=== PATIENT | female | born 1950 | race Caucasian/White ===

== ENCOUNTER 2022-08-04 08:00 | Outpatient (CLI) | payer MEDICARE, BC, SELFPAY ==
--- OUTSIDE RECORDS SUMMARY | 2022-08-04 08:05 | XMS_ITS | Encounter Summary ---
:1950 Author Organization [facility] Address [address] [place] [id number] Care Team Providers Name Role Phone Unavailable Primary Care Provider Unavailable Reason for Visit Auth/Cert (Routine) - Closed Specialty Diagnoses / Procedures Referred By Contact Refer red To Contact Gastroenterology Diagnoses Polyp History Rh Endoscopy Procedures COLONOSCOPY [address] [place] [address] Phone: Fax: Referral ID Status Reason Start Date Expiration Date Visits Requ ested Visits Authorized [id number] Closed 1 1 Encounter Details Date Type Department Care Team Description 06/05/2012 Hospital Encounter [facility] Wilfredo Kay MD Endoscopy [facility] [address] [place] [address] [place], [place] [phone] (Wo rk) [id number] [phone] Social History Tobacco Use Types Packs/Day Years Used Date Former Smoker Quit: 06/05/19 88 Smokeless Tobacco: Former User Alcohol Use Standard Drinks/Week Comments Yes 0 (1 standard drink = 0.6 oz pure alcoho l) daily Alcohol Habits Answer Date Recorded How often do you have a drink containing alcohol? Not asked How many drinks containing alcohol do you have on a typical Not asked day when you are drinking? How often do you have six or more drinks on one occasion? No t asked Comment: daily 06/05/2012 Sex Assigned at Date Recorded Not on file documented as of this encounter Last Filed Vital Signs Vital Sign Reading Time Taken Comments Blood Pressure 103/64 06/05/2012 9:54 AM CDT Pulse - - Temperature - - Respiratory Rate 12 06/05/2012 9:54 AM CDT Oxygen Saturation 95% 06/05/2012 9:54 AM CDT Inhaled Oxygen Concentration - - Weight 61.2 kg (135 lb) 06/05/2012 8:33 AM CDT Height 162.6 cm (5' 4) 06/05/2012 8:33 AM CDT Body Mass Index 23.17 06/05/2012 8:33 AM CDT documented in this encounter Medications at Time of Discharge Medication Sig Dispensed Refills Start Date End Date Multiple Vitamin Take 1 tablet by 0 (MULTI-VITAMIN) per tablet mouth daily. psyllium 0.52 GM capsule Take 1 capsule by 0 mouth daily. SIMVASTATIN PO Take by mouth. 0 documented as of this encounter H&P Notes Trae Kay MD - 06/05/2012 8:59 AM CDT Pre-Endoscopy History and Physical Jeanine Pettit Date of : 1950 Age: [age] year old Date of Procedure: 06/05/2012 Primary care provider: No primary provider on file. Type of Endoscopy: colonoscopy Reason for Procedure: Hx of polyps - sessile serrated adenoma of right colon Type of Anesthesia Anticipated: Moderate (conscious) sedation } HPI: Jeanine is a 61 year old female who will be undergoing the above procedure. A history and physical has been performed. The patient's medications and allergies have been reviewed. The risks and benefits of the procedure and the sedation options and risks were discussed with thepatient. All questions were answered and informed consent was obtained. She reports a personal or family history of anesthesia complications or bleeding disorders. Allergies Allergen Reactions ??? Demerol Nausea and Vomiting Current Facility-Administered Medications Medication ??? Lidocaine 1% injection 1 mL ??? lidocaine 4 % (LMX4) cream ??? sodium chloride (PF) 0.9% flush 3 mL ??? sodium chloride (PF) 0.9% flush 3 mL ??? Lidocaine 1% injection 1 mL ??? lidocaine 4 % (LMX4) cream ??? sodium chloride (PF) 0.9% flush 3 mL ??? sodium chloride (PF) 0.9% flush 3 mL There is no problem list on file for this patient. Past Medical History Diagnosis Date ??? Hyperlipidaemia per pt reprt Past Surgical History Procedure Date ??? Gi surgery right hemicoloecotmy History Substance Use Topics ??? Smoking status: Former Smoker Quit date: 06/05/1988 ??? Smokeless tobacco: Former User ??? Alcohol Use: Yes daily Family History Problem Relation Age of Onset ??? Colon CA Father REVIEW OF SYSTEMS: 5 point ROS negative except as noted above in HPI, including Gen., Resp., CV, GI & system review. PHYSICAL EXAM: Ht 1.626 m (5' 4) Wt 61.236 kg (135 lb) BMI 23.17 kg/m2 Estimated Body mass index is 23.17 kg/(m^2) as calculated from the following: Height as of this encounter: 5' 4(1.626 m). Weight as of this encounter: 135 lb(61.236 kg). GENERAL APPEARANCE: healthy MENTAL STATUS: alert AIRWAY EXAM: Mallampatti Class I (visualization of the soft palate, fauces, uvula, anterior and posterior pillars) RESP: lungs clear to auscultation - no rales, rhonchi or wheezes CV: normal S1 S2, no S3 or S4 DIAGNOSTICS: Not indicated IMPRESSION ASA Class 1 - Healthy patient, no medical problems PLAN: colonoscopy The above has been forwarded to the consulting provider. Signed Electronically by: Trae Kay June 05, 2012 . documented in this encounter Plan of Treatment Not on filedocumented as of this encounter Procedures Procedure Name Priority Date/Time Associated Diagnosis Comme nts COLONOSCOPY 06/05/2012 8:37 AM CDT hx of polyps Special Needs Ref: Dr Oreilly COLONOSCOPY Routine 06/05/2012 8:32 AM CDT Resul ts for this procedure are in the results section . documented in this encounter Results COLONOSCOPY (06/05/2012 8:32 AM CDT) [facility] Method Time Signature COLONOSCOPY [facility] RAD IOLOGY RESULTS Patient Name: Jeanine Pettit ? Procedure Date: 06/05/2012 8:32:35 AM ? Date of : 1950 ? Admit Type: Outpatient ? Age: 61 ? Gender: Female ? Attending MD: Trae Rodriguez MD ? Procedure: ?Colonoscopy Indications: ?Personal histor y of colonic polyps - sessile ?serrated adenoma of [facility] colon Providers: ?Trae Kay MD Referring : ? Janice Oreilly MD, Jaylen Brooks MD Medicines: ?Fentanyl 100 micrograms IV, Midazolam 2 mg IV, ?Atropine 0.6 mg IV Complications: ?No immediate complications Procedure: ?Pre-Anesthesia Assessment: ?- Prior to the procedure, a History and Physical ?was performed, and patient medications and ?allergies were reviewed. The patient is competent. ?The risks and benefits of the procedure and the ?sedation options and risks were discussed with the ?patient. All questions were answered and informed ?consent was obtained. Patient identification and ?proposed procedure were verified by the physician ?in the procedure room. Mental Status Examination: ?alert and oriented. Airway Examination: normal ?oropharyngeal airway and neck mobility. Respiratory ?Examination: clear to auscultation. CV Examination: ?normal. ASA Grade Assessment: I - A normal, healthy ?patient. After reviewing the risks and benefits, ?the patient was deemed in satisfactory condition to ?undergo the procedure. The anesthesia plan was to ?use moderate sedation / analgesia (conscious ?sedation). Immediately prior to administration of ?medications, the patient was re-assessed for ?adequacy to receive sedatives. The heart rate, ?respiratory rate, oxygen saturations, blood ?pressure, adequacy of pulmonary ventilation, and ?response to care were monitored throughout the ?procedure. The physical status of the patient was ?re-assessed after the procedure. ?After obtaining informed consent, the colonoscope ?was passed under direct vision. Throughout the ?procedure, the patient's blood pressure, pulse, and ?oxygen saturations were monitored continuously. The ?Colonoscope was introduced through the anus and ?advanced to the terminal ileum. The colonoscopy was ?performed without difficulty. The patient tolerated ?the procedure well. The quality of the bowel ?preparation was excel lent. ? Findings: ? The digital rectal exam was normal. The rectum, sigmo id colon, ? descending colon, splenic flexure, transverse c olon, hepatic flexure, ? ileum and anastomosis appeared no rmal. The retroflexed view of the anal ? verge was normal and showed no anal or rectal abnorma lities. The ? terminal ileum appeared normal. ? Impression: ? - The rectum, sigmoid colon, descending colon, ?splenic flexure, transverse colon, hepatic flexure, ?terminal ileum and colonic anastomosis are normal. ?- The examined portion of the ileum was normal. Recommendation: ? - Discharge patient to home ( ambulatory). ?- Repeat colonoscopy in 2 years for surveillance. ?- Return to primary care physician PRN. ? Krunal Kay M.D Trae Kay MD Signed Date: 06/05/2012 9:22:07 AM Number of Addenda: 0 I was physically present for the entire viewing portion of t he exam. Note Initiated On: 06/05/2012 8:32:35 AM Scope Withdrawal Time: 0 hours 6 minutes 39 seconds Total Procedure Duration: 0 hours 12 minutes 42 seconds Specimen (Source) Anatomical Collection Method Collection Time Re ceived Time Location / / Volume Laterality 06/05/2012 8:32 AM CDT Janice Oreilly MD PROCEDURES Performing Organization Address City/State/ZIP Code Phon e Number RADIOLOGY RESULTS documented in this encounter Visit Diagnoses Not on filedocumented in this encounter Active and Recently Administered Medications Times are shown in CDT. PRN Medication Order 06/03/2012 06/04/2012 06/05/2012 atropine injection (CANCELED) 07 22 (Given - Provider: Trae Kay MD) PRN, Starting 06/05/12 at 0902, Intra-procedure fentaNYL (SUBLIMAZE) injection (CANCELED) 901 (Given - Provider: Trae Kay MD) PRN, moderate to severe pain, Starting 06/05/12 at 0902, Intr a-procedure midazolam (VERSED) injection (CANCELED) 901 (Given - Provider: Trae Kay MD) PRN, anxiety, Starting 06/05/12 at 0902, Intra-procedure documented in this encounter
--- OUTSIDE RECORDS SUMMARY | 2022-08-04 08:05 | XMS_ITS | Encounter Summary ---
:1950 Author Organization [facility] Address [address] [place] [address] Care Team Providers Name Role Phone [facility] Unavailable Tena Romero PA-C Primary Care Provider Encounter Details Date Type Department Care Team Description 07/13/2021 Travel Social History Tobacco Use Types Packs/Day Years Used Date Former Smoker Quit: 06/05/19 88 Smokeless Tobacco: Former User Alcohol Use Standard Drinks/Week Comments Yes 0 (1 standard drink = 0.6 oz pure alcoho l) 1-2 glasses daily Alcohol Habits Answer Date Recorded How often do you have a drink containing alcohol? Not asked How many drinks containing alcohol do you have on a Not aske d typical day when you are drinking? How often do you have six or more drinks on one Not asked occasion? Comment: 1-2 glasses daily 07/13/2021 Sex Assigned at Date Recorded Not on file COVID-19 Exposure Response Date Recorded In the last month, have you been in contact with No / Unsure 07/13/2021 8:00 AM CDT someone who was confirmed or suspected to have Coronavirus / COVID-19? documented as of this encounter Plan of Treatment Not on filedocumented as of this encounter Visit Diagnoses Not on filedocumented in this encounter Care Teams Commission Auditor Relationship Specialty Start Date End Date Tena Romero PA-C PCP - General 06/16/21 [facility] [address] [place], [place] [phone] [facility] 06/01/17 [address] [place] [address] documented as of this encounter
--- OUTSIDE RECORDS SUMMARY | 2022-08-04 08:05 | XMS_ITS | Encounter Summary ---
:1950 Author Organization [facility] Address [address] [place], [place] [address]. [place] [address] Care Team Providers Name Role Phone Janice Oreilly MD Primary Care Provider Clinic, [facility] Encounter Details Date Type Department Care Team Description 05/13/2021 Orders Only [facility] Taras Redman for screening Clinic Amber Baird MD for other viral [id number] [place] [address] [facility] [place], [place] GASTROINTESTINAL [id number] [phone] [place], [place] [phone] Social History Tobacco Use Types Packs/Day Years [...] on file documented as of this encounter Plan of Treatment Not on filedocumented as of this encounter Results Asymptomatic COVID-19 Virus (Coronavirus) by PCR Nasopharyngeal (07/09/2021 9:58 AM CDT) Analysis Performed At [facility] Time Signature SARS CoV2 PCR Negative Negative 07/10/2021 [facility] 1:09 PM CDT LABORATORY Comment: NEGATIVE: SARS-CoV-2 (COVID-19) RNA not detected, presumed negative. Specimen Anatomical Location / Collection Method Collection Seth e Received Time (Source) Laterality / Volume Swab NASOPHARYNGEAL Non-blood 07/09/2021 9:58 07/09/2021 STRUCTURE / Unknown Collection / AM CDT 10:00 AM CDT Unknown Narrative [facility] - 07/10/2021 1:09 PM C DT Testing was performed using the kristine SARS-CoV-2 assay on the kristine Retrace0 System. This test should be ordered for the detection of SARS-CoV-2 in individuals who meet SARS- CoV-2 clinical and/or epidemiological criteria. Test performan ce is unknown in asymptomatic patients. This test is for in vitro diag nostic use under the FDA EUA for laboratories certified under CLIA to perform high and/or moderate complexity testing. This test has not be en FDA cleared or approved. A negative result does not rule out the pr esence of PCR inhibitors in the specimen or target RNA in concentrat ion below the limit of detection for the assay. The possibility of a false negative should be considered if the patient's recent ex posure or clinical presentation suggests COVID-19. This waldemar t was validated by the [facility] Infectious Diseases Diag nostic Laboratory. This laboratory is certified under the [facility] Laboratory Improvement Amendments of 1988 (CLIA-88) as qualifie d to perform high and/or moderate complexity laboratory testing. Taras Redman MD LAB - MICRO GENERAL ORDERABL ES Performing Organization Address City/State/ZIP Code Phon e Number [facility] [place] [phone] Diag. Lab [address] [facility], [address] [facility] Infectious [place], [place] [phone] Diseases Diagnostic [phone], [facility] Lab (IDDL) [address] [facility], Room [address]297 documented in this encounter Visit Diagnoses Diagnosis Encounter for screening for other viral diseases documented in this encounter Care Teams Account Strategist Relationship Specialty Start Date End Date Janice Oreilly MD PCP - General Family Practice 05/14/14 06/15/21 [facility] [address] [place] [address] Clinic, [facility] 06/01/17 [facility] [address] [place], [place] [phone] documented as of this encounter
--- OUTSIDE RECORDS SUMMARY | 2022-08-04 08:05 | XMS_ITS | Encounter Summary ---
:1950 Author Organization [facility] Address [address] [place] [address]. [place] [address] Care Team Providers Name Role Phone Janice Oreilly MD Primary Care Provider Clinic, [facility] Reason for Visit Auth/Cert Specialty Diagnoses / Procedures Referred By Contact Refer red To Contact Gastroenterology Diagnoses Screening Rh Endoscopy Procedures COLONOSCOPY [address] [place] [address] Phone: Fax: Referral ID Status Reason Start Date Expiration Date Visits Requ ested Visits Authorized [id number] 1 1 Encounter Details Date Type Department Care Team Description 06/21/2017 Hospital Encounter [facility] Taras Redman , Endoscopy Dayanna MILLER [address] [place], [place] GASTROINTESTINAL [id number] [facility] [phone] [place], [place] [id number] (Wo rk) Social History Tobacco Use Types Packs/Day Years [...] Sign Reading Time Taken Comments Blood Pressure 124/75 06/21/2017 8:23 AM CDT Pulse - - Temperature - - Respiratory Rate 12 06/21/2017 8:23 AM CDT Oxygen Saturation 97% 06/21/2017 8:23 AM CDT Inhaled Oxygen Concentration - - Weight 63.5 kg (140 lb) 06/21/2017 7:22 AM CDT Height 163.8 cm (5' 4.5) 06/21/2017 7:22 AM CDT Body Mass Index 23.66 06/21/2017 7:22 AM CDT documented in this encounter Discharge Instructions Discharge InstructionsJeromy Morrissey RN - 06/21/2017 8:14 AM CDT The patient has received a copy of the Provation report the doctor has written and discharge instructions have been discussed with the patient and responsible adult. All questions were addressed and answered prior to patient discharge. documented in this encounter Medications at Time of Discharge Medication Sig Dispensed Refills Start Date End Date ASPIRIN PO Take 81 mg by mouth 0 daily calcium carbonate (OS-GRABIEL Take 2 tablets by 0 500 MG GALENA. CA) 1250 MG mouth daily tablet Multiple Vitamin Take 1 tablet by 0 (MULTI-VITAMIN) per tablet mouth daily. psyllium 0.52 GM capsule Take 1 capsule by 0 mouth daily. SIMVASTATIN PO Take by mouth. 0 documented as of this encounter H&P Notes Taras Redman MD - 06/21/2017 7:23 AM CDT Pre-Endoscopy History and Physical Jeanine Pettit Date of : 1950 Age: [age] year old Date of Procedure: 06/21/2017 Primary care provider: Janice Oreilly Type of Endoscopy: Colonoscopy with possible biopsy, possible polypectomy Reason for Procedure: screen Type of Anesthesia Anticipated: Conscious Sedation HPI: Jeanine is a 66 year old female who will be undergoing the above procedure. A history and physical has been performed. The patient's medications and allergies have been reviewed. The risks and benefits of the procedure and the sedation options and risks were discussed with thepatient. All questions were answered and informed consent was obtained. She denies a personal or family history of anesthesia complications or bleeding disorders. There is no problem list on file for this patient. Past Medical History: Diagnosis Date ??? Hyperlipidaemia per pt reprt Past Surgical History: Procedure Laterality Date ??? COLONOSCOPY 06/05/2012 Procedure: COLONOSCOPY; COLONOSCOPY; Surgeon: Trae Kay MD; Location: [facility] ??? COLONOSCOPY 06/04/2014 Procedure: COLONOSCOPY; Surgeon: Taras Redman MD; Location: [facility] ??? GI SURGERY 05/29/2010 right hemicholecotmy Social History Substance Use Topics ??? Smoking status: Former Smoker Quit date: 06/05/1988 ??? Smokeless tobacco: Former User ??? Alcohol use Yes Comment: daily Family History Problem Relation Age of Onset ??? Other Cancer Father 85 stomach/small bowel, not sure. ??? Colon Cancer No family hx of Prior to Admission medications Medication Sig Start Date End Date Taking? Authorizing Provider ASPIRIN PO Take 81 mg by mouth daily Yes Reported, Patient calcium carbonate (OS-GRABIEL 500 MG GALENA. CA) 1250 MG tablet Take 2 tablets by mouth daily Yes Reported, Patient SIMVASTATIN PO Take by mouth. Yes Reported, Patient Multiple Vitamin (MULTI-VITAMIN) per tablet Take 1 tablet by mouth daily. Yes Reported, Patient psyllium 0.52 GM capsule Take 1 capsule by mouth daily. Yes Reported, Patient Allergies Allergen Reactions ??? Demerol Nausea and Vomiting REVIEW OF SYSTEMS: 5 point ROS negative except as noted above in HPI, including Gen., Resp., CV, GI & system review. PHYSICAL EXAM: There were no vitals taken for this visit. Estimated body mass index is 24.03 kg/(m^2) as calculatedfrom the following: Height as of 06/04/14: 1.626 m (5' 4). Weight as of 06/04/14: 63.5 kg (140 lb). GENERAL APPEARANCE: alert, and oriented MENTAL STATUS: alert AIRWAY EXAM: Mallampatti Class I (visualization of the soft palate, fauces, uvula, anterior and posterior pillars) RESP: lungs clear to auscultation - no rales, rhonchi or wheezes CV: regular rates and rhythm DIAGNOSTICS: Not indicated IMPRESSION ASA Class 2 - Mild systemic disease PLAN: Plan for Colonoscopy with possible biopsy, possible polypectomy. We discussed the risks, benefits and alternatives and the patient wished to proceed. The above has been forwarded to the consulting provider. Signed Electronically by: Taras Redman June 21, 2017 documented in this encounter Plan of Treatment Not on filedocumented as of this encounter Procedures Procedure Name Priority Date/Time Associated Diagnosis Comme nts COLONOSCOPY 06/21/2017 7:23 AM CDT screen Special Needs Suchmel COLONOSCOPY Routine 06/21/2017 7:18 AM CDT Resul ts for this procedure are in the results section . documented in this encounter Results COLONOSCOPY (06/21/2017 7:18 AM CDT) [facility] Method Time Signature COLONOSCOPY [facility] RAD IOLOGY RESULTS Patient Name: Jeanine Pettit ?Procedure Date: 06/21/2017 7:18 AM ? Accou nt Number: [id number] Date of : 1950 ? Admit Type: Out patient Age: 66 ? Gender: Female Attending MD: Taras Redman MD ?? Total Sedation Time: 17 min. Instrument Name: 135 ? Procedure: ?Colonoscopy Indications: ?High ri sk colon cancer surveillance: Personal ?history of colonic po lyps Providers: ?Taras Redman MD (Doc tor) Referring MD: ? Janice Oreilly Md, MD (Referring MD), February ?MD Arden (Referri marcell MILLER) Medicines: ?Midazolam 2 mg IV, Fentanyl 100 micrograms IV Complications: ?No immediate complications. Procedure: ?Pre-Anesthesia Assessment: ?- Prior to the procedure, a History and Physical ?was performed, and patient medications and ?allergies were reviewed. The patient is competent. ?The risks and benefits of the procedure and the ?sedation options and risks were discussed with the ?patient. All questions were answered and informed ?consent was obtained. Patient identification and ?proposed procedure were verified in the procedure ?room. Mental Status Examination: alert and ?oriented. Airway Examination: normal oropharyngeal ?airway and neck mobility. Respiratory Examination: ?clear to auscultation. CV Examination: normal. ?Prophylactic Antibiotics: The patient does not ?r equire prophylactic antibiotics. Prior ?Anticoagulants: The patient has taken no previous ?anticoagulant or antiplatelet agents. ASA Grade ?Assessment: I - A normal, healthy patient. After ?reviewing the risks and benefits, the patient was ?deemed in satisfactory condition to undergo the ?procedure. The anesthesia plan was to use moderate ?sedation / analgesia (conscious sedation). ?Immediately prior to administration of medications, ?the patient was re-assessed for adequacy to receive ?sedatives. The heart rate, respiratory rate, oxygen ?saturations, blood pressure, adequacy of pulmonary ?ventilation, and response to care were monitored ?throughout the procedure. The physical status of ?the patient was re-assessed after the procedure. ?After obtaining informed consent, the colonoscope ?was passed under direct vision. Throughout the ?procedure, the patient's blood pressure, pulse, and ?oxygen saturations were monitored continuously. The ?[employer] Peds Colonoscope Model #[id number]-H190L, ?Endora#135, SN#[id number] was introduced through the ?anus and advanced to the ileocolonic anastomosis. ?The colonoscopy was performed without difficulty. ?The patient tolerated the procedure well. The ?quality of the bowel preparation was good. ? Findings: ? The perianal and digital rectal examinations were nor mal. ? The entire examined colon appeared normal on direct and retroflexion ? views. ? Impression: ? - The entire examined colon is normal on direct and ?retroflexion views. ?- No specimens collec leandro. Recommendation: ? - Repeat colonoscopy in 3 years for surveillance. ? Procedure Code(s): ? --- Professional --- ? G0105, Colorectal cancer screening; colonoscopy on individual at high ? risk Diagnosis Code(s): ? --- Professional --- ? Z86.010, Personal history of colonic polyps CPT copyright 2016 [employer]. All rights reserved. The codes documented in this report are prelimin hallie and upon braille coder review may be revised to meet current compliance requirements. Electronically signed by Taras Redman MD Taras Redman MD 06/21/2017 7:53:09 AM I was physically present for the entire viewing portion of t he exam. Taras Redman MD Number of Addenda: 0 Note Initiated On: 06/21/2017 7:18 AM MRN: ?[id number] Procedure Date: ? 06/21/2017 7:18:53 AM Scope Withdrawal Time: 0 hours 6 minutes 40 seconds Total Procedure Duration: 0 hours 14 minutes 22 seconds Estimated Blood Loss: ? Scope In: 7:33:53 AM Scope Out: 7:48:15 AM Specimen (Source) Anatomical Collection Method Collection Time Re ceived Time Location / / Volume Laterality 06/21/2017 7:18 AM CDT February Ar[place] PROCEDURES Performing Organization Address City/State/ZIP Code Phon e Number RADIOLOGY RESULTS documented in this encounter Visit Diagnoses Not on filedocumented in this encounter Administered Medications Inactive Administered Medications - up to 3 most recent administrations Medication Order MAR Action Action Date Dose Rate Site 0.9% sodium chloride BOLUS New Bag 06/21/2017 7:54 AM CDT 500 mLs 500 mL/hr CONTINUOUS PRN, Starting on Mon06/21/17 at 0754, Intra-procedure fentaNYL (PF) (SUBLIMAZE) injection Given 06/21/2017 7:32 AM CDT 100 mcg PRN, Starting on Mon06/21/17 at 0732, Intra-procedure lidocaine (LMX4) kit Topical, EVERY 1 HOUR PRN, mild pain, with VAD inserti on or accessing implanted port,, Starting on Mon06/21/17 at 0719, For 1 dose, Do NOT give if patient has a history of allergy to any local anesthetic or any manas ne product. Apply 30 min prior to VAD insertion or port access. MAX Dose: 2.5 g m (?? of 5 gm tube), Pre-procedure lidocaine 1 % 1 mL 1 mL, Other, EVERY 1 HOUR PRN, mild pain with VAD insertion or accessing implanted port., Starting on Mon06/21/17 at 0719, Do NOT give if patient has a history of allergy to any local anesthetic or any taco product. MAX dose 1 mL subcutaneous OR intradermal in divided doses., Pre-procedure midazolam (VERSED) injection Given 06/21/2017 7:32 AM CDT 2 mg PRN, Starting on Mon06/21/17 at 0732, Intra-procedure ondansetron (ZOFRAN) injection 4 mg 4 mg, Intravenous, EVERY 6 HOURS PRN, nausea, vomiting , Administer over 2-5 Minutes, Starting on Mon06/21/17 at 0755, This is Step 1 of nausea and vomiting management. If nausea not resolved in 15 minutes, go t o Step 2 prochlorperazine (COMPAZINE). Irritant., Post-procedure ondansetron (ZOFRAN-ODT) ODT tab 4 mg 4 mg, Oral, EVERY 6 HOURS PRN, nausea, v omiting, Starting on Mon06/21/17 at 0755, This is Step 1 of nausea and vomiting management. If n ausea not resolved in 15 minutes, go to Step 2 prochlorperazine (COMPAZINE). Do not push through foil backing. Peel back foil and gently remove. Place on to ngue immediately. Administration with liquid unnecessary, Post-procedure sodium chloride (PF) 0.9% PF flush 3 mL 3 mL, Intravenous, EVERY 1 HOUR PRN, kathy e flush, post meds or blood draw, Starting on Mon06/21/17 at 0719, for peripheral IV flush post IV meds, Pre-procedure sodium chloride (PF) 0.9% PF flush 3 mL 3 mL, Intravenous, EVERY 8 HOURS, First dose on Mon06/21/17 at 0730, And Q1H PRN, to lock peripheral IV dormant line. , Pre-procedure sodium chloride (PF) 0.9% PF flush 3 mL 3 mL, Intravenous, EVERY 1 MIN PRN, line flush, after medication administration, Starting on Mon06/21/17 at 0719, For theresa pheral IV flush post IV meds, Pre-procedure sodium chloride (PF) 0.9% PF flush Given 06/21/2017 7:32 AM CDT 3 mLs PRN, Starting on Mon06/21/17 at 0732, Intra-procedure documented in this encounter Active and Recently Administered Medications Times are shown in CDT. Scheduled Medication Order 06/19/2017 06/20/2017 06/21/2017 0.9% sodium chloride BOLUS 0730 (Canceled Entry - Provider: Orders Generic Provider - Comment: Automatically canceled at discontinue of medication order) Intravenous, 500 mL, ONCE, at 500 mL/hr, Administer over 1 Hours, Mon06/21/17 at 0730, For 1 dose, ~ For hypotension hypotensive (Systolic Blood Pressure less than 100 mmHg) prior to the procedure. Immed iately recheck Blood Pressure and if Sys tolic Blood Pressure still below 100 mmHg, give IV bolus. ~ For nausea/vomiting, give IV bolus. Notify Provider if IV bolus given., Pre-procedure sodium chloride (PF) 0.9% PF flush 3 mL 0730 (Canceled Entry - Provider: Orders Generic Provider - Comment: Automatically canceled at discontinue of medication order) 3 mL, Intravenous, EVERY 8 HOURS, First dose on Mon06/21/17 at 0730, And Q1H PRN, to lock peripheral IV dormant line. , Pre-procedure PRN Medication Order 06/19/2017 06/20/2017 06/21/2017 0.9% sodium chloride BOLUS 0754 (New Bag - Provider: Anastasia Dyer RN - Comment: vorb given in recovery for nausea) CONTINUOUS PRN, Starting Mon06/21/17 at 0754, Intra-procedure fentaNYL (PF) (SUBLIMAZE) injection 0732 (Given - Provider: Taras Redman MD) PRN, Starting Mon06/21/17 at 0732, Intra-procedure flumazenil (ROMAZICON) injection 0.2 mg 0.2 mg, Intravenous, EVERY 1 MIN PRN, be nzodiazepine reversal, over sedation, Starting Mon06/21/17 at 0755, For 12 hours, Give over 15 seconds. If inadequate response after 45 seconds, may repeat up to a MAX total dose of 1 mg. Continue monito ring until discharge criteria are met for a minimum of 2 hours Irritant., Post-procedure lidocaine (LMX4) kit Topical, EVERY 1 HOUR PRN, mild pain, wi th VAD insertion or accessing implanted port,, Starting Mon06/21/17 at 0719, For 1 dose, Do NOT give if patient has a history of allergy to any local anesthetic or any taco product. Apply 30 min prior to VAD insertion or port access. MAX Dose: 2.5 gm (?? of 5 gm tube), Pre-procedure lidocaine 1 % 1 mL 1 mL, Other, EVERY 1 HOUR PRN, mild pain with VAD insertion or accessing implanted port., Starting Mon06/21/17 at 0719, Do NOT give if patient has a history of allergy to any local anesthetic or any manas ne product. MAX dose 1 mL subcutaneous OR intradermal in divided doses., Pre-procedure May continue current IV fluid if patient has IV fluids infusing until discharge. CONTINUOUS PRN, Starting Mon06/21/17 at 0 755, Until Mon06/21/17 at 1043, Post-procedure midazolam (VERSED) injection 073 2 (Given - Provider: Taras Redman MD) PRN, Starting Mon06/21/17 at 0732, Intra-procedure naloxone (NARCAN) injection 0.1-0.4 mg 0.1-0.4 mg, Intravenous, EVERY 2 MIN PRN , opioid reversal, Starting Mon06/21/17 at 0755, For 24 hours, For apnea or imminent respiratory arrest: give 0.4 mg IV undiluted Q 2 minutes PRN until desired deg ree of reversal is obtained, stop opioid and notify provider. Continue monitoring until discharge criteria are met for a minimum of 2 hours. For severe sedation, decrease in respiratory depth, quality o r Respiratory Rate less than 8: give 0.1 mg IV Q 2 minutes x 3 doses, stop opioid and notify provider. Try to minimize reversal of analgesia especially in end-of-life patients. Continue monitoring until discharge criteria are met for a minimum of 2 hours, Post-proce dure ondansetron (ZOFRAN) injection 4 mg (COMPLETED) 075 (Given - Provider: Anastasia Dyer RN - Comment: vorb given in recovery for nausea) 4 mg, Intravenous, ONCE PRN, nausea, vom iting, Administer over 2-5 Minutes, Starting Mon06/21/17 at 0719, For 1 dose, Give in ENDO pre procedure prep area. Irritant., Pre-procedure ondansetron (ZOFRAN) injection 4 mg(Linked Group 1) 4 mg, Intravenous, EVERY 6 HOURS PRN, na usea, vomiting, Administer over 2-5 Minutes, Starting Mon06/21/17 at 0755, This is Step 1 of nausea and vomiting management. If nausea not resolved in 15 minutes, go to Step 2 prochlorperazine (COMPAZINE). Irritant., Post-proce dure ondansetron (ZOFRAN-ODT) ODT tab 4 mg(Linked Group 1) 4 mg, Oral, EVERY 6 HOURS PRN, nausea, v omiting, Starting Mon06/21/17 at 0755, This is Step 1 of nausea and vomiting management. If nausea not resolved in 15 minutes, go to Step 2 prochlorperazine (BARBARA ZINE). Do not push through foil backing. Peel back foil and gently remove. Place on tongue immediately. Administration with liquid unnecessary, Post-procedure sodium chloride (PF) 0.9% PF flush 3 mL 3 mL, Intravenous, EVERY 1 HOUR PRN, kathy e flush, post meds or blood draw, Starting Mon06/21/17 at 0719, for peripheral IV flush post IV meds, Pre-procedure sodium chloride (PF) 0.9% PF flush 3 mL 3 mL, Intravenous, EVERY 1 MIN PRN, line flush, after medication administration, Starting Mon06/21/17 at 0719, For peripheral IV flush post IV meds, Pre-procedure sodium chloride (PF) 0.9% PF flush 3 mL 3 mL, Intravenous, EVERY 1 MIN PRN, line flush, after medication administration. For peripheral IV flush post IV meds, Starting Mon06/21/17 at 0755, Post-procedure sodium chloride (PF) 0.9% PF flush 0732 (Given - Provider: Taras Redman MD) PRN, Starting Mon06/21/17 at 0732, Intra-procedure Linked Groups Order Group 1: ondansetron (ZOFRAN-ODT) ODT tab 4 mgJump to med 4 mg, Oral, EVERY 6 HOURS PRN, nausea, v omiting, Starting Mon06/21/17 at 0755
This is Step 1 of nausea and vomiting management. If nausea not resolved in 15 minutes, go to José Miguel p 2 prochlorperazine (COMPAZINE). Do not push through foil backing. Peel back foil and gently remove. Place on tongue immediately. Administration with liquid unnecessary
Post-procedure Or ondansetron (ZOFRAN) injection 4 mgJump to med 4 mg, Intravenous, EVERY 6 HOURS PRN, na usea, vomiting, Administer over 2-5 Minutes, Starting Mon06/21/17 at 0755
This is Step 1 of nausea and vomiting management. If nausea n ot resolved in 15 minutes, go to Step 2 prochlorperazine (COMPAZINE). Irritant.
Post-procedure documented in this encounter Care Teams Supervisor Fruit Grading Relationship Specialty Start Date End Date Janice Oreilly MD PCP - General [facility] 05/14/14 06/15/[address] [address] [facility] 06/01/[address] [address] documented as of this encounter
--- OUTSIDE RECORDS SUMMARY | 2022-08-04 08:05 | XMS_ITS | Encounter Summary ---
:1950 Author Organization [facility] Address [address] [place] [address]. [place] [address] Care Team Providers Name Role Phone Clinic, [facility] Tena Romero PA-C Primary Care Provider Reason for Visit Auth/Cert Specialty Diagnoses / Procedures Referred By Contact Refer red To Contact Gastroenterology Diagnoses Screen for colon cancer Screen for colon cancer [Z12.11] Endoscopy Procedures HC COLONOSCOPY W/WO BRUSH/WASH COLONOSCOPY [address] [place] [address] Phone: Fax: Referral ID Status Reason Start Date Expiration Date Visits Requ ested Visits Authorized [id number] 1 1 Encounter Details Date Type Department Care Team Description 07/13/2021 Hospital Encounter [facility] Taras Redman , Endoscopy Dayanna MILLER [address] [place], [place] GASTROINTESTINAL [id number] [phone] [place], [place] [phone] (Wo rk) Social History Tobacco Use Types [...] / COVID-19? documented as of this encounter Last Filed Vital Signs Vital Sign Reading Time Taken Comments Blood Pressure 114/73 07/13/2021 10:00 AM CDT Pulse 65 07/13/2021 10:00 AM CDT Temperature 36.9 ??C (98.4 ??F) 07/13/2021 9:01 AM CDT Respiratory Rate 17 07/13/2021 10:00 AM CDT Oxygen Saturation 94% 07/13/2021 10:00 AM CDT Inhaled Oxygen Concentration - - Weight 63.5 kg (140 lb) 07/13/2021 8:33 AM CDT Height 163.8 cm (5' 4.5) 07/13/2021 8:33 AM CDT Body Mass Index 23.66 07/13/2021 8:33 AM CDT documented in this encounter Discharge Instructions Discharge InstructionsCelina Carroll RN - 07/13/2021 9:32 AM CDT Images from the original note were not included. Eating a High-Fiber Diet Fiber is what gives strength and structure to plants. Most grains, beans, vegetables, and fruits contain fiber. Foods rich in fiber are often low in calories and fat, and they fill you up more. They may also reduce your risks for certain health problems. To find out the amount of fiber in canned, packaged, or frozen foods, read the ???Nutrition Facts?? label. It tells you how much fiber is in a serving. Types of Fiber and Their Benefits There are two types of fiber: insoluble and soluble. They both aid digestion and help you maintain ahealthy weight. Insoluble fiber: This is found in whole grains, cereals, certain fruits and vegetables (such as apple skin, corn, and carrots). Insoluble fiber may prevent constipation and reduce the risk of certain types of cancer. Soluble fiber: This type of fiber is in oats, beans, and certain fruits and vegetables (such as strawberries and peas). Soluble fiber can reduce cholesterol (which may help lower the risk of heart disease), and helps control blood sugar levels. Look for High-Fiber Foods Whole-grain breads and cereals: Try to eat 6-8 ounces a day. Include wheat and oat bran cereals, whole-wheat muffins or toast, and corn tortillas in your meals. Fruits: Try to eat 2 cups a day. Apples, oranges, strawberries, pears, and bananas are good sources.(Note: Fruit juice is low in fiber.) Vegetables: Try to eat 3 cups a day. Add asparagus, carrots, broccoli, peas, and corn to your meals. Legumes (beans): One cup of cooked lentils gives you over 15 grams of fiber. Try navy beans, lentils, and chickpeas. Seeds: A small handful of seeds gives you about 3 grams of fiber. Try sunflower seeds. Keep Track of Your Fiber A healthy diet includes 31 grams of fiber a day if you have a 2,000-calorie diet. Keep track of how much fiber you eat. Start by reading food labels. Then eat a variety of foods high in fiber. Ask yourdoctor about supplemental fiber products. ?? [id number] [place] [address]. All rights reserved. This information is not intended as a substitute for professional medical care. Always follow your healthcare professional's instructions. Understanding Diverticulosis and Diverticulitis Pouches or diverticula usually occur in the lower part of the colon called the sigmoid. Diverticulitis occurs when the pouches become inflamed. The colon (large intestine) is the last part of the digestive tract. It absorbs water from stool andchanges it from a liquid to a solid. In certain cases, small pouches called diverticula can form in the colon wall. This condition is called diverticulosis. The pouches can become infected. If this happens, it becomes a more serious problem called diverticulitis. These problems can be painful. But they can be managed. Managing Your Condition Diet changes or taking medications are often tried first. These may be enough to bring relief. If the case is bad, surgery may be done. You and your doctor can discuss the plan that is best for you. If You Have Diverticulosis Diet changes are often enough to control symptoms. The main changes are adding fiber (roughage) and drinking more water. Fiber absorbs water as it travels through your colon. This helps your stool staysoft and move smoothly. Water helps this process. If needed, you may be told to take azqe-erz-zamicwg stool softeners. To help relieve pain, antispasmodic medications may be prescribed. If You Have Diverticulitis Treatment depends on how bad your symptoms are. For mild symptoms: You may be put on a liquid diet for a short time. You may also be prescribed antibiotics. If these two steps relieve your symptoms, you may then be prescribed a high-fiber diet. If you still have symptoms, your doctor will discuss further treatment options with you. For severe symptoms: You may need to be admitted to the hospital. There, you can be given IV antibiotics and fluids. Once symptoms are under control, the above treatments may be tried. If these don???tcontrol your condition, your doctor may discuss the option of having surgery with you. [place] to Colon Health Help keep your colon healthy with a diet that includes plenty of high-fiber fruits, vegetables, and whole grains. Drink plenty of liquids like water and juice. Your doctor may also recommend avoiding seeds and nuts. ?? [id number] [facility], [address] [place] [address]. All rights reserved. This information is not intended as a substitute for professional medical care. Always follow your healthcare professional's instructions. documented in this encounter Medications at Time of Discharge Medication Sig Dispensed Refills Start Date End Date ASPIRIN PO Take 81 mg by mouth 0 daily calcium carbonate (OS-GRABIEL Take 2 tablets by 0 500 MG CHEESH-NA. CA) 1250 MG mouth daily tablet Multiple Vitamin Take 1 tablet by 0 (MULTI-VITAMIN) per tablet mouth daily. psyllium 0.52 GM capsule Take 1 capsule by 0 mouth daily. SIMVASTATIN PO Take by mouth. 0 documented as of this encounter H&P Notes Taras Redman MD - 07/13/2021 8:11 AM CDT Pre-Endoscopy History and Physical Jeanine Pettit Date of : 1950 Age: [age] year old Date of Procedure: 07/13/2021 Primary care provider: Tena Romero Type of Endoscopy: Colonoscopy with possible biopsy, possible polypectomy Reason for Procedure: polyps Type of Anesthesia Anticipated: Conscious Sedation HPI: Jeanine is a 71 year old female who will be undergoing [...] Taras Redman MD; Location: [facility] ??? COLONOSCOPY N/A 06/21/2017 Procedure: COLONOSCOPY; COLONOSCOPY ; Surgeon: Taras Redman MD; Location: [facility] ??? GI SURGERY 05/29/2010 right hemicholecotmy Social History Tobacco Use ??? Smoking status: Former Smoker Quit date: 06/05/1988 Years since quittin.1 ??? Smokeless tobacco: Former User Substance Use Topics ??? Alcohol use: Yes Comment: daily Family History Problem Relation Age of Onset ??? Other Cancer Father 85 stomach/small bowel, not sure. ??? Colon Cancer No family hx of Prior to Admission medications Medication Sig Start Date End Date Taking? Authorizing Provider ASPIRIN PO Take 81 mg by mouth daily Reported, Patient calcium carbonate (OS-GRABIEL 500 MG CHEESH-NA. CA) 1250 MG tablet Take 2 tablets by mouth daily Reported, Patient Multiple Vitamin (MULTI-VITAMIN) per tablet Take 1 tablet by mouth daily. Reported, Patient psyllium 0.52 GM capsule Take 1 capsule by mouth daily. Reported, Patient SIMVASTATIN PO Take by mouth. Reported, Patient Allergies Allergen Reactions ??? Demerol Nausea and Vomiting REVIEW OF SYSTEMS: 5 point ROS negative except as noted above in HPI, including Gen., Resp., CV, GI & system review. PHYSICAL EXAM: There were no vitals taken for this visit. Estimated body mass index is 23.66 kg/m?? as calculated from the following: Height as of 06/21/17: 1.638 m (5' 4.5). Weight as of 06/21/17: 63.5 kg (140 lb). GENERAL APPEARANCE: alert, [...] consulting provider. Signed Electronically by: Taras Redman MD July 13, 2021 documented in this encounter Miscellaneous Notes Result Encounter Note - Taras Redman MD - 07/13/2021 10:01 AM CDT Pt informed of results. No treatment at this time. Pt told to call if she has new symptoms. documented in this encounter Plan of Treatment Not on filedocumented as of this encounter Procedures Procedure Name Priority Date/Time Associated Comments Diagnosis SURGICAL PATHOLOGY Routine 07/13/2021 9:17 AM Res ults for this EXAM CDT procedure are i n the results section. COLONOSCOPY, WITH 07/13/2021 9:01 AM Screen for colon POLYPECTOMY AND CDT cancer BIOPSY Special Needs miralax ps 8/, BR (fv) COLONOSCOPY Routine 07/13/2021 8:56 AM CDT Resul ts for this procedure are in the results section . documented in this encounter Results Surgical Pathology Exam (07/13/2021 9:17 AM CDT) Component Value Ref Test Analysis Performed At [facility] Method Time Signature Case Report Surgical Pathology Report ? Case: [id number] ? 07/14/2021 Authorizing Provider: ??Taras Aragon MD ?Collected: ? 07/13/2021 09:17 AM ? 9:43 AM CDT LABORATO RY [facility] ?Received: ?07/13/2021 10:17 AM ? [facility] ? Pathologist: ? Melanie Kee, PhD ? Specimen: ?Small Intesti ne, Terminal Ileum, TERMINAL ILEUM BIOPSIES R/O INFLAMMATORY BOWEL ? DISEASE ? Final A(1). Small Intestine, Terminal Ileum, biopsy: 07/14/2021 Electronically Diagnosis -Active ileitis with erosion and focal glandular distortion (see comment). 9:43 AM CDT LABORATORY signed by Vidhya , -No granulomas identified. Melanie Tenorio MD PhD -Negative for dysplasia or malignancy. on 07/14/2021 at 9:43 AM Comment We note the 07/14/2021 clinical 9:43 AM CDT LABORATORY history of a ileocolonic anastomosis and observation of ulceration near anastomotic site. Current findings are consistent with anastomotic site changes. Case Images 07/14/2021 9:43 AM CDT LABORATORY Gross A(1). Small Intestine, Termi nal Ileum, TERMINAL ILEUM BIOPSIES R/O INFLAMMATORY BOWEL DISEASE: 07/14/2021 Description The specimen is received in formalin, labeled with the patient's name, medical record number and other identifying information designated terminal ileum biopsy. It consists of a joy tissue fragment me 9:43 AM CDT LABORATORY asuring up to 0.3 cm. The specimen is entirely submitted in 1 cassette. (BILLIE Phan ASCP) Microscopic Small bowel 07/14/2021 Description mucosa with 9:43 AM CDT LABORATORY focal erosion and acute inflammation and increased chronic inflammation. There is mild glandular distortion villous blunting. No granulomas and no dysplasia identified. Performing The technical 07/14/2021 Labs component of 9:43 AM CDT LABORATORY this testing was completed at [facility] Specimen Anatomical Collection Method Collection Time Receive d Time (Source) Location / / Volume Laterality Biopsy STRUCTURE OF 07/13/2021 9:17 AM 1 DISTAL PORTION OF CDT 10:17 AM C DT ILEUM / Unknown Taras Redman MD LAB - [facility] Performing Organization Address City/State/ZIP Code [place] [id number] Care Lab [address] Lab (1st floor, no room number) COLONOSCOPY (07/13/2021 8:56 AM CDT) [facility] Method Time Signature COLONOSCOPY [facility] RADIOLOGY RESULTS Patient Name: Jeanine Pettit ?Procedure D ate: 07/13/2021 8:56 AM ? Accou nt Number: [id number] Date of : 1950 ? Admit Type: Out patient Age: 71 ? Gender: Female Attending MD: Taras hinds MD ?? Total Sedation Time: 12_minutes continuous bedside 1:1 Instrument Name: 222 - Adult Colonoscope Procedure: ?Colonoscopy Indications: ?High ri sk colon cancer surveillance: Personal ?history of colonic po lyps Providers: ?Taras Redman MD (Doc tor) Referring MD: ? Medicines: ?Midazo lambert 1 mg IV, Fentanyl 50 micrograms IV Complications: ?No immediate complications. Procedure: [...] were verified by the physician ?in the pre-procedure area. Mental Status ?E xamination: alert and oriented. Airway ?Examination: normal oropharyngeal airway and neck ?mobility. Respiratory Examination: clear to ?auscultation. CV Examination: normal. Prophylactic ?Antibiotics: The patient does not require ?prophylactic antibiotics. Prior Anticoagulants: The ?patient has taken no previous anticoagulant or ?antiplatelet agents. ASA Grade Assessment: II - A ?patient with mild systemic disease. After reviewing ?the risks and benefits, the patient was deemed in ?satisfactory condition to undergo the procedure. ?The anesthesia plan was to use moderate sedation / ?analgesia (conscious sedation). Immediately prior ?to administration of medications, the patient was ?re-assessed for adequacy to receive sedatives. The ?heart rate, respiratory rate, oxygen saturations, ?blood pressure, adequacy of pulmonary ventilation, ?and response to care were monitored throughout the ?procedure. The physical status of the patient was ?re-assessed after the procedure. ?After obtaining informed consent, the colonoscope ?was passed under direct vision. Throughout the ?procedure, the patient's blood pressure, pulse, and ?oxygen saturations were monitored continuously. The ?[employer] Adult Colonoscope, Model # [id number], ?[place] # 222, SN # [id number] was introduced through ?the anus and advanced to the ileocolonic ?anastomosis. The colonoscopy was performed without ?difficulty. The patient tolerated the procedure ?well. The quality of the bowel preparation was good. ? Findings: ? The perianal and digital rectal examinations were nor mal. ? There was evidence of a prior end-to-end ileo-colonic anastomosis in the ? proximal transverse colon. This was patent and was ch aracterized by ? inflammation. The anastomosis was traversed. Biopsies were taken with a ? cold forceps for histology. Verification of patient identification for ? the specimen was done. Estimated blood loss was minim al. ? A patchy area of mucosa at the ileal surgical anast omosis was mildly ? ulcerated. Biopsies were taken with a cold forceps fo r histology. ? Verification of patient identification for the specim en was done. ? Estimated blood loss was minimal. ? A few small and large-mouthed diverticula were found in the sigmoid ? colon. ? The exam was otherwise without abnormality on d irect and retroflexion ? views. ? Impression: ? - Paten t end-to-end ileo-colonic anastomosis, ?characterized by inflammation. Biopsied. ?- Ulcerated mucosa at the ileal surgical ?anastomosis. Biopsied . ?- Diverti culosis in the sigmoid colon. ?- The examination was otherwise normal on direct ?and retroflexion view s. Recommendation: ? - Await pathology results. ?- Repeat colonoscopy in 5 years for surveillance. ? Procedure Code(s): ? --- Professional --- ? 36040, Colonoscopy, flexible; with biopsy, single or multiple Diagnosis Code(s): ? --- Professional --- ? Z98.0, Intestinal bypass and anastomosis status ? K63.3, Ulcer of intestine ? Z86.010, Personal history of colonic polyps CPT copyright 2019 [employer]. All rights reserved. The codes documented in this report are prelimin hallie and upon type copy examiner review may be revised to meet current compliance requirements. Electronically signed by Taras Redman MD Taras Redman MD 07/13/2021 9:32:26 AM I was physically present for the entire viewing portion of t he exam. Taras Redman MD Number of Addenda: 0 Note Initiated On: 07/13/2021 8:56 AM MRN: ?[id number] Procedure Date: ? 07/13/2021 8:56:33 AM Scope Withdrawal Time: 0 hours 6 minutes 7 seconds Total Procedure Duration: 0 hours 11 minutes 27 seconds Estimated Blood Loss: ? Scope In: 9:10:31 AM Scope Out: 9:21:58 AM Specimen (Source) Anatomical Collection Method Collection Time Re ceived Time Location / / Volume Laterality 07/13/2021 8:56 AM CDT Taras Redman MD PROCEDURES Performing Organization Address City/State/ZIP Code Phon e Number RADIOLOGY RESULTS documented in this encounter Visit Diagnoses Not on filedocumented in this encounter Administered Medications Inactive Administered Medications - up to 3 most recent administrations Medication Order MAR Action Action Date Dose Rate Site 0.9% sodium chloride BOLUS Intravenous, 500 mL, ONCE PRN, at 500 mL/hr, Administe r over 1 Hours, other, hypotension, Starting on Mon07/13/21 at 0810, For 1 do se, Intra-procedure atropine injection 0.4 mg 0.4 mg, Intravenous, ONCE PRN, Bradycard ia, Starting on Mon07/13/21 at 0810, For 1 dose, Intra-procedure benzocaine 20% (HURRICAINE/TOPEX) 20 % s pray 0.5-2 mL 0.5-2 mL (1-4 spray), Mouth/Throat, ONCE PRN, moderate pain, Starting on Mon07/13/21 at 0810, For 1 dose, [place] throat with 1-4 spr ays 5 minutes prior to procedure., Intra-procedure EPINEPHrine PF (ADRENALIN) injection 0.1 mg 0.1 mg, Submucosal, ONCE PRN, bleeding, Starting on 07/13/21 at 0810, For 1 dose, Via sclerotherapy injection needle. Not for dire ct undiluted intravenous injection. (1 mg/mL = 1:1,000 concentrat ion). Protect from light., Intra-procedure fentaNYL (PF) (SUBLIMAZE) injection 25 m cg 25 mcg, Intravenous, EVERY 2 MIN PRN, moderate to minh re pain, when verbally ordered by the prescriber during the procedure, Admini ster over 1-2 Minutes, Starting on Mon07/13/21 at 0830, For 24 hours, Caution: may have synergistic effect when used with midazolam (VERSED) . If inadequate resp onse, may repeat up to maximum of 150 mcg total dose). Doses can be exceeded under direct oversight of patient by provider. For ordered IV dose s 1-100 mcg give IV Push undiluted over a minimum of 3-5 minutes., Intra-procedure fentaNYL (PF) (SUBLIMAZE) injection 25-5 0 mcg Given 07/13/2021 9:09 AM CDT 50 mcg 25-50 mcg, Intravenous, ONCE WITHIN 24 HRS, Administer over 1-2 Minutes, On Mon07/13/21 at 0830, For 1 dose, Caution: may have synergistic effect when used with midazolam (VERSED). If inadequate response, may repeat 25 mcg IV slowly Q 2 minutes PRN pain (Maximum of 150 mcg total dose). Doses can be exceeded under direct oversight of patient by provider. For ordered IV doses 1-100 mcg give IV Push undiluted over a minimum of 3-5 minutes., Intra-procedure flumazenil (ROMAZICON) injection 0.2 mg 0.2 mg, Intravenous, EVERY 1 MIN PRN, be nzodiazepine reversal, over sedation, when verbally ordered by the prescriber during the procedur e , Administer over 1 Minutes, Starting on Mon07/13/21 at 0810 , For 48 hours, Give over 15 seconds. If inadequate response after 45 seconds, ma y repeat up to a MAX total dose of 1 mg). Continue monitoring until discharge criteria are met f or a minimum of 2 hours. Irritant. For ordered IV doses 0.1-1 mg, give IV Push undiluted. Administer each 0.2mg over 15 seconds. Use with caution in patients on benzodiazepine therapy., Intra-procedure flumazenil (ROMAZICON) injection 0.2 mg 0.2 mg, Intravenous, EVERY 1 MIN PRN, benzodiazepine r eversal, over sedation, Administer over 1 Minutes, Starting on T 07/13/21 at 0931, For 12 hours, Give over 15 seconds. If inadequate response after 45 seconds, may repeat up to a MAX total dose of 1 mg. Continue monitoring until discharge criteria are met for a minimum of 2 hours Irritant. For ordered IV doses 0 .1-1 mg, give IV Push undiluted. Administer each 0.2mg over 15 seconds. Use with cau tion in patients on benzodiazepine therapy. glucagon injection 0.5 mg 0.5 mg, Intravenous, ONCE PRN, other, gi motility, Starting on Mon07/13/21 at 0810, For 1 dose, If ordered IV, give IV Push over 1 minute. Reconstitute with 1mL sterile water., Intra-procedure lidocaine (LMX4) kit Topical, EVERY 1 HOUR PRN, pain, with VAD insertion, S tarting on Mon07/13/21 at 0824, Apply at least 30 minutes prior to VAD insertion in divided doses as needed for size of site for insertion. MAX Dose: 2.5 g (?? of 5 g tube) Do NOT give if patient has a history of allergy to any local anesthetic or any taco product. Do NOT use both lidocaine intradermal/subcu taneous injection and the lidocaine cream on the same site., Pre-procedure lidocaine 1 % 0.1-1 mL 0.1-1 mL, Other, EVERY 1 HOUR PRN, mild pain with VAD insertion, Starting on Mon07/13/21 at 0824, MAX dose 1 mL subcutane ous OR intradermal along the side of the vein in divided doses as needed for VAD insertion. Do NOT give if patient has a history of allergy to any local anesthet ic or any taco product. Do NOT use both lidocaine intradermal/subcutaneous injec tion and the lidocaine cream on the same site., Pre-procedure midazolam (VERSED) injection 0.5 mg 0.5 mg, Intravenous, Administer over 1-2 Minutes, EVERY 2 MIN PRN, sedation, when verbally ordered by the prescriber elyssa abad the procedure, Starting on Mon07/13/21 at 0830, For 24 hours, Caution: when used with opioids, m ay need lower doses. If inadequate response, may repeat until de sired sedative response (Maximum of 5 mg total dose). Doses can be exceeded under direct oversight of patient by provider. This drug may cause significant respirat ory depression. Monitor respiratory status and vital signs carefully for 1 hour after each dose., Intra-procedure midazolam (VERSED) injection 0.5-1 mg Given 07/13/2021 9:09 AM CDT 1 mg 0.5-1 mg, Intravenous, Administer over 1-2 Minutes, ONCE WITHIN 24 HRS, On Mon07/13/21 at 0830, For 1 dose, Caution: when used with opioids, may need lower doses. If inadequate response may repeat 0.5 mg IV slowly Q 2 minutes PRN sedation until desired response (Maximum of 5 mg total dose). Doses can be exceeded under direct oversight of patient by provider. This drug may cause significant respiratory depression. Monitor respiratory status and vital signs carefully for 1 hour after each dose., Intra-procedure naloxone (NARCAN) injection 0.2 mg 0.2 mg, Intravenous, EVERY 2 MIN PRN, op ioid reversal, Starting on Mon07/13/21 at 0931, Administer intravenous route when available and notify provider when administered. For unintended sedation or respiratory depression if all of the below criteria are met: ~ respiratory rate LES S than or EQUAL to 8. ~SaO2 less than 92% and or/end-tidal CO2 is greater than 50. ~ the patient is receiving an opioid, has unintended sedations assessed as RASS (-3), and is cur rently not on mechanical ventilation. RASS scale moderate (-3) is movement or eye opening to voice but no eye contact. Patient Monitoring Once the patient has demonstrated a response to the naloxone, continue to monitor respiratory rate, depth, oxygen saturation and end-tidal CO2 (if available) every 15 mi nutes x 2, then every 30 minutes x 2, then every 1 hour x 1 after each naloxone dose. Consider tr ansfer to ICU if patient respiratory parameters have not improved after 4 nalox one doses. For ordered IV doses 0.1-2mg give IVP. Give each 0.4mg over 15 seconds in emergency situations. For non-emergent situations further dilu te in 9mL of NS to facilitate titration of response. naloxone (NARCAN) injection 0.2 mg 0.2 mg, Intramuscular, EVERY 2 MIN PRN, opioid reversal, Starting on Mon07/13/21 at 0931, Administer intramuscular if an int ravenous route is not available and notify provider when administered. For unintend ed sedation or respiratory depression if all of the below criteria are met: ~ respiratory rate LESS than or EQUAL to 8. ~SaO2 less than 92% and or/end-tidal CO2 is greater th an 50. ~ the patient is receiving an opioid, has unintended sedations assessed as RASS (-3), and is currently not on mechanical ventilation. RASS scale moderate (-3) is movement or eye opening to voice but no eye contact. Patient Monitoring Once the patient has demonstrated a response to the naloxone, continue to m onitor respiratory rate, depth, oxygen saturation and end-tidal CO2 (if availab le) every 15 minutes x 2, then every 30 minutes x 2, then every 1 hour x 1 after each naloxone dose. Consider transfer to ICU if patient respiratory parameters have not improved after 4 naloxone doses. For ordered IV doses 0.1-2mg give IVP. Give each 0.4mg over 15 seconds in emergency situations. For non -emergent situations further dilute in 9mL of NS to facilitate titration of response. naloxone (NARCAN) injection 0.4 mg 0.4 mg, Intravenous, EVERY 2 MIN PRN, op ioid reversal, Starting on Mon07/13/21 at 0931, Administer intravenous route when available and notify provider when administered. For unintended sedation or respiratory depression if all of the below criteria are met: ~ respiratory rate LES S than or EQUAL to 8. ~ SaO2 less than 92% and or/end-tidal CO2 is greater than 50. ~ the patient is receiving an opioid, has unintended sedation assessed as RASS (-4 ) or (-5) and patient is currently not on mechanical ventilation. RASS scale (-4) is deep sedation with no response to voice but movement or eye opening to physical stimulation. R ASS scale (-5) is unarousable. Patient Monitoring Once the patient has demonstrated a response to the naloxone, continue to monitor respiratory rate, depth, oxygen saturation and end-tidal CO2 (if available) every 15 mi nutes x 2, then every 30 minutes x 2, then every 1 hour x 1 after each naloxone dose. Consider tr ansfer to ICU if patient respiratory parameters have not improved after 4 nalox one doses. For ordered IV doses 0.1-2mg give IVP. Give each 0.4mg over 15 seconds in emergency situations. For non-emergent situations further dilu te in 9mL of NS to facilitate titration of response. naloxone (NARCAN) injection 0.4 mg 0.4 mg, Intramuscular, EVERY 2 MIN PRN, opioid reversal, Starting on Mon07/13/21 at 0931, Administer intramuscular if an int ravenous route is not available and notify provider when administered. For unintend ed sedation or respiratory depression if all of the below criteria are met: ~ res piratory rate LESS than or EQUAL to 8. ~ SaO2 less than 92% and or/end-tidal CO2 is greater billy n 50. ~ the patient is receiving an opioid, has unintended sedation assessed as RASS (-4) or (-5) and patient is currently not on mechanical ventilation. RA SS scale (-4) is deep sedation with no response to voice but movement or eye opening to physical stimulation. RASS scale (-5) is unarousa ble. Patient Monitoring Once the patient has demonstrated a response to the nalox one, continue to monitor respiratory rate, depth, oxygen saturation and end-tidal CO2 (if availab le) every 15 minutes x 2, then every 30 minutes x 2, then every 1 hour x 1 after each naloxone dose. Consider transfer to ICU if patient respiratory parameters have not improved after 4 naloxone doses. For ordered IV doses 0.1-2mg give IVP. Give each 0.4mg over 15 seconds in emergency situations. For non -emergent situations further dilute in 9mL of NS to facilitate titration of response. ondansetron (ZOFRAN) injection 4 mg 4 mg, Intravenous, ONCE PRN, nausea, vomiting, Adminis ter over 2-5 Minutes, Starting on Mon07/13/21 at 0824, For 1 d ose, Give in ENDO pre procedure prep area. Irritant. For ordered IV doses 0.1-4 mg, give IV Push undiluted over 2-5 minutes., Pre-procedure ondansetron (ZOFRAN) injection 4 mg 4 mg, Intravenous, EVERY 6 HOURS PRN, nausea, vomiting , Administer over 2-5 Minutes, Starting on Mon07/13/21 at 0931, This is Step 1 of nausea and vomiting management. If nausea not resolved in 15 minutes, go t o Step 2 prochlorperazine (COMPAZINE). Irritant. For ordered IV do ses 0.1-4 mg, give IV Push undiluted over 2-5 minutes. ondansetron (ZOFRAN-ODT) ODT tab 4 mg 4 mg, Oral, EVERY 6 HOURS PRN, nausea, v omiting, Starting on Mon07/13/21 at 0931, This is Step 1 of nausea and vomiting management. If n ausea not resolved in 15 minutes, go to Step 2 prochlorperazine (COMPAZINE). Do not push through foil backing. Peel back foil and gently remove. Place on to ngue immediately. Administration with liquid unnecessary W ith dry hands, peel back foil backing and gently remove tablet. Do not push oral d isintegrating tablet through foil backing. Administer immediately on tongue and oral disintegrati ng tablet dissolves in seconds, then swallow with saliva. Liquid not required . prochlorperazine (COMPAZINE) injection 5 mg 5 mg, Intravenous, EVERY 6 HOURS PRN, nausea, vomiting , Administer over 1-2 Minutes, Starting on Mon07/13/21 at 0931, This is Step 2 of nausea and vomiting management. If nausea not resolved in 15 -30 minutes, Notify provider. For ordered IV doses 0.1-10 mg, give IV push undiluted, each 5 mg over 1 minute. prochlorperazine (COMPAZINE) tablet 5 mg 5 mg, Oral, EVERY 6 HOURS PRN, nausea, v omiting, Starting on Mon07/13/21 at 0931, This is Step 2 of nausea and vomiting ma nagement. If nausea not resolved in 15-30 minutes, Notify provider. simethicone (MYLICON) suspension 133 mg 133 mg, Oral, ONCE PRN, other, gas bubbl es, Starting on Mon07/13/21 at 0810, For 1 dose, Give via endoscope, Intra-procedure sodium chloride (PF) 0.9% PF flush 3 mL 3 mL, Intracatheter, EVERY 8 HOURS, First dose on Mon07/13/21 at 0830, to lock peripheral IV dormant line, Pre-procedure sodium chloride (PF) 0.9% PF flush 3 mL Given 07/13/2021 9:10 AM CDT 3 mLs 3 mL, Intracatheter, EVERY 1 MIN PRN, line flush, other, to ensure patency or to lock dormant line, Starting on Mon07/13/21 at 0824, Pre-procedure documented in this encounter Active and Recently Administered Medications Times are shown in CDT. Scheduled Medication Order 07/11/2021 07/12/2021 07/13/2021 fentaNYL (PF) (SUBLIMAZE) injection 25-50 mcg (COMPLETED) 908 (Given - Provider: Mercedes Hernandez RN) 25-50 mcg, Intravenous, ONCE WITHIN 24 H RS, Administer over 1-2 Minutes, On Mon07/13/21 at 0830, For 1 dose, Caution: may have synergistic effect when used with midazolam (VERSED). If inadequate respons e, may repeat 25 mcg IV slowly Q 2 minut es PRN pain (Maximum of 150 mcg total dose). Doses can be exceeded under direct oversight of patient by provider. For ordered IV doses 1-100 mcg give IV Push undi luted over a minimum of 3-5 minutes., Intra-procedure midazolam (VERSED) injection 0.5-1 mg (COMPLETED) 908 (Given - Provider: Mercedes Hernandez RN) 0.5-1 mg, Intravenous, Administer over 1 -2 Minutes, ONCE WITHIN 24 HRS, On Mon07/13/21 at 0830, For 1 dose, Caution: when used with opioids, may need lower doses. If inadequate response may repeat 0.5 m g IV slowly Q 2 minutes PRN sedation unt il desired response (Maximum of 5 mg total dose). Doses can be exceeded under direct oversight of patient by provider. This drug may cause significant respiratory depression. Monitor respiratory status and vital signs carefully for 1 hour after each dose., Intra-procedure sodium chloride (PF) 0.9% PF flush 3 mL 0830 (Canceled Entry - Provider: Orders Generic Provider - Comment: Automatically canceled at discontinue of medication order) 3 mL, Intracatheter, EVERY 8 HOURS, Firs t dose on Mon07/13/21 at 0830, to lock peripheral IV dormant line, Pre-procedure PRN Medication Order 07/11/2021 07/12/2021 07/13/2021 0.9% sodium chloride BOLUS Intravenous, 500 mL, ONCE PRN, at 500 mL /hr, Administer over 1 Hours, other, hypotension, Starting on Mon07/13/21 at 0810, For 1 dose, Intra-procedure atropine injection 0.4 mg 0.4 mg, Intravenous, ONCE PRN, Bradycard ia, Starting on Mon07/13/21 at 0810, For 1 dose, Intra-procedure benzocaine 20% (HURRICAINE/TOPEX) 20 % spray 0.5-2 mL 0.5-2 mL (1-4 spray), Mouth/Throat, ONCE PRN, moderate pain, Starting on Mon07/13/21 at 0810, For 1 dose, [place] throat with 1-4 sprays 5 minutes prior to procedure., Intra-procedure EPINEPHrine PF (ADRENALIN) injection 0.1 mg 0.1 mg, Submucosal, ONCE PRN, bleeding, Starting on Mon07/13/21 at 0810, For 1 dose, Via sclerotherapy injection needle. Not for direct undiluted intravenous injection. (1 mg/mL = 1:1,000 concentration). Protect from light., Intra-procedure fentaNYL (PF) (SUBLIMAZE) injection 25 mcg 25 mcg, Intravenous, EVERY 2 MIN PRN, mo derate to severe pain, when verbally ordered by the prescriber during the procedure, Administer over 1-2 Minutes, Starting on Mon07/13/21 at 0830, For 24 hours, C aution: may have synergistic effect when used with midazolam (VERSED) . If inadequate response, may repeat up to maximum of 150 mcg total dose). Doses can be exceeded under direct oversight of patient b y provider. For ordered IV doses 1-100 m cg give IV Push undiluted over a minimum of 3-5 minutes., Intra-procedure flumazenil (ROMAZICON) injection 0.2 mg 0.2 mg, Intravenous, EVERY 1 MIN PRN, be nzodiazepine reversal, over sedation, when verbally ordered by the prescriber during the procedure , Administer over 1 Minutes, Starting on Mon07/13/21 at 0810, F or 48 hours, Give over 15 seconds. If in adequate response after 45 seconds, may repeat up to a MAX total dose of 1 mg). Continue monitoring until discharge criteria are met for a minimum of 2 hours. Irr itant. For ordered IV doses 0.1-1 mg, gi ve IV Push undiluted. Administer each 0.2mg over 15 seconds. Use with caution in patients on benzodiazepine therapy., Intra-procedure flumazenil (ROMAZICON) injection 0.2 mg 0.2 mg, Intravenous, EVERY 1 MIN PRN, be nzodiazepine reversal, over sedation, Administer over 1 Minutes, Starting on Mon07/13/21 at 0931, For 12 hours, Give over 15 seconds. If inadequate response after 45 seconds, may repeat up to a MAX tota l dose of 1 mg. Continue monitoring until discharge criteria are met for a minimum of 2 hours Irritant. For ordered IV doses 0.1-1 mg, give IV Push undiluted. Adm inister each 0.2mg over 15 seconds. Use with caution in patients on benzodiazepine therapy. glucagon injection 0.5 mg 0.5 mg, Intravenous, ONCE PRN, other, gi motility, Starting on Mon07/13/21 at 0810, For 1 dose, If ordered IV, give IV Push over 1 minute. Reconstitute with 1mL sterile water., Intra-procedure lidocaine (LMX4) kit Topical, EVERY 1 HOUR PRN, pain, with VA D insertion, Starting on Mon07/13/21 at 0824, Apply at least 30 minutes prior to VAD insertion in divided doses as needed for size of site for insertion. MAX Dose : 2.5 g (?? of 5 g tube) Do NOT give if patient has a history of allergy to any local anesthetic or any taco product. Do NOT use both lidocaine intradermal/subcutaneous injection and the lidocaine cream on the same site., Pre-procedure lidocaine 1 % 0.1-1 mL 0.1-1 mL, Other, EVERY 1 HOUR PRN, mild pain with VAD insertion, Starting on Mon07/13/21 at 0824, MAX dose 1 mL subcutaneous OR intradermal along the side of the vein in divided doses as needed for VAD insertion. Do NOT give if patient has a history of allergy to any local anesthetic or any taco product. Do NOT use both lidocaine intradermal/subcutaneous injection and the lidocaine cream on the same site., Pre-procedure midazolam (VERSED) injection 0.5 mg 0.5 mg, Intravenous, Administer over 1-2 Minutes, EVERY 2 MIN PRN, sedation, when verbally ordered by the prescriber during the procedure, Starting on Mon07/13/21 at 0830, For 24 hours, Caution: when us ed with opioids, may need lower doses. I f inadequate response, may repeat until desired sedative response (Maximum of 5 mg total dose). Doses can be exceeded under direct oversight of patient by provide r. This drug may cause significant respi ratory depression. Monitor respiratory status and vital signs carefully for 1 hour after each dose., Intra-procedure naloxone (NARCAN) injection 0.2 mg 0.2 mg, Intravenous, EVERY 2 MIN PRN, op ioid reversal, Starting on Mon07/13/21 at 0931, Administer intravenous route when available and notify provider when administered. For unintended sedation or resp iratory depression if all of the below c riteria are met: ~ respiratory rate LESS than or EQUAL to 8. ~SaO2 less than 92% and or/end-tidal CO2 is greater than 50. ~ the patient is receiving an opioid, beltrán s unintended sedations assessed as RASS (-3), and is currently not on mechanical ventilation. RASS scale moderate (-3) is movement or eye opening to voice but no eye contact. Patient Monitoring Once the patient has demonstrated a response to the naloxone, continue to monitor respiratory rate, depth, oxygen saturation and end-tidal CO2 (if available) every 15 minutes x 2, then every 30 minutes x 2, the n every 1 hour x 1 after each naloxone d ose. Consider transfer to ICU if patient respiratory parameters have not improved after 4 naloxone doses. For ordered IV doses 0.1-2mg give IVP. Give each 0.4mg o christy 15 seconds in emergency situations. For non-emergent situations further dilute in 9mL of NS to facilitate titration of response. naloxone (NARCAN) injection 0.2 mg 0.2 mg, Intramuscular, EVERY 2 MIN PRN, opioid reversal, Starting on Mon07/13/21 at 0931, Administer intramuscular if an intravenous route is not available and notify provider when administered. For uni ntended sedation or respiratory depressi on if all of the below criteria are met: ~ respiratory rate LESS than or EQUAL to 8. ~SaO2 less than 92% and or/end- tidal CO2 is greater than 50. ~ the patient is receiving an opioid, has unintended sed ations assessed as RASS (-3), and is currently not on mechanical ventilation. RASS scale moderate (-3) is movement or eye opening to voice but no eye contact. Pat ient Monitoring Once the patient has dem onstrated a response to the naloxone, continue to monitor respiratory rate, depth, oxygen saturation and end-tidal CO2 (if available) every 15 minutes x 2, then e very 30 minutes x 2, then every 1 hour x 1 after each naloxone dose. Consider transfer to ICU if patient respiratory parameters have not improved after 4 naloxone doses. For ordered IV doses 0.1-2mg giv e IVP. Give each 0.4mg over 15 seconds i n emergency situations. For non-emergent situations further dilute in 9mL of NS to facilitate titration of response. naloxone (NARCAN) injection 0.4 mg 0.4 mg, Intravenous, EVERY 2 MIN PRN, op ioid reversal, Starting on Mon07/13/21 at 0931, Administer intravenous route when available and notify provider when administered. For unintended sedation or resp iratory depression if all of the below c riteria are met: ~ respiratory rate LESS than or EQUAL to 8. ~ SaO2 less than 92% and or/end-tidal CO2 is greater than 50. ~ the patient is receiving an opioid, h as unintended sedation assessed as RASS (-4) or (-5) and patient is currently not on mechanical ventilation. RASS scale (-4) is deep sedation with no response to voice but movement or eye opening to phy sical stimulation. RASS scale (-5) is un arousable. Patient Monitoring Once the patient has demonstrated a response to the naloxone, continue to monitor respiratory rate, depth, oxygen saturation and end -tidal CO2 (if available) every 15 minut es x 2, then every 30 minutes x 2, then every 1 hour x 1 after each naloxone dose. Consider transfer to ICU if patient respiratory parameters have not improved af ter 4 naloxone doses. For ordered IV dos es 0.1-2mg give IVP. Give each 0.4mg over 15 seconds in emergency situations. For non-emergent situations further dilute in 9mL of NS to facilitate titration of response. naloxone (NARCAN) injection 0.4 mg 0.4 mg, Intramuscular, EVERY 2 MIN PRN, opioid reversal, Starting on Mon07/13/21 at 0931, Administer intramuscular if an intravenous route is not available and notify provider when administered. For uni ntended sedation or respiratory depressi on if all of the below criteria are met: ~ respiratory rate LESS than or EQUAL to 8. ~ SaO2 less than 92% and or/end- tidal CO2 is greater than 50. ~ the patient i s receiving an opioid, has unintended se dation assessed as RASS (-4) or (-5) and patient is currently not on mechanical ventilation. RASS scale (-4) is deep sedation with no response to voice but moveme nt or eye opening to physical stimulatio n. RASS scale (-5) is unarousable. Patient Monitoring Once the patient has demonstrated a response to the naloxone, continue to monitor respiratory rate, depth, o xygen saturation and end-tidal CO2 (if a vailable) every 15 minutes x 2, then every 30 minutes x 2, then every 1 hour x 1 after each naloxone dose. Consider transfer to ICU if patient respiratory paramet ers have not improved after 4 naloxone d oses. For ordered IV doses 0.1-2mg give IVP. Give each 0.4mg over 15 seconds in emergency situations. For non-emergent situations further dilute in 9mL of NS to facilitate titration of response. ondansetron (ZOFRAN) injection 4 mg 4 mg, Intravenous, ONCE PRN, nausea, vom iting, Administer over 2-5 Minutes, Starting on Mon07/13/21 at 0824, For 1 dose, Give in ENDO pre procedure prep area. Irritant. For ordered IV doses 0.1-4 mg, gi ve IV Push undiluted over 2-5 minutes., Pre-procedure ondansetron (ZOFRAN) injection 4 mg(Linked Group 1) 4 mg, Intravenous, EVERY 6 HOURS PRN, na usea, vomiting, Administer over 2-5 Minutes, Starting on Mon07/13/21 at 0931, This is Step 1 of nausea and vomiting management. If nausea not resolved in 15 minut es, go to Step 2 prochlorperazine (BARBARA ZINE). Irritant. For ordered IV doses 0.1-4 mg, give IV Push undiluted over 2-5 minutes. ondansetron (ZOFRAN-ODT) ODT tab 4 mg(Linked Group 1) 4 mg, Oral, EVERY 6 HOURS PRN, nausea, v omiting, Starting on Mon07/13/21 at 0931, This is Step 1 of nausea and vomiting management. If nausea not resolved in 15 minutes, go to Step 2 prochlorperazine (C OMPAZINE). Do not push through foil back ing. Peel back foil and gently remove. Place on tongue immediately. Administration with liquid unnecessary With dry hands, peel back foil backing and gently remov e tablet. Do not push oral disintegratin g tablet through foil backing. Administer immediately on tongue and oral disintegrating tablet dissolves in seconds, then swallow with saliva. Liquid not required. prochlorperazine (COMPAZINE) injection 5 mg(Linked Group 2) 5 mg, Intravenous, EVERY 6 HOURS PRN, na usea, vomiting, Administer over 1-2 Minutes, Starting on Mon07/13/21 at 0931, This is Step 2 of nausea and vomiting management. If nausea not resolved in 15-30 mi nutes, Notify provider. For ordered IV d oses 0.1-10 mg, give IV push undiluted, each 5 mg over 1 minute. prochlorperazine (COMPAZINE) tablet 5 mg(Linked Group 2) 5 mg, Oral, EVERY 6 HOURS PRN, nausea, v omiting, Starting on Mon07/13/21 at 0931, This is Step 2 of nausea and vomiting management. If nausea not resolved in 15-30 minutes, Notify provider. simethicone (MYLICON) suspension 133 mg 133 mg, Oral, ONCE PRN, other, gas bubbl es, Starting on Mon07/13/21 at 0810, For 1 dose, Give via endoscope, Intra-procedure sodium chloride (PF) 0.9% PF flush 3 mL 0910 (Given - Provider: Mercedes Hernandez, RN) 3 mL, Intracatheter, EVERY 1 MIN PRN, li ne flush, other, to ensure patency or to lock dormant line, Starting on Mon07/13/21 at 0824, Pre-procedure Linked Groups Order Group 1: ondansetron (ZOFRAN-ODT) ODT tab 4 mgJump to med 4 mg, Oral, EVERY 6 HOURS PRN, nausea, v omiting, Starting on Mon07/13/21 at 0931
This is Step 1 of nausea and vomiting management. If nausea not resolved in 15 minutes, go to Step 2 prochlorperazine (COMPAZINE). Do not push through foil backing. Peel back foil and gently remove. Place on tongue immediately. Administration with liquid unnecessary With dry hands, pee l back foil backing and gently remove ta blet. Do not push oral disintegrating tablet through foil backing. Administer immediately on tongue and oral disintegrating tablet dissolves in seconds, then swallow with saliva. Liquid not required.
Or ondansetron (ZOFRAN) injection 4 mgJump to med 4 mg, Intravenous, EVERY 6 HOURS PRN, na usea, vomiting, Administer over 2-5 Minutes, Starting on Mon07/13/21 at 0931
This is Step 1 of nausea and vomiting management. If naus ea not resolved in 15 minutes, go to José Miguel p 2 prochlorperazine (COMPAZINE). Irritant. For ordered IV doses 0.1-4 mg, give IV Push undiluted over 2-5 minutes.
Group 2: prochlorperazine (COMPAZINE) injection 5 mgJump to med 5 mg, Intravenous, EVERY 6 HOURS PRN, na usea, vomiting, Administer over 1-2 Minutes, Starting on Mon07/13/21 at 0931
This is Step 2 of nausea and vomiting management. If nausea not re solved in 15-30 minutes, Notify provider . For ordered IV doses 0.1-10 mg, give IV push undiluted, each 5 mg over 1 minute.
Or prochlorperazine (COMPAZINE) tablet 5 mgJump to med 5 mg, Oral, EVERY 6 HOURS PRN, nausea, v omiting, Starting on Mon07/13/21 at 0931
This is Step 2 of nausea and vomiting management. If nausea not resolved in 15-30 minutes, Notify provider.
documented in this encounter Care Teams Purse Seiner Relationship Specialty Start Date End Date Tena Romero PA-C PCP - General 06/16/21 [facility] [address] [place] [id number] Clinic, [facility] 06/01/[address] [place] [address] [place], [place] [id number] documented as of this encounter
--- OUTSIDE RECORDS SUMMARY | 2022-08-04 08:05 | XMS_ITS | Encounter Summary ---
:1950 Author Organization [facility] Address [address] [place] [address]. [place] [address] Care Team Providers Name Role Phone Clinic, [facility], [facility] Unavailable Tena Romero PA-C Primary Care Provider Encounter Details Date Type Department Care Team Description 07/09/2021 Lab [facility] Taras Redman, Encounter for screening [facility] for other viral diseases [address] [place], [place] [phone] GASTROINTESTINAL [phone] [place] [id number] (Wo rk) Social History Tobacco Use Types [...] been in contact with No / Unsure 07/09/2021 9:49 AM CDT someone who was confirmed or suspected to have Coronavirus / COVID-19? documented as of this encounter Plan of Treatment Not on filedocumented as of this encounter Procedures Procedure Name Priority Date/Time Associated Diagnosis Comme nts COVID-19 VIRUS Routine 07/09/2021 9:58 AM Encounter for Result s for this (CORONAVIRUS) BY CDT screening for other proc edure are in PCR viral diseases the results section. documented in this encounter Results Asymptomatic COVID-19 Virus (Coronavirus) by PCR Nasopharyngeal (07/09/2021 9:58 AM CDT) Analysis Performed At Patho logist Time Signature SARS CoV2 PCR Negative Negative [...] the kristine SARS-CoV-2 assay on the kristine Spectafy0 System. This test should be ordered for [...] This waldemar t was validated by the [facility]ious [facility] Di[facility] nostic Laboratory. This laboratory is certified under the Clinic al Laboratory Improvement Amendments of 1988 (CLIA-88) as qualifie d to perform high and/or moderate complexity laboratory testing. Taras Redman MD LAB - MICRO GENERAL ORDERABL ES Performing Organization Address City/State/ZIP Code Phon e Number [facility] [place] [id number] Diag. Lab [address] [place], [address] [facility] Infectious [place], [place] [phone] Diseases Diagnostic [id number], [place] Lab ([facility]) [address] [facility], [address] documented in this encounter Visit Diagnoses Diagnosis Encounter for screening for other viral diseases documented in this encounter Care Teams Shoe Repairman Relationship Specialty Start Date End Date Tena Romero PA-C PCP - General 06/16/21 [facility] [address] [place] [address] [facility] 06/01/[address] [place] [id number] documented as of this encounter
--- OUTSIDE RECORDS SUMMARY | 2022-08-04 08:05 | XMS_ITS | Clinical Summary ---
:1950 Author Organization [place] Address [address] [place] [address]. [place] [address] Care Team Providers Name Role Phone Clinic, [facility] Unavailable Tena Romero PA-C Primary Care Provider Allergies Active Allergy Reactions Severity Noted Date Comments Demerol Nausea and Vomiting 06/05/2012 Medications Medication Sig Dispensed Refills Start Date End Date Status SIMVASTATIN PO Take by mouth. 0 Active Multiple Vitamin Take 1 tablet by 0 Active (MULTI-VITAMIN) per mouth daily. tablet psyllium 0.52 GM Take 1 capsule by 0 Active capsule mouth daily. ASPIRIN PO Take 81 mg by 0 Activ e mouth daily calcium carbonate Take 2 tablets by 0 Active (OS-GRABIEL 500 MG NIKOLSKI. mouth daily CA) 1250 MG tablet Family History Medical History Relation Comments Other Cancer Father stomach/small bowel, not sure. Colon Cancer Nephew Relation Status Comments Father Nephew Social History Tobacco Use Types Packs/Day Years [...] Assigned at Date Recorded Not on file Last Filed Vital Signs Vital Sign Reading [...] Mass Index 23.66 07/13/2021 8:33 AM CDT Plan of Treatment Health Maintenance Due Date Last Done Comments ADVANCE CARE PLANNING 1950 ANNUAL REVIEW OF HM ORDERS 1950 CT COLONOGRAPHY 1950 DEXA 1950 FIT-DNA (Cologuard) 1950 FIT 1950 FLEX SIG 1950 COVID-19 Vaccine (#1) 1950 HEPATITIS C SCREENING 1969 DTAP/TDAP/TD IMMUNIZATION 1976 (1 - Tdap) LIPID 1996 MAMMO SCREENING 12/15/2011 12/15/2009, 12/12/2008, 11/27/2007, Additional history exists FALL RISK ASSESSMENT 2016 MEDICARE ANNUAL WELLNESS 2016 VISIT PHQ-2 (once per calendar 11/20/2021 year) INFLUENZA VACCINE (#1) 2022 08/31/2020, 08/06/2019, 08/21/2017, Additional history exists COLONOSCOPY 07/13/2031 07/13/2021, 07/13/2021, 06/21/2017, Additional history exists COLORECTAL CANCER SCREENING 07/13/2031 Pneumococcal Vaccine: 65+ Completed 07/26/2017, 08/22/2016 Years ZOSTER IMMUNIZATION Completed 01/07/2020, 08/14/2019 HEPATITIS B IMMUNIZATION Aged Out No long er eligible based on patient 's age to complete this topic IPV IMMUNIZATION Aged Out No longer eligi ble based on patient 's age to complete this topic MENINGITIS IMMUNIZATION Aged Out No longe r eligible based on patient 's age to complete this topic Insurance Payer Benefit Plan / Subscriber ID Effective Phone Address T ype Group Dates MEDICARE MEDICARE [id number] 2018-Prese [phone] ATTN AMBERI [place] Medicare nt 40 [address] [place] [address] BCBS BCBS OF ID [id number] 2020-Prese [phone] [address] [address] Indemnity nt [address] [place] [address] Care Teams Bait Digger Relationship Specialty Start Date End Date Tena Romero PA-C PCP - General 06/16/21 [facility] [address] [place] [address] [place] [address] Clinic, [facility] 06/01/[address] [place] [address]
--- OUTSIDE RECORDS SUMMARY | 2022-08-04 08:05 | XMS_ITS | Encounter Summary ---
:1950 Author Organization [place] Address [address] [place] [address] Care Team Providers Name Role Phone [facility] Unavailable Tena Romero PA-C Primary Care Provider Encounter Details Date Type Department Care Team Description 07/09/2021 Travel Social History Tobacco Use Types Packs/Day [...] on filedocumented in this encounter Care Teams Team Assistant Relationship Specialty Start Date End Date Tena Romero PA-C PCP - General 06/16/21 [place] [address] [place] [id number] [facility] 06/01/[address] [place] [address] documented as of this encounter
--- OUTSIDE RECORDS SUMMARY | 2022-08-04 08:05 | XMS_ITS | Encounter Summary ---
:1950 Author Organization [place] Address [facility] [place] [address] Care Team Providers Name Role Phone Janice Oreilly MD Primary Care Provider Clinic, [facility] Reason for Visit Auth/Cert Specialty Diagnoses / Procedures Referred By Contact Refer red To Contact Gastroenterology Diagnoses Screening Rh Endoscopy Procedures COLONOSCOPY [address] [place] [address] Phone: Fax: Referral ID Status Reason Start Date Expiration Date Visits Requ ested Visits Authorized [id number] 1 1 Encounter Details Date Type Department Care Team Description 06/21/2017 Surgery [facility] Endoscopy Taras Aragon MD COLONOSCOPY [facility] [address] [place] [address] [place] [address] [place] [address] [phone] (Wo rk) Surgery Details Date/Time Status Location OR Service Patient Class Case Case Trauma Class Type Case? 06/21/17 7:30 Posted GI GI A Gastroenterology Outpatient AM Panel 1 Procedure LRB Anes Op Region Wound Class Commen ts COLONOSCOPY N/A Conscious Sedation Rectum II-Clean Contami nated COLONOSCOPY Surgeon Surgeon Role Service Panel Taras Redman MD Primary Gastroenterology 1 Special Needs Suchmel documented in this encounter Social History Tobacco Use Types Packs/Day Years [...] Sign Reading Time Taken Comments Blood Pressure 154/99 06/21/2017 7:53 AM CDT Pulse - - Temperature - - Respiratory Rate 14 06/21/2017 7:53 AM CDT Oxygen Saturation 93% 06/21/2017 7:53 AM CDT Inhaled Oxygen Concentration - - [...] Take 2 tablets by 0 500 MG KAW. CA) 1250 MG mouth daily tablet Multiple [...] Reported, Patient calcium carbonate (OS-GRABIEL 500 MG KAW. CA) 1250 MG tablet Take 2 tablets [...] encounter Results COLONOSCOPY (06/21/2017 7:18 AM CDT) [facility] Method Time Signature COLONOSCOPY [facility] RAD IOLOGY RESULTS Patient Name: Jeanine Pettit ?Procedure Date: 06/21/2017 7:18 AM ? Accou nt Number: [id number] Date of : 1950 ? Admit Type: [...] and ?oxygen saturations were monitored continuously. The ?Olympus Peds Colonoscope Model #[id number]-H190L, ?Endora#135, SN#[id number] was introduced through the ?anus and advanced [...] history of colonic polyps CPT copyright 2016 [employer] [place] [employer]. All rights reserved. The codes documented in this report are prelimin hallie and upon acid treater review may be revised to meet current compliance requirements. Electronically signed by Taras Redman MD Traas Redman MD 06/21/2017 7:53:09 AM I was physically present for the entire viewing portion of t he exam. Taras Redman MD Number of Addenda: 0 Note Initiated On: 06/21/2017 7:18 AM MRN: ?[id number] Procedure Date: ? 06/21/2017 7:18:53 AM Scope Withdrawal Time: 0 hours 6 minutes 40 seconds Total Procedure Duration: 0 hours 14 minutes 22 seconds Estimated Blood Loss: ? Scope In: 7:33:53 AM Scope Out: 7:48:15 AM Specimen (Source) Anatomical Collection Method Collection Time Re ceived Time Location / / Volume Laterality 06/21/2017 7:18 AM CDT February Fitzloff PROCEDURES Performing Organization Address City/State/ZIP Code Phon [...] 0732, Intra-procedure ondansetron (ZOFRAN) injection 4 mg Given 06/21/2017 7:54 AM CDT 4 mg 4 mg, Intravenous, ONCE PRN, nausea, vomiting, Administer over 2-5 Minutes, Starting on Mon06/21/17 at 0719, For 1 dose, Give in ENDO pre procedure prep area. Irritant., Pre-procedure ondansetron (ZOFRAN) injection 4 mg 4 [...] dure ondansetron (ZOFRAN) injection 4 mg (COMPLETED) 0754 (Given - Provider: Anastasia Dyer RN - [...]
Post-procedure documented in this encounter Care Teams Truck Driver Teamster Relationship Specialty Start Date End Date Janice Oreilly MD PCP - General Family Practice 05/14/14 06/15/21 [place] [address] [place] [address] [facility] 06/01/17 [place] [address] [address] [place], [place] [id number] documented as of this encounter
--- OUTSIDE RECORDS SUMMARY | 2022-08-04 08:05 | XMS_ITS | Encounter Summary ---
:1950 Author Organization [place] Address [address] [place] [address]. [place] [address] Care Team Providers Name Role Phone Clinic, [facility] Tena Romero PA-C Primary Care Provider Reason for Visit Auth/Cert Specialty Diagnoses / Procedures Referred By Contact Refer red To Contact Gastroenterology Diagnoses Screen for colon cancer Screen for colon cancer [Z12.11] Endoscopy Procedures HC COLONOSCOPY W/WO BRUSH/WASH COLONOSCOPY [address] [place] [address] Phone: Fax: Referral ID Status Reason Start Date Expiration Date Visits Requ ested Visits Authorized [id number] 1 1 Encounter Details Date Type Department Care Team Description 07/13/2021 Surgery [facility] Taras Redman, COLO NOSCOPY, WITH Endoscopy Dayanna MILLER BIOPSIES USING BIOPSY [address] [facility] [place] GASTROINTESTINAL [address] [place] [address] [place], [place] [id number] Surgery Details Date/Time Status Location OR Service Patient Class Case Case Trauma Class Type Case? 07/13/21 9:00 Posted GI GI A Gastroenterology Outpatient AM Panel 1 Procedure LRB Anes Op Region Wound Class Commen ts COLONOSCOPY, WITH N/A Conscious Sedation Rectum II-Clean C ontaminated BIOPSIES USING BIOPSY FORCEP Surgeon Surgeon Role Service Panel Taras Redman MD Primary Gastroenterology 1 Special Needs miralax ps 06/25, BR (fv) documented in this encounter Social History Tobacco [...] Sign Reading Time Taken Comments Blood Pressure 106/73 07/13/2021 9:30 AM CDT Pulse 79 07/13/2021 9:30 AM CDT Temperature 36.9 ??C (98.4 ??F) 07/13/2021 9:01 AM CDT Respiratory Rate 16 07/13/2021 9:30 AM CDT Oxygen Saturation 96% 07/13/2021 9:30 AM CDT Inhaled Oxygen Concentration - - [...] Ask yourdoctor about supplemental fiber products. ?? 9435-2412 Neisha Pierre, [address] [place] [address], [place] [address]. All rights reserved. This information is not [...] needed, you may be told to take tyfo-mvd-mmotygn stool softeners. To help relieve pain, antispasmodic [...] the option of having surgery with you. [place] to Colon Health Help keep your colon healthy with a diet that includes plenty of high-fiber fruits, vegetables, and whole grains. Drink plenty of liquids like water and juice. Your doctor may also recommend avoiding seeds and nuts. ?? 9566-1741 [facility], [address] [place] [address], [place] [address]. All rights reserved. This information is not intended as a substitute for professional medical care. Always follow your healthcare professional's instructions. documented in this encounter Medications at Time of Discharge Medication Sig Dispensed Refills Start Date End Date ASPIRIN PO Take 81 mg by mouth 0 daily calcium carbonate (OS-GRABIEL Take 2 tablets by 0 500 MG [place]. CA) 1250 MG mouth daily tablet Multiple [...] Reported, Patient calcium carbonate (OS-GRABIEL 500 MG [place]. CA) 1250 MG tablet Take 2 tablets [...] CDT cancer BIOPSY Special Needs miralax ps 8/6, BR (fv) COLONOSCOPY Routine 07/13/2021 8:56 AM CDT Resul ts for this procedure are in the results section . documented in this encounter Results Surgical Pathology Exam (07/13/2021 9:17 AM CDT) Component Value Ref Test Analysis Performed At [facility] gist Range Method Time Signature Case Report Surgical Pathology Report ? Case: [id number] ? 07/14/2021 Authorizing Provider: ??Taras Aragon MD ?Collected: ? 07/13/2021 09:17 AM ? 9:43 AM CDT LABORATO RY Ordering Location: ? [facility] [place] ?Received: ?07/13/2021 10:17 AM ? Endoscopy [facility] ? Pathologist: ? Melanie Kee MD PhD ? Specimen: ?Small Intesti ne, Terminal [...] CDT LABORATORY this testing was completed at [facility] Laboratory Specimen Anatomical Collection Method Collection Time Receive d Time (Source) Location / / Volume Laterality Biopsy STRUCTURE OF 07/13/2021 9:17 AM 1 DISTAL PORTION OF CDT 10:17 AM C DT ILEUM / Unknown Taras LEE - JOHN [place] Performing Organization Address City/State/ZIP Code [place] [address] Care Lab [address] [facility] (1st floor, no room number) COLONOSCOPY (07/13/2021 8:56 AM CDT) [facility] Method Time Signature COLONOSCOPY [facility] RADIOLOGY RESULTS Patient Name: Jeanine Pettit ?Procedure D ate: 07/13/2021 8:56 AM ? Accou nt Number: [id number] Date of : 1950 ? Admit Type: Out patient Age: 71 ? Gender: Female Attending MD: Taras hinds MD ?? Total Sedation Time: 12_minutes continuous bedside 1:1 Instrument Name: 222 - Adult Colonoscope Procedure: ?Colonoscopy Indications: ?High ri sk colon cancer surveillance: Personal ?history of colonic po lyps Providers: ?Taras Redman MD (Doc [facility]) Referring MD: ? Medicines: ?Midazo lambert 1 [...] ?oxygen saturations were monitored continuously. The ?Olympus Adult Colonoscope, Model # CF-GN204J, ?Endora # 222, SN # [id number] was introduced through ?the anus and advanced [...] retroflexion ? views. ? Impression: ? - Alexandrea t end-to-end ileo-colonic anastomosis, ?characterized by inflammation. Biopsied. ?- Ulcerated mucosa at the ileal surgical ?anastomosis. Biopsied . ?- Diverti culosis in the sigmoid colon. ?- The examination was otherwise normal on direct ?and retroflexion view s. Recommendation: ? - Await pathology results. ?- Repeat colonoscopy in 5 years for surveillance. ? Procedure Code(s): ? --- Professional --- ? 99709, Colonoscopy, flexible; with biopsy, single or multiple Diagnosis Code(s): ? --- Professional --- ? Z98.0, Intestinal bypass and anastomosis status ? K63.3, Ulcer of intestine ? Z86.010, Personal history of colonic polyps CPT copyright 2019 [employer] [place] [employer]. All rights reserved. The codes documented in this report are prelimin hallie and upon women's health care nurse practitioner review may be revised to meet current compliance requirements. Electronically signed by Taras Redman MD Taras Redman MD 07/13/2021 9:32:26 AM I was physically present for the entire viewing portion of t he exam. Taras Redman MD Number of Addenda: 0 Note Initiated On: 07/13/2021 8:56 AM MRN: ?[id number] Procedure Date: ? 07/13/2021 8:56:33 AM Scope [...] RESULTS documented in this encounter Visit Diagnoses Diagnosis Screen for colon cancer Special screening for malignant neoplasm s, colon documented in this encounter Administered Medications Inactive Administered [...] on Mon07/13/21 at 0810, For 1 dose, [place] throat with 1-4 spr ays 5 minutes [...] sedation, Administer over 1 Minutes, Starting on 07/13/21 at 0931, For 12 hours, Give [...] mcg (COMPLETED) 908 (Given - Provider: Mercedes Hernandez, RN) 25-50 mcg, Intravenous, ONCE WITHIN 24 [...] on Mon07/13/21 at 0810, For 1 dose, [place] throat with 1-4 sprays 5 minutes prior [...] 3 mL 0910 (Given - Provider: Mercedes Hernandez RN) 3 mL, Intracatheter, EVERY 1 MIN [...] provider.
documented in this encounter Care Teams Bag Adjuster Relationship Specialty Start Date End Date Tena Romero PA-C PCP - General 06/16/21 [facility] [address] [place], [place] [phone] [facility], [facility] 06/01/[address] [place] [address] [place], [place] [phone] documented as of this encounter
--- OUTSIDE RECORDS SUMMARY | 2022-08-04 08:05 | XMS_ITS | Encounter Summary ---
:1950 Author Organization [place] Address [address] [place] [address] Care Team Providers Name Role Phone Unavailable Primary Care Provider Unavailable Reason for Visit Auth/Cert (Routine) - Closed Specialty Diagnoses / Procedures Referred By Contact Refer red To Contact Gastroenterology Diagnoses Polyp History Endoscopy Procedures COLONOSCOPY [address] [place] [address] Phone: Fax: Referral ID Status Reason Start Date Expiration Date Visits Requ ested Visits Authorized [id number] Closed 1 1 Encounter Details Date Type Department Care Team Description 06/05/2012 Surgery [facility] Endoscopy Trae Kay MD COLONOSCOPY [place] XXX RETIRED XXX [address] [place] [facility] [place] [address] [place] [address] [phone] Surgery Details Date/Time Status Location OR Service Patient Class Case Case Trauma Class Type Case? 06/05/12 8:30 Posted GI GI C Gastroenterology Outpatient AM Panel 1 Procedure LRB Anes Op Region Wound Class Commen ts COLONOSCOPY N/A Conscious Sedation Rectum II-Clean Contami nated COLONOSCOPY Surgeon Surgeon Role Service Panel Trae Kay MD Primary Gastroenterology 1 Special Needs Ref: Dr Oreilly documented in this encounter Social History Tobacco [...] encounter Results COLONOSCOPY (06/05/2012 8:32 AM CDT) [facility] Method Time Signature COLONOSCOPY [facility] RAD IOLOGY RESULTS Patient Name: Jeanine Pettit ? Procedure Date: 06/05/2012 8:32:35 AM ? Date of : 1950 ? Admit Type: Outpatient ? Age: 61 ? Gender: Female ? Attending MD: Trae Rodriguez MD ? Procedure: ?Colonoscopy Indications: ?Personal histor y of colonic polyps - sessile ?[facility] Providers: ?Trae Kay MD Referring MD: ? Janice Oreilly MD, Jaylen Brooks MD [...] MAR Action Action Date Dose Rate Site atropine injection Given 06/05/2012 9:02 AM CDT 0.6 mg PRN, Starting on Mon06/05/12 at 0902, Intra-procedure fentaNYL (SUBLIMAZE) injection Given 06/05/2012 9:02 AM CDT 100 mcg PRN, moderate to severe pain, Starting on Mon06/05/12 at 0902, Intra-procedure midazolam (VERSED) injection Given 06/05/2012 9:02 AM CDT 2 mg PRN, anxiety, Starting on Mon06/05/12 at 0902, Intra-procedure documented in this encounter Active and Recently Administered Medications Times are shown in CDT. PRN Medication Order 06/03/2012 06/04/2012 06/05/2012 atropine injection (CANCELED) 07 22 (Given - Provider: Trae Kay MD) PRN, Starting Mon06/05/12 at 0902, Intra-procedure fentaNYL (SUBLIMAZE) injection (CANCELED) 901 (Given - Provider: Trae Kay MD) PRN, moderate to severe pain, Starting Mon06/05/12 at 0902, Intr a-procedure midazolam (VERSED) injection (CANCELED) 901 (Given - Provider: Trae Kay MD) PRN, anxiety, Starting Mon06/05/12 at 0902, Intra-procedure documented in this encounter
--- OUTSIDE RECORDS SUMMARY | 2022-08-04 08:05 | XMS_ITS | Encounter Summary ---
:1950 Author Organization [place] Address [address] [place] [address]. [place] [address] Care Team Providers Name Role Phone Janice Oreilly MD Primary Care Provider Reason for Visit Auth/Cert - Closed Specialty Diagnoses / Procedures Referred By Contact Refer red To Contact Gastroenterology Diagnoses HX OF POLYPS Rh Endoscopy Procedures COLONOSCOPY [address] [place] [address] Phone: Fax: Referral ID Status Reason Start Date Expiration Date Visits Requ ested Visits Authorized [id number] Closed 1 1 Encounter Details Date Type Department Care Team Description 06/04/2014 Hospital Encounter [facility] Taras Redman , Endoscopy Dayanna MILLER [address] [place], [place] GASTROINTESTINAL [address] [address] [facility] [phone] [place], [place] [phone] (Wo rk) Social History Tobacco Use Types [...] Sign Reading Time Taken Comments Blood Pressure 113/77 06/04/2014 9:00 AM CDT Pulse - - Temperature - - Respiratory Rate 12 06/04/2014 9:00 AM CDT Oxygen Saturation 96% 06/04/2014 9:00 AM CDT Inhaled Oxygen Concentration - - Weight 63.5 kg (140 lb) 06/04/2014 7:57 AM CDT Height 162.6 cm (5' 4) 06/04/2014 7:57 AM CDT Body Mass Index 24.03 06/04/2014 7:57 AM CDT documented in this encounter Discharge Instructions Discharge InstructionsJeromy Morrissey RN - 06/04/2014 8:30 AM CDT The patient has received a [...] encounter H&P Notes Taras Redman MD - 06/04/2014 7:59 AM CDT Pre-Endoscopy History and Physical Jeanine Pettit Date of : 1950 Age: [age] year old Date of Procedure: 06/04/2014 Primary care provider: Janice Oreilly Type of Endoscopy: Colonoscopy with possible biopsy, possible polypectomy Reason for Procedure: screen Type of Anesthesia Anticipated: Conscious Sedation HPI: Jeanine is a 63 year old female who will be undergoing [...] per pt reprt Past Surgical History Procedure Laterality Date ??? Gi surgery right hemicoloecotmy ??? Colonoscopy 06/05/2012 Procedure: COLONOSCOPY; COLONOSCOPY; Surgeon: Trae Kay MD; Location: GI History Substance Use Topics ??? Smoking status: Former Smoker Quit date: 06/05/1988 ??? Smokeless tobacco: Former User ??? Alcohol Use: Yes Comment: daily Family History Problem Relation Age of Onset ??? Colon CA Father Prior to Admission medications Medication Sig Start Date End Date Taking? Authorizing Provider SIMVASTATIN PO Take by mouth. Yes Reported, [...] EXAM: Ht 1.626 m (5' 4) Wt 63.504 kg (140 lb) BMI 24.02 kg/m2 Estimated body mass index is 24.02 kg/(m^2) as calculated from the following: Height as of this encounter: 1.626 m (5' 4). Weight as of this encounter: 63.504 kg (140 lb). GENERAL APPEARANCE: alert, and [...] provider. Signed Electronically by: Taras Redman MD June 04, 2014 documented in this encounter Plan of Treatment Not on filedocumented as of this encounter Procedures Procedure Name Priority Date/Time Associated Diagnosis Comme nts COLONOSCOPY Routine 06/04/2014 8:02 AM Results f or this CDT procedure are i n the results section . COLONOSCOPY 06/04/2014 8:00 AM screen CDT Special Needs DR. ROMAN documented in this encounter Results COLONOSCOPY (06/04/2014 8:02 AM CDT) [facility] Method Time Signature COLONOSCOPY [facility] RAD IOLOGY RESULTS Patient Name: Jeanine Pettit ? Procedure Date: 06/04/2014 8:02:52 AM ? Date of : 1950 ? Admit Type: Outpatient ? Age: 63 ? Gender: Female ? Attending MD: Taras Montelongo MD ? Procedure: ?Colonoscopy Indications: ?[place] colon cancer surveillance: Personal ?history of colonic po lyps Providers: ?Taras Redman MD Referring MD: ? Janice Oreilly MD Medicines: ?Midazolam 2 mg IV, Fentanyl 100 micrograms IV Complications: ?No immediate complications Procedure: ?Pre-Anesthesia [...] ?Examination: clear to auscultation. CV Examination: ?normal. Prophylactic Antibiotics: The patient does ?not require prophylactic antibiotics. Prior ?Anticoagulants: The patient has taken no previous ?anticoagulant or antiplatelet agents. ASA Grade ?Assessment: II - A patient with mild systemic ?disease. After reviewing the risks and benefits, ?the [...] and ?oxygen saturations were monitored continuously. The ?PCF-H190L [id number] was introduced through the anus ?and advanced to the anastamosis.. The colonoscopy ?was performed without difficulty. The patient ?tolerated the procedure well. The quality of the ?bowel preparation was good. ? Findings: ? The perianal and digital rectal examinations were n ormal. The entire ? examined colon appeared normal on direct and retroflexion views. There ? were tiny apthous ulcers seen at the [facility] were not ? significant. ? Impression: ? - The entire examined colon is normal on direct and ?retroflexion views. Recommendation: ? - Repeat colonoscopy in 3 years for surveillance. ? Electronically signed by Taras Redman MD Taras Redman MD Signed Date: 06/04/2014 8:42:32 AM Number of Addenda: 0 I was physically present for the entire viewing portion of t he exam. Note Initiated On: 06/04/2014 8:02:52 AM Scope Withdrawal Time: 0 hours 5 minutes 56 seconds Scope Withdrawal Time: 0 hours 5 minutes 56 seconds Total Procedure Duration: 0 hours 13 minutes 25 seconds Total Procedure Duration: 0 hours 13 minutes 25 seconds Specimen (Source) Anatomical Collection Method Collection Time Re ceived Time Location / / Volume Laterality 06/04/2014 8:02 AM CDT Janice Oreilly MD PROCEDURES Performing Organization Address City/State/ZIP Code Phon e Number RADIOLOGY RESULTS documented in this encounter Visit Diagnoses Not on filedocumented in this encounter Active and Recently Administered Medications Times are shown in CDT. PRN Medication Order 06/02/2014 06/03/2014 06/04/2014 fentaNYL (SUBLIMAZE) injection (CANCELED) 08 (Given - Provider: Taras Redman MD) PRN, Starting Mon06/04/14 at 0807, moderate to severe pain, Intr a-procedure midazolam (VERSED) injection (CANCELED) 806 (Given - Provider: Taras Redman MD) PRN, Starting Mon06/04/14 at 0807, anxiety, Intra-procedure documented in this encounter Care Teams Vacuum Spindle Sander Relationship Specialty Start Date End Date Janice Oreilly MD PCP - General Family Practice 05/14/14 06/15/21 [facility] MEDICAL [address] [place] [address] documented as of this encounter
--- OUTSIDE RECORDS SUMMARY | 2022-08-04 08:05 | XMS_ITS | Encounter Summary ---
:1950 Author Organization [place] Address [facility] [place] [address] Care Team Providers Name Role Phone Janice Oreilly MD Primary Care Provider Reason for Visit Auth/Cert - Closed Specialty Diagnoses / Procedures Referred By Contact Refer red To Contact Gastroenterology Diagnoses HX OF POLYPS Rh Endoscopy Procedures COLONOSCOPY [address] [place] [address] Phone: Fax: Referral ID Status Reason Start Date Expiration Date Visits Requ ested Visits Authorized [id number] Closed 1 1 Encounter Details Date Type Department Care Team Description 06/04/2014 Surgery [facility] Endoscopy Taras Aragon MD COLONOSCOPY [facility] [address] [place] [address] [place] [address] [place] [address] [phone] (Wo rk) Surgery Details Date/Time Status Location OR Service Patient Class Case Case Trauma Class Type Case? 06/04/14 8:30 Posted [facility] A Gastroenterology Outpatient AM Panel 1 Procedure LRB Anes Op Region Wound Class Commen ts COLONOSCOPY N/A Conscious Sedation Rectum II-Clean Contami nated COLONOSCOPY Surgeon Surgeon Role Service Panel Taras Redman MD Primary Gastroenterology [address] ROMAN documented in this encounter Social History Tobacco [...] documented in this encounter Discharge Instructions Discharge InstructionsHuJeromy bryant RN - 06/04/2014 8:30 AM CDT The [...] encounter Results COLONOSCOPY (06/04/2014 8:02 AM CDT) [facility] Method Time Signature COLONOSCOPY [facility] RAD IOLOGY RESULTS Patient Name: Jeanine Pettit [...] and ?oxygen saturations were monitored continuously. The ?[facility]-H190L [id number] was introduced through the anus ?and advanced to the [facility].. The colonoscopy ?was performed without difficulty. The patient ?tolerated the procedure well. The quality of the ?bowel preparation was good. ? Findings: ? The perianal and digital rectal examinations were n ormal. The entire ? examined colon appeared normal on direct and retroflexion views. There ? were tiny apthous ulcers seen at the anastamosis whic h were not ? significant. ? Impression: ? [...] MAR Action Action Date Dose Rate Site fentaNYL (SUBLIMAZE) injection Given 06/04/2014 8:07 AM CDT 100 mcg PRN, moderate to severe pain, Starting on Mon06/04/14 at 0807, Intra-procedure midazolam (VERSED) injection Given 06/04/2014 8:07 AM CDT 2 mg PRN, anxiety, Starting on Mon06/04/14 at 0807, Intra-procedure documented in this encounter Active and Recently Administered Medications Times are shown in CDT. PRN Medication Order 06/02/2014 06/03/2014 06/04/2014 fentaNYL (SUBLIMAZE) injection (CANCELED) 806 (Given - Provider: Taras Redman MD) PRN, Starting Mon06/04/14 at 0807, moderate to severe pain, Intr a-procedure midazolam (VERSED) injection (CANCELED) 806 (Given - Provider: Taras Redman MD) PRN, Starting Mon06/04/14 at 0807, anxiety, Intra-procedure documented in this encounter Care Teams Director Mba Relationship Specialty Start Date End Date Janice Oreilly MD PCP - General Family Practice 05/14/14 06/15/21 [facility] [address] [place] [address] documented as of this encounter
--- OUTSIDE RECORDS SUMMARY | 2022-08-04 08:06 | XMS_ITS | Encounter Summary ---
:1950 Author Organization [place] Address [address] [place] [address] Care Team Providers Name Role Phone Unavailable Primary Care Provider Unavailable Encounter Details Date Type Department Care Team Description 02/06/2006 GI Procedure [facility] Trae Kay MD None Endoscopy [facility] RETIRED XXX [address] [place] [address] [place] [address] [phone] Social History Tobacco Use Types Packs/Day Years Used Date Never Assessed Sex Assigned at Date Recorded Not on file documented as of this encounter Plan of Treatment Not on filedocumented as of this encounter Procedures Procedure Name Priority Date/Time Associated Diagnosis Comme nts COLONOSCOPY Routine 02/06/2006 8:40 AM Results f or this MAIL SORTING SUPERVISOR procedure are i n the results section . documented in this encounter Results COLONOSCOPY (02/06/2006 8:40 AM MAIL SORTING SUPERVISOR) [facility] Method Time Signature COLONOSCOPY Endoscopy RADIOLOGY RESULTS Patient Name: Jeanine Pettit ? Gender: F ? Procedure Date: 02/06/2006 8: 40 AM ? Date of : 1950 ? Age: 55 ? Admit Type: Outpatient ? Attending MD: Trae Kay ? Procedure: ?Colonoscopy Indications: ?Avg risk screening for malignant neoplasm in the colon Providers: ?Trae Kay MD Referring MD: ?? Afua West MD Medicines: ?Fentanyl 100 mcg IV, Midazola m 2 mg IV, Atropine 0.6 mg IV Complications: ??No immediate complications Procedure: ?- A History and Physical has been perfo rmed, and patient ?medi cation allergies have been reviewed. The patient The ?risk s and benefits of the procedure and the sedation options ?and risks were discussed with the patient. All questions were ?answered and informed consent was obtained. Patient ?iden tification and proposed procedure were verified prior to ?the procedure by the physician in the procedure room. Mental ?Stat us Examination: normal. Respiratory Examination: clear to ?ausc ultation. CV Examination: normal. ASA Grade Assessment: ?P1 A normal healthy patient. After reviewing the risks and ?bene fits, the patient was deemed in satisfactory condition to ?undergo the procedure. T he anesthesia plan was to use ?moderate sedation / analgesia (con scious sedation). ?Imme diately prior to administration of medications, the ?lakisha ent was re-assessed for adequacy to receive sedatives. ?The heart rate, respiratory rate, oxygen saturations, blood ?pres sure, adequacy of pulmonary ventilation, and response to ?care were monitored throughout the procedure. The physical ?stat us of the patient was re-assessed after the procedure. ?Afte r obtaining informed consent, the colonoscope was passed ?unde r direct vision. Throughout the procedure, the patient's ?bloo d pressure, pulse, and oxygen saturations were monitored ?cont inuously. The [address] #[id number] was introduced through ?the anus and advanced to the ileum. The colonoscopy was ?acco mplished without difficulty. The patient tolerated the ?procedure well. The quality of the prep was excellent. ? Findings: ? The digital rectal exam was normal. A sessile polyp was found in the ? transverse colon. The polyp was 3 mm in size. Polypectomy was performed ? with a hot snare. Resection and retrieval were comple te.A benign ? appearing sessile polyp was found in the rectum. The polyp was 2 mm in ? size. This was biopsied with a hot forceps for histology. The sigmoid ? colon, descending colon, splenic flexure, hepatic f lexure, ascending ? colon, cecum, ileocecal valve and ileum were normal . The retroflexed ? view of the anal verge was normal and showed no anal or rectal ? abnormalities. The terminal ileum was normal. ? Impression: ? - One 3 mm polyp in the transverse colon. Resected and ?retrieved. ?- On e benign appearing 2 mm polyp in the rectum. Tissue was ?removed. ?- Th e sigmoid colon, descending colon, splenic flexure, ?hepa tic flexure, ascending colon, cecum, ileocecal valve and ?terminal ileum are normal. ?- The terminal ileum is normal. Recommendation: - Discharge patient to home (ambulatory). ?- Patient should telephone endoscopi st in 1 week. ?- If polyp is adenomatous repeat colonoscopy in 3 years. If ?polyp is hyperplastic then hemoccu lts q yr and flex ?sigmoidoscopy in 3 yrs. ?- Return to primary care provider ID N. ? CPT Code(s): ?24238, Colonoscopy, flexible, proxim al to splenic flexure; ?with removal of tumor(s), polyp(s), or other lesion(s) by ?snare technique ICD Code(s): ?211.3, Benign Neoplasm of Colon The codes documented in this report are prelimin hallie and upon digital marketing apprentice review may be revised to meet current compliance requirements. Krunal Kay M.D Trae Kay MD Signed Date: 02/06/2006 9:21 AM Number of Addenda: 0 I was physically present for the entire viewing portion of t he exam. Note generated on 02/06/2006 8:41 AM COLONOSCOPY RADIOLOGY RESULTS Specimen (Source) Anatomical Collection Method Collection Time Re ceived Time Location / / Volume Laterality 02/06/2006 8:40 AM MAIL SORTING SUPERVISOR Trae Kay MD PROCEDURES Performing Organization Address City/State/ZIP Code Phon e Number RADIOLOGY RESULTS documented in this encounter Visit Diagnoses Not on filedocumented in this encounter
--- OUTSIDE RECORDS SUMMARY | 2022-08-04 08:06 | XMS_ITS | Encounter Summary ---
:1950 Author Organization [place] Address [address] [place] [address] Care Team Providers Name Role Phone Unavailable Primary Care Provider Unavailable Encounter Details Date Type Department Care Team Description 04/16/2009 Historic Results INTERFACED REPORT [place]elo [place] [address] (Wo rk) Social History Tobacco Use Types Packs/Day Years Used Date Never Assessed Sex Assigned at Date Recorded Not on file documented as of this encounter Plan of Treatment Not on filedocumented as of this encounter Procedures Procedure Name Priority Date/Time Associated Diagnosis Comme nts HISTOPATHOLOGY Routine 04/16/2009 12:00 AM Result s for this CDT procedure are i n the results section . documented in this encounter Results Histopathology (04/16/2009 12:00 AM CDT) Component Value Ref Test Analysis Performed At [facility] Range Method Time Signature Copath Report CASE: [id number] ^ COPATH Patient Name: DESHAUN PETTIT MR#: [id number] Specimen #: [id number] Collected: 04/16/2009 Received: 04/16/2009 Reported: 04/17/2009 13:58 Ordering Phy(s): CARMELO VALIENTE Additional Phy(s): MARINA MENSAH SPECIMEN(S): Colon biopsy, ascending FINAL DIAGNOSIS: Ascending colon polyps, biopsy/polypectomy - Multiple fragme nts of sessile serrated adenoma(s). ??No evidence of high grade dys plasia or malignancy. Electronically signed out by: Chan Call M.D. CLINICAL HISTORY: Polyp. GROSS: The specimen, labeled ascending polyp and it consists of a pproximately eight friable pink-joy fragments aggregating to 0.5 x 0.5 x 0.1 cm. Entirely submitted. ??ED/tory MICROSCOPIC: All of the polyp fragments are portions of serrated polyps w ith mild architectural distortion consistent with sessile serrated ad enoma(s). ED/tory 04-17-09 TESTING LAB LOCATION: [address] ??[address] COLLECTION SITE: Client: [facility] Location: ENDO (R) Specimen (Source) Anatomical Collection Method Collection Time Re ceived Time Location / / Volume Laterality 04/16/2009 04/17/2009 1:59 PM CDT Carmelo Valiente MD LAB - COPATH SPECIAL DIAG OR DERABLES Performing Organization Address City/State/ZIP Code Phon e Number COPATH documented in this encounter Visit Diagnoses Not on filedocumented in this encounter
--- OUTSIDE RECORDS SUMMARY | 2022-08-04 08:06 | XMS_ITS | Encounter Summary ---
:1950 Author Organization [place] Address [address] [place] [address] Care Team Providers Name Role Phone Unavailable Primary Care Provider Unavailable Encounter Details Date Type Department Care Team Description 12/01/2004 Results Only [facility] Results Maci Peterson MD [address] [place], [place] [address] (Wo rk) Social History Tobacco Use Types Packs/Day Years Used Date Never Assessed Sex Assigned at Date Recorded Not on file documented as of this encounter Plan of Treatment Not on filedocumented as of this encounter Procedures Procedure Name Priority Date/Time Associated Diagnosis Comme nts C MAMMOGRAM, Routine 12/01/2004 1:43 PM Results f or this SCREENING INSTALLATION SERVICE REPRESENTATIVE procedure are i n the results section. documented in this encounter Results MAMMOGRAM, SCREENING (12/01/2004 1:43 PM INSTALLATION SERVICE REPRESENTATIVE) Specimen (Source) Anatomical Collection Method Collection Time Re ceived Time Location / / Volume Laterality 12/01/2004 1:43 PM INSTALLATION SERVICE REPRESENTATIVE Impressions Pacs, Data Conversion - 12/02/2004 5:18 PM INSTALLATION SERVICE REPRESENTATIVE EXAM: Bilateral analog screening Mammogr aphy with Computer Aided Detection (CAD) 11/30/04. COMPARISON: 05/17/04 and 04/30/03. HISTORY: Routine screening mammogram. FINDINGS: Tissue density is heterogeneou s. There is no architectural distortion, mass, or suspicious calcific ation identified. IMPRESSION: BI-RADS 2. ??Benign findings . RECOMMENDATION: Routine yearly mammogram . I have personally reviewed the image and initial interpretation and agree with the findings. Maci Peterson MD SPECIAL IMAGING STUDIES documented in this encounter Visit Diagnoses Not on filedocumented in this encounter
--- OUTSIDE RECORDS SUMMARY | 2022-08-04 08:06 | XMS_ITS | Encounter Summary ---
:1950 Author Organization [place] Address [address] [place] [address] Care Team Providers Name Role Phone Unavailable Primary Care Provider Unavailable Encounter Details Date Type Department Care Team Description 03/05/2007 GI Procedure [facility] Endoscopy Afua West None [place] [address] [place] [address] Social History Tobacco Use Types Packs/Day Years Used Date Never Assessed Sex Assigned at Date Recorded Not on file documented as of this encounter Plan of Treatment Not on filedocumented as of this encounter Procedures Procedure Name Priority Date/Time Associated Diagnosis Comme nts COLONOSCOPY Routine 03/05/2007 7:20 AM Results f or this CDT procedure are i n the results section . documented in this encounter Results COLONOSCOPY (03/05/2007 7:20 AM CDT) [facility] Method Time Signature COLONOSCOPY Endoscopy RADIOLOGY RESULTS Patient Name: Jeanine Pettit ? Gender: F ? Procedure Date: 03/05/2007 7: 20 AM ? Date of : 1950 ? Age: 56 ? Admit Type: Outpatient ? Attending MD: Trae Kay ? Procedure: ?Colonoscopy Indications: ?Personal h istory of colonic polyps - sessile serrated adenoma ?right colon. Providers: ?Trae Kay MD Referring MD: ?? [...] oxygen saturations were monitored ?cont inuously. The [address] #[id number] was introduced through ?the anus and advanced to the ileum. The colonoscopy was ?acco mplished without difficulty. The patient tolerated the ?procedure well. The quality of the prep was excellent. ? Findings: ? The digital rectal exam was normal. The rectum, sigmo id colon, ? descending colon, splenic flexure, transverse c olon, hepatic flexure, ? ascending colon, cecum, ileocecal valve and ileum wer e normal. The ? retroflexed view of the anal verge was normal and ryanne wed no anal or ? rectal abnormalities. The terminal ileum was normal. ? Impression: ? - The rectum, sigmoid colon, descending co shira, splenic ?flex ure, transverse colon, hepatic flexure, ascending colon, ?cecum, ileocecal valve a nd terminal ileum are normal. ?- The terminal ileum is normal. Recommendation: - Discharge patient to home (ambulatory). ?- Repeat colonoscopy in 2 years for surveillance. ?- Return to primary care provider [place]. ? R Eliza Allred Trae Kay MD Signed Date: 03/05/2007 8:38 AM Number of Addenda: 0 I was physically present for the entire viewing portion of t he exam. Note generated on 03/05/2007 7:21 AM COLONOSCOPY RADIOLOGY RESULTS Specimen (Source) Anatomical Collection Method Collection Time Re ceived Time Location / / Volume Laterality 03/05/2007 7:20 AM CDT Afua West PROCEDURES Performing Organization Address City/State/ZIP Code Phon e Number RADIOLOGY RESULTS documented in this encounter Visit Diagnoses Not on filedocumented in this encounter
--- OUTSIDE RECORDS SUMMARY | 2022-08-04 08:06 | XMS_ITS | Encounter Summary ---
:1950 Author Organization [place] Address [address] [place] [address] Care Team Providers Name Role Phone Unavailable Primary Care Provider Unavailable Encounter Details Date Type Department Care Team Description 12/15/2009 Results [facility] Anastasia Salas MD Hospital Results [address] [place], [place] [address] (Wo rk) Social History Tobacco Use Types Packs/Day Years Used Date Never Assessed Sex Assigned at Date Recorded Not on file documented as of this encounter Plan of Treatment Not on filedocumented as of this encounter Procedures Procedure Name Priority Date/Time Associated Diagnosis Comme [facility] MAMMO SCREEN Routine 12/15/2009 8:22 AM Result s for this BILATATERAL, INCL BANKING PARALEGAL procedure are in CAD WHEN PERF the results section. documented in this encounter Results SCREENING MAMMOGRAPHY DIGITAL (BILAT) (12/15/2009 8:22 AM BANKING PARALEGAL) Specimen (Source) Anatomical Collection Method Collection Time Re ceived Time Location / / Volume Laterality 12/15/2009 8:22 AM BANKING PARALEGAL Impressions RADIOLOGY RESULTS - 12/15/2009 11:11 AM BANKING PARALEGAL SCREENING MAMMOGRAPHY, BILATERAL, DIGITA L, w/CAD ??December 15, 2009. HISTORY/COMPARISON: Routine. 12/12/2008, 12/07/2005 BREAST PARENCHYMAL PATTERN: ??Heterogene ously dense. FINDINGS: ??Negative. ?? IMPRESSION: ??BI-RADS 1, NEGATIVE. Anastasia Salas MD SPECIAL IMAGING STUDIES Performing Organization Address City/State/ZIP Code Phon e Number RADIOLOGY RESULTS documented in this encounter Visit Diagnoses Not on filedocumented in this encounter
--- OUTSIDE RECORDS SUMMARY | 2022-08-04 08:06 | XMS_ITS | Encounter Summary ---
:1950 Author Organization [place] Address [address] [place] [address] Care Team Providers Name Role Phone Unavailable Primary Care Provider Unavailable Encounter Details Date Type Department Care Team Description 06/11/2010 Discharge Summary [facility] Brandi Madrid, (Prosthodontist) [facility] Results [address] [place] [address] (Wo rk) Social History Tobacco Use Types Packs/Day Years Used Date Never Assessed Sex Assigned at Date Recorded Not on file documented as of this encounter Progress Notes Brandi Madrid - 06/27/2010 1:45 PM CDT FINAL PREOPERATIVE DIAGNOSIS: Serrated adenoma of the right colon. POSTOPERATIVE DIAGNOSIS: Serrated adenoma of the right colon. SURGICAL INDICATIONS: Ms. Deshaun Barnes is a 59-year-old woman who had a routine screening colonoscopy which showed 3 serrated adenomas in the right colon and transverse colon. Two of these were removedcompletely. The other was broad-based and unable to be removed. Although there was no atypia or cancer or biopsy of it, operation was advised. The patient understood the indications for operation, the risks and potential complications and she consented. Therefore, on 06/07/2010, the patient underwent the procedure of laparoscopic right hemicolectomy. This was done under general anesthesia with an estimated blood loss of 50 cc. The patient tolerated the procedure well and was transferred to recovery in good condition. POSTOPERATIVE COURSE: The patient was given appropriate perioperative antibiotic therapy (Invanz). She was on IV pain medication initially after surgery until she was able to tolerate p.o. intake. On postoperative day #1, the patient was afebrile and vital signs were stable and remained that way throu ghout her course. She complained of some abdominal incisional pain but had been up walking several times. On exam, her abdomen was soft and tender near the incision and had positive bowel sounds. At this time, her [place] was discontinued and she was started on a clear liquid diet. On her second postoperative day, the patient was voiding on her own and had flatus. Her diet was advanced to a full liquiddiet at this time. On postoperative day #3, the patient was having multiple loose bowel movements and her diet was advanced to a regular diet. By postoperative day #4, the patient was doing quite well,tolerating a regular diet, voiding independently, having bowel activity, and tolerating the use of No rco as needed for pain management. Therefore, on 06/11/2010, the patient was cleared for discharge to home. Discharge instructions were given to the patient regarding activity and weight restriction, care ofher incisions and the use of [place] as needed for pain management at home. She was recommended to follow up with Dr. Madrid in the office for regular postoperative check. She was also instructed to callprior to her appointment if she had any other questions or concerns. Final pathology report on the surgical specimen (ascending colon and distal ileum resection) revealed a large sessile serrated adenoma approximately 2 cm in the mid colon segment. There is no evidenceof malignant change seen. The appendix was also in the specimen and showed partial fibrofatty obliteration of the lumen. There were 23 benign lymph nodes. Electronically signed on 06/27/2010 13:45 by BRANDI MADRID MD As dictated by DASHAWN HOBSON PA-C MT: [id number] Name: DESHAUN BARNES Account: [id number] : 1950 Admit Date: Discharge Date: 06/11/2010 Document: [id number] cc: Anastasia Whitaker NP documented in this encounter Plan of Treatment Not on filedocumented as of this encounter Visit Diagnoses Not on filedocumented in this encounter
--- OUTSIDE RECORDS SUMMARY | 2022-08-04 08:06 | XMS_ITS | Encounter Summary ---
:1950 Author Organization [place] Address [address] [place] [address] Care Team Providers Name Role Phone Unavailable Primary Care Provider Unavailable Encounter Details Date Type Department Care Team Description 04/16/2009 GI Procedure Anastasia Salas MD None [address] [place], [place] [address] (Wo rk) Social History Tobacco Use Types Packs/Day Years Used Date Never Assessed Sex Assigned at Date Recorded Not on file documented as of this encounter Plan of Treatment Not on filedocumented as of this encounter Procedures Procedure Name Priority Date/Time Associated Diagnosis Comme nts COLONOSCOPY Routine 04/16/2009 10:45 AM Results for this CDT procedure are i n the results section . documented in this encounter Results COLONOSCOPY (04/16/2009 10:45 AM CDT) [facility] Method Time Signature COLONOSCOPY Endoscopy RADIOLOGY RESULTS Patient Name: Jeanine Pettit ? Gender: F ? Procedure Date: 04/16/2009 10 :45 AM ? Date of : 1950 ? Age: 58 ? Admit Type: Outpatient ? Attending MD: Trae Kay MD ? Procedure: ? Colonoscopy Indications: ? Personal histor y of colonic polyps - sessile serrated ? adenoma of right colon. Providers: ? Trae Kay MD Referring MD: ?Adriane Whitaker MD Complications: ? No immediate complications Procedure: ? - Prior to the procedure, a History and Physical was ? performed, and patient medication allergies were ? reviewed. The patient is competent. The risks and ? benefits of the procedure and the sedation options and ? risks were discussed with the patient. All questions ? were answered and informed consent was obtained. Patient ? identification and proposed procedure were verified by ? the physician in the procedure room. Mental Status ? Examination: alert and oriented. Airway Examination: ? normal oropharyng eal airway and neck mobility. ? Respiratory Examination: clear to auscultation. CV ? Examination: normal. ASA Grade Assessment: I - A normal, ? healthy patient. After reviewing the risks and benefits, ? the patient was deemed in satisfactory condition to ? undergo the procedure. The anesthesia plan was to use ? moderate sedation / analgesia (conscious sedation). ? Immediately prior to administration of medications, the ? patient w as re-assessed for adequacy to receive ? sedatives. The heart rate, respiratory rate, oxygen ? saturations, blood pressure, adequacy of pulmonary ? ventilation, and response to care were monitored ? throughout the procedure. The physical status of the ? patient was re-assessed aft er the procedure. ? After obtaining informed consent, the colonoscope was ? passed under direct vision. Throughout the procedure, ? the patie nt's blood pressure, pulse, and oxygen ? saturations were monitored continuously. The Colonoscope ? P-51 #[id number] was introduced through the anus and ? advanced to the ileum. The colonoscopy was performed ? without difficulty. The patient tolerated the procedure ? well. The quality of the prep was good. ? Findings: ? The digital rectal ex am was normal. Two sessile polyps were found in the ? ascending colon. The polyps were 5 to 10 mm in size. These were biopsied ? with a hot forceps for histology. The rectum, sigmoid colon, descending ? colon, splenic flexure, transverse colon, hepatic fle xure, cecum, ? ileocecal valve and ileum appeared normal . The retroflexed view of the ? anal verge was normal and showed no anal or rec shabnam abnormalities. The ? terminal ileum appeared normal. ? Impression: ?- Two 5 to 10 mm polyps in the ascending colon. Tissue ? was removed. ? - The rectum, sigmoid colon, descending colon, splenic ? flexure, transverse colon, hepatic flexure, cecum, ? ileocecal valve a nd terminal ileum are normal. ? - The terminal ileum is aditi l. Recommendation: ?- Discharge patient to home (ambulat ory). ? - Patient should telephone endoscopist in 1 week. ? Assuming no malignancy then recolonoscopy in 1 yr. ? - Return to primary care phys ician PRN. ? Krunal Kay M.D Trae Kay MD Signed Date: 04/16/2009 11:37 AM Number of Addenda: 0 I was physically present for the entire viewing portion of t he exam. Note initiated on 04/16/2009 10:44 AM COLONOSCOPY RADIOLOGY RESULTS Specimen (Source) Anatomical Collection Method Collection Time Re ceived Time Location / / Volume Laterality 04/16/2009 10:45 AM CDT Anastasia Salas MD PROCEDURES Performing Organization Address City/State/ZIP Code Phon e Number RADIOLOGY RESULTS documented in this encounter Visit Diagnoses Not on filedocumented in this encounter
--- OUTSIDE RECORDS SUMMARY | 2022-08-04 08:06 | XMS_ITS | Encounter Summary ---
:1950 Author Organization [place] Address [address] [place] [address] Care Team Providers Name Role Phone Unavailable Primary Care Provider Unavailable Encounter Details Date Type Department Care Team Description 06/07/2010 Hospital Pathology [facility] Jaylen Madrid MD [facility] Results [address] [place], [place] [address] (Wo rk) Social History Tobacco Use Types Packs/Day Years Used Date Never Assessed Sex Assigned at Date Recorded Not on file documented as of this encounter Plan of Treatment Not on filedocumented as of this encounter Procedures Procedure Name Priority Date/Time Associated Diagnosis Comme nts CL AFF SURGICAL Routine 06/07/2010 12:00 AM Resul ts for this PATHOLOGY CDT procedure are i n the results section. documented in this encounter Results Hospital - SURGICAL PATHOLOGY (06/07/2010 12:00 AM CDT) Component Value Ref Test Analysis Performed At [facility] Range Method Time Signature Copath Report Patient Name: DESHAUN BARNES MR#: [id number] Specimen #: [id number] Collected: 06/07/2010 Received: 06/07/2010 Reported: 06/09/2010 17:38 Ordering Phy(s): ALFONSO MADRID SPECIMEN(S): Right colon FINAL DIAGNOSIS: Ascending colon and distal ileum resection - 1. ?Large sessile serrated adenoma (approximately 2.0 cm) in mid colon segment (8 cm from distal margin) - No evidence of mal ignant change seen. 2. ? Appendix - Partial fibrofatty obliteration of the l umen. 3. ? Mesenteric lymph nodes - Twenty-three benign lymph nodes. Electronically signed out by: Guzman Moffett M.D. CLINICAL HISTORY: Adenoma right colon. GROSS: The specimen, labeled right colon, consists of a segmental resection of right colon that includes cecum and a short segment of di stal ileum. With the bowel open, the colon measures 15 cm in from the il eocecal valve to the distal margin and another 5 cm in cecal pouch l ength. ??The distal ileal segment measures about 5 cm. ??The external concetta faces show no lesions. ??On opening the bowel, there is a small amount of fairly liquified fecal material. ??The mucosa shows no definite exo phytic lesions, but there are two adjacent areas of tattooing pigme ntation seen in the mid segment about 2.5 cm from each other and in betwe en, there are thickened mucosal folds. ??In the center of this, there may be a slight mucosal defect of about 3 mm on the surface of a fold . ??There is another slightly thickened fold about 3.5 cm from the distal end. ??At the ileocecal valve, there are two tiny nodular slightly laura ypoid areas measuring about 3 to 4 mm each. ??No other mucosal lesions a re seen. There is an appendix present that measures 5 cm in length by about 0.6 cm in fairly uniform diameter. ??The mesenteric fat attached generally has a normal appearance with some lymph nodes palpable. ??Th e distal most margin will be inked with black ink, as well as some areas o f the serosal surface underneath the area of apparent involvement. ??The proximal ileal margin is inked with blue ink. ??About 2.5 cm lateral to this main area of tattooing which is approximately 8 cm from the distal margin, there is another small area of tattooing. ??Those se ctions will be in cassette 9. ??The appendix sections show a pinpoint luigi men and are generally unremarkable. ??There are multiple small lymph nod es identified within the mesenteric fat. ??Bacteriologist Fisher[place] sections are emb edded in 13 cassettes. CASSETTE SUMMARY as follows: 1. ??Distal margin. 2. ??Proxima margin. 3 through 7. ??Serial sections extending across area of tatt ooing and previous apparent lesion. 8. ??Two small ileocecal valve polyps and a nearby thickened fold area. 9. ??Appendix. 10. ??Another small area of tattooing. 11, 12 and 13. ??Lymph nodes. [place] MICROSCOPIC: The sections of the main area of the lesion with the tattooi ng on either side shows a broad sessile ??serrated polyp with features of sessile serrated adenoma. ??There are areas that show characteristic crypt distention down to the base with bulbous and lateral distent ion and while there is some prominence of mitotic activity here and there, there is no significant atypia and no evidence of malignant change seen. ??A few areas of slightly elevated tufted configuration are seen , but mostly this is very flat and sessile. ??Black tattoo pigment is see n underneath and at the ends in the submucosa. ??Sections of the two slig htly nodular or polypoid areas on the ileal cecal valve show just some mi nute areas with serrated changes consistent with small sessile serrated adenoma formations. ??Other areas examined are not distinctive. ??Se ctions of the appendix show partial fibrofatty obliteration of the lumen u p to the fairly proximal portion. ??No other significant changes are seen here. Sectioning of the mucosa over and related to a second smalle r area of tattooing shows benign colonic mucosa with no evidence of po lyp formation. ??The mesenteric node sections show benign lymph node tissue. Twenty-three nodes are examined. Leland 06-09-10 TESTING LAB LOCATION: [address] ??[phone] COLLECTION SITE: Client: [facility] Location: [facility] (R) Specimen (Source) Anatomical Collection Method Collection Time Re ceived Time Location / / Volume Laterality 06/07/2010 06/07/2010 11:3 9 AM CDT Alfonso Mardid MD LABORATORY Performing Organization Address City/State/ZIP Code Phon e Number COPATH documented in this encounter Visit Diagnoses Not on filedocumented in this encounter
--- OUTSIDE RECORDS SUMMARY | 2022-08-04 08:06 | XMS_ITS | Encounter Summary ---
:1950 Author Organization [place] Address [address] [place] [address] Care Team Providers Name Role Phone Unavailable Primary Care Provider Unavailable Encounter Details Date Type Department Care Team Description 04/27/2011 Hospital Pathology [facility] Wilfredo Valiente MD [facility] [place] [address] (Wo rk) Social History Tobacco Use Types Packs/Day Years Used Date Never Assessed Sex Assigned at Date Recorded Not on file documented as of this encounter Plan of Treatment Not on filedocumented as of this encounter Procedures Procedure Name Priority Date/Time Associated Diagnosis Comme [facility] SURGICAL PATHOLOGY Routine 04/27/2011 12:00 AM Re sults for this EXAM CDT procedure are i n the results section. documented in this encounter Results Surgical pathology exam (04/27/2011 12:00 AM CDT) Component Value Ref Test Analysis Performed At [facility] Range Method Time Signature Copath Report Patient Name: DESHAUN PETTIT MR#: [id number] Specimen #: [id number] Collected: 04/27/2011 Received: 04/27/2011 Reported: 04/28/2011 13:28 Ordering Phy(s): CARMELO VALIENTE Additional Phy(s): BENJAMIN BRANDON SPECIMEN(S): A: Tranverse colon polyp B: Rectal polyp FINAL DIAGNOSIS: A. ??Colon, transverse, biopsy - Fragments of sessile serrat ed adenoma. B. ??Rectum, biopsy - Fragments of hyperplastic polyp. Electronically signed out by: Konstantin Hurtado M.D. CLINICAL HISTORY: History of polyp. GROSS: A. ??The specimen, labeled transverse colon polyp, consist s of two fragments of soft joy tissue measuring 0.2 cm in diameter ea ch. ??The specimen is submitted. B. ??The specimen, labeled rectal polyp, consists of two f ragments of soft joy tissue measuring less than 0.1 cm in diameter each. ??The specimen is submitted in its entirety. ??MGP/kd MICROSCOPIC: A. ??Sections show fragments of sessile serrated adenoma. ?? There is no evidence of dysplasia or malignancy. B. ??Sections show fragments of hyperplastic polyp. ??There is no evidence of adenoma or malignancy. MGP/kd 04-28-11 TESTING LAB LOCATION: [address] ??[phone] COLLECTION SITE: Client: [facility] Location: ENDO (R) Specimen (Source) Anatomical Collection Method Collection Time Re ceived Time Location / / Volume Laterality 04/27/2011 04/27/2011 8:48 AM CDT Carmelo LEE - JOHN LANGLEY Performing Organization Address City/State/ZIP Code Phon e Number COPATH documented in this encounter Visit Diagnoses Not on filedocumented in this encounter
--- OUTSIDE RECORDS SUMMARY | 2022-08-04 08:06 | XMS_ITS | Encounter Summary ---
:1950 Author Organization [place] Address [address] [place] [address] Care Team Providers Name Role Phone Unavailable Primary Care Provider Unavailable Encounter Details Date Type Department Care Team Description 06/08/2010 Historic Results INTERFACED REPORT Unknown, Provider Social History Tobacco Use Types Packs/Day Years Used Date Never Assessed Sex Assigned at Date Recorded Not on file documented as of this encounter Plan of Treatment Not on filedocumented as of this encounter Procedures Procedure Name Priority Date/Time Associated Diagnosis Comme nts PLATELET COUNT Routine 06/08/2010 6:25 AM Results for this CDT procedure are i n the results section . HEMOGLOBIN Routine 06/08/2010 6:25 AM Results f or this CDT procedure are i n the results section . documented in this encounter Results Hemoglobin (06/08/2010 6:25 AM CDT) athologist Signature Hemoglobin 12.3 11.7 - 15.7 MISYS g/dL Specimen (Source) Anatomical Collection Method Collection Time Re ceived Time Location / / Volume Laterality 06/08/2010 6:25 AM 0 CDT Alfonso Brooks MD LAB - BLOOD ORDERABLES Performing Organization Address City/[facility]/ZIP Code Phon e Number MISYS Platelet count (06/08/2010 6:25 AM CDT) athologist Signature Platelet Count 165 150 - 450 MISYS 10e9/L Specimen (Source) Anatomical Collection Method Collection Time Re ceived Time Location / / Volume Laterality 06/08/2010 6:25 AM 0 CDT Provider Unknown LAB - BLOOD ORDERABLES Performing Organization Address City/State/ZIP Code Phon e Number MISYS documented in this encounter Visit Diagnoses Not on filedocumented in this encounter
--- OUTSIDE RECORDS SUMMARY | 2022-08-04 08:06 | XMS_ITS | Encounter Summary ---
:1950 Author Organization [place] Address [address] [place] [address] Care Team Providers Name Role Phone Unavailable Primary Care Provider Unavailable Encounter Details Date Type Department Care Team Description 07/16/2010 Results Only [facility] Alfonso Brooks MD Hospital Results [address] [place], [place] [address] (Wo rk) Social History Tobacco Use Types Packs/Day Years Used Date Never Assessed Sex Assigned at Date Recorded Not on file documented as of this encounter Plan of Treatment Not on filedocumented as of this encounter Procedures Procedure Name Priority Date/Time Associated Diagnosis Comme nts HC UPPER GI & SMALL Routine 07/16/2010 11:27 AM R esults for this INTESTINE CDT procedure are i n the results section. documented in this encounter Results XRAY UPPER GI TRACT + SBS (07/16/2010 11:27 AM CDT) Specimen (Source) Anatomical Collection Method Collection Time Re ceived Time Location / / Volume Laterality 07/16/2010 11:27 AM CDT Impressions RADIOLOGY RESULTS - 07/16/2010 2:50 PM C DT UPPER GASTROINTESTINAL SMALL BOWEL ??Jul 16, 2010 11:27:00 AM ?? HISTORY: Right lower quadrant abdominal pain. Status post right colectomy May 2010. TECHNIQUE: Fluoro time 2.5 minutes. FINDINGS: Esophageal morphology and shayan lity are normal. ??No hiatal hernia. ??No gastroesophageal reflux dem onstrated on this exam. ??The stomach, duodenal bulb and sweep are nor mal. ??Barium is then followed through the small bowel. Flat plate at 2 0 minutes demonstrates contrast extending into the colon. Right partial colectomy noted. Spot images of the ileocecal valve demonstrat e normal appearing valve in the right upper quadrant. The loops are somewhat in this area suggesting possible underlying mass lesion or postoperative change such as seroma. Consider CT for f urther evaluation. IMPRESSION: 1. Normal upper GI. 2. Status post partial colectomy with il eocecal valve in the right upper quadrant, appears normal. 3. Possible underlying mass in the right lower quadrant corresponding to patient's pain. Consider CT for furth er evaluation. Alfonso Brooks MD SPECIAL IMAGING STUDIES Performing Organization Address City/State/ZIP Code Phon e Number RADIOLOGY RESULTS documented in this encounter Visit Diagnoses Not on filedocumented in this encounter
--- OUTSIDE RECORDS SUMMARY | 2022-08-04 08:06 | XMS_ITS | Encounter Summary ---
:1950 Author Organization [facility] Address [address] [place] [address] Care Team Providers Name Role Phone Unavailable Primary Care Provider Unavailable Encounter Details Date Type Department Care Team Description 06/01/2010 Historic Notes INTERFACED REPORT Interface, Transcript onMD Social History Tobacco Use Types Packs/Day Years Used Date Never Assessed Sex Assigned at Date Recorded Not on file documented as of this encounter Progress Notes Interface, Channel Specialist - 02/05/2011 12:09 AM CDT General Information - How to be Addressed Jeanine - Temporary Family none required Living Arrangements - Source of Information patient - Patient Belongings cell phone; clothing; left contact; right contact; glasses - machine repair person #1: Jaylen Pettit - Relationship to patient #1: - Phone 1: [phone] - Cell - Patient's spoken language; Uruguayan or Bilingual communication style Advance Directive - Do you have an No Advanced Health Care Directive? - Can patient name a Yes Surrogate Decision Maker? (Not legally binding) - Surrogate Name: Jaylen Pettit - Surrogate relationship to patient: - Would you like more No information about Advanced Health Care Directives? Health and Illness - Reason for visit as Right side of colon removed Stated by Patient - Expected Length of (days), 3-5 Hospitalization - Services Anticipated none at Discharge - Anticipated Discharge home Disposition - Blood none Avoidance/Restrictio_ ns - Previous Blood no Transfusion Role Relationships/Living Environment - Limitations on none Visitors/Phone Calls/TV - Lives With spouse - Living Arrangements house - Home Accessibility no concerns; tub/shower is not walk in Substance Use - Tobacco Use None. - Caffeine Use Yes - Caffeine Type Coffee - Caffeine Amount < 3 cups/day - Alcohol Use current alcohol use - Alcohol Type beer - Alcohol Frequency daily - Alcohol Amount 1-2 drinks - History of street No drug/inhalant/ medication abuse Review of Systems - Neurological none Conditions/Symptoms - Preferred Pain Scale numerical 0-10 - Pain: Unable to assess with numeric scale Comfort/Acceptable Pain Level (0-10) - Factors that Relieve medications Pain - Expression of Pain vocalization - Chronic Pain no - Normal Sleep/Rest more than 8 hrs/night Schedule - Feel Rested Upon yes Awakening - Problem Sleeping none - Head none Conditions/Symptoms - Eye visual acuity: decreased Conditions/Symptoms - Ear none Conditions/Symptoms - Nose none Conditions/Symptoms - Mouth/Throat/Neck none Conditions/Symptoms - Dental Care yes - Cardiac high cholesterol Conditions/Symptoms - Peripheral/Neurovasc_ none ular Conditions/Symptoms - Respiratory none Conditions/Symptoms - TB Risk no indicators - Diet Regular - Nutrition Risk Screen No risk indicators present - GI colon polyp non-cancerous Conditions/Symptoms - Usual Bowel Pattern daily - Bowel Program no - none Conditions/Symptoms - Bladder Program no - Last Menstrual Period post menopausal - Musculoskeletal osteopenia Conditions/Symptoms - Ambulation 0 - Independent with ambulation - Transferring 0 - Independent with transfers - Toileting 0- Independent with toileting - Bathing 0- Independent with bathing - Dressing 0- Independent with dressing - Eating 0- Independent with eating - Swallowing no swallowing issues reported - Cognition no cognition issues reported - Communication/speech no speech or language problems - Fall history within Yes last six months - Number of times 1 - Which of the above none functional risks had a recent onset or change? - Skin none reported Conditions/Symptoms - Endocrine none Conditions/Symptoms - Hematological none Conditions/Symptoms - Immune /Infections none - Influenza vaccine N/A; Not currently flu season (02/18 - 08/19) - Pneumococcal Vaccine never immunized - Pneumococcal Vaccine none of the above indications Indications - offer year round (Check all that apply) - Recent Exposure to none; herpes zoster (shingles) Communicable Disease - Recent Travel yes, [place] - Communicable Disease none History - Oncology none Conditions/Symptoms - Mental Health none Conditions/Symptoms - Recently Experienced none Feelings/Symptoms Skin Inspection - Skin Inspection: Exceptions to WDL noted on body image and/or text box Body Image with Right Left: - Image Description: 4 lap sites on abdomen with drsgs CDI Coping Stress/Abuse - Major none Change/Loss/Stressor - QUESTION TO PATIENT: No Has a member of your family or a partner(now or in the past) intimidated, hurt, manipulated, or controlled you in any way? - QUESTION TO Yes PATIENT/CAREGIVER: Do you feel safe going back to the place where you are living? - NURSE OBSERVATION: Is No there reason to believe there has been maltreatment of a vulnerable adult (ie. Physical/Sexual/Emot_ ioanl abuse, self neglect, lack of adequate food, alf, medical care, or financial exploitation)? Values/Beliefs/Spiritual Care - C: Community: In no thank you support of your spiritual health, is there someone we may contact for you? (identify all that apply) Learning Assessment - Factors Influencing no factors identified Readiness to Learn - Factors that Impact none Ability to Learn - Learning Preferences individual instruction; verbal instruction; written material - Cultural none Considerations - Developmental none Considerations - Cheondoism none Considerations Mutuality/Individual Preferences - What information nothing would help us give you more personalized care? Signatures IDANIA FOWLER (STEW)[Signed 19:39] Authored: General Information, Review of Systems Debo Gee (RN)[Signed 20:10] Authored: Review of Systems, Skin Inspection, Coping Stress/Abuse VINCENT ARIAS (RN)[Signed 09:12] Authored: General Information, Advance Directive, Health and Illness, Role Relationships/Living Environment, Substance Use, Review of Systems, Coping Stress/Abuse, Values/Beliefs/Spiritual Care, Learning Assessment, Mutuality/Individual Preferences documented in this encounter Plan of Treatment Not on filedocumented as of this encounter Visit Diagnoses Not on filedocumented in this encounter
--- OUTSIDE RECORDS SUMMARY | 2022-08-04 08:06 | XMS_ITS | Encounter Summary ---
:1950 Author Organization [facility] Address [address] [place] [address] Care Team Providers Name Role Phone Unavailable Primary Care Provider Unavailable Encounter Details Date Type Department Care Team Description 07/22/2010 Results Only [facility] Alfonso Brooks MD Hospital Results [address] [place], [place] [address] (Wo rk) Social History Tobacco Use Types Packs/Day Years Used Date Never Assessed Sex Assigned at Date Recorded Not on file documented as of this encounter Plan of Treatment Not on filedocumented as of this encounter Procedures Procedure Name Priority Date/Time Associated Diagnosis Comme nts CT SCAN Routine 07/22/2010 2:34 PM Results f or this ABDOMEN/PELVIS CDT procedure are in the results section. documented in this encounter Results CT SCAN ABDOMEN/PELVIS (07/22/2010 2:34 PM CDT) Specimen (Source) Anatomical Collection Method Collection Time Re ceived Time Location / / Volume Laterality 07/22/2010 2:34 PM CDT Impressions RADIOLOGY RESULTS - 07/23/2010 8:[address] ABDOMEN/PELVIS WITH CONTRAST ??Jul 22, 2010 2:34:00 PM HISTORY: Right lower quadrant pain. Stat us post right hemicolectomy. COMPARISON: ??Upper GI and small bowel f ollow-through 07/16/2010. TECHNIQUE: Axial images from the lung ba ses to the symphysis are performed with additional coronal reform atted images. 100 mL of Optiray ??350 ??are given intravenously. Oral contrast is also given. FINDINGS: The lung bases are clear. Abdomen: A very low-attenuation lesion i s present in the lateral mid right kidney on image 28 series 2 measur ing 1.3 cm in diameter. 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 The upper abdominal organs are otherwise unremarkable. There is no hydronephrosis. Focal inflammation is evident in the region of the small bowel to colon anastomosis in the right lateral abdomen . No small bowel dilatation is present to indicate obstruction; however , there is significant narrowing within the small bowel just pr oximal to the anastomosis on image 43. This is in the area described on prior small bowel follow-through performed 07/16/2010. Que stion whether patient has a history of inflammatory bowel disease as a Crohn's exacerbation could appear similar. If patient has a history of colonic malignancy, recurrent neoplasm is also in the differ ential. Small mesenteric and retroperitoneal lymph nodes are present, but none are significantly enlarged by CT criteria. No other simila r findings are evident throughout the small bowel or colon. Pelvis: ??The bladder, uterus and adnexa l regions are within normal limits. There is no free pelvic fluid. N o enlarged pelvic lymph nodes are appreciated. Degenerative spine santacruz ges are present. IMPRESSION: 1. Focal inflammation surrounding small bowel loops just proximal to the right abdominal anastomosis. No evid ence of bowel obstruction. Findings are compatible with recent smal l bowel follow through performed 07/16/2010. Etiologies such as inflammatory bowel disease or recurrent neoplasm in the correct clinic al setting are possible. Correlate with patient's history and soha son for previous right colectomy. 2. 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 U pper abdominal organs are otherwise unremarkable. No enlarged lymp h nodes. Alfonso Brooks MD SPECIAL IMAGING STUDIES Performing Organization Address City/State/ZIP Code Phon e Number RADIOLOGY RESULTS documented in this encounter Visit Diagnoses Not on filedocumented in this encounter
--- OUTSIDE RECORDS SUMMARY | 2022-08-04 08:06 | XMS_ITS | Encounter Summary ---
:1950 Author Organization [facility] Address [address] [place] [address] Care Team Providers Name Role Phone Unavailable Primary Care Provider Unavailable Encounter Details Date Type Department Care Team Description 06/16/2004 Results Only Maci Peterson MD [address] [place], [place] [address] (Wo rk) Social History Tobacco Use Types Packs/Day Years Used Date Never Assessed Sex Assigned at Date Recorded Not on file documented as of this encounter Plan of Treatment Not on filedocumented as of this encounter Procedures Procedure Name Priority Date/Time Associated Diagnosis Comme nts C MAMMOGRAM, Routine 06/16/2004 12:15 PM Results for this SCREENING CDT procedure are i n the results section. documented in this encounter Results MAMMOGRAM, SCREENING (06/16/2004 12:15 PM CDT) Specimen (Source) Anatomical Collection Method Collection Time Re ceived Time Location / / Volume Laterality 06/16/2004 12:15 PM CDT Impressions Pacs, Data Conversion - 06/18/2004 10:51 AM CDT EXAM: Bilateral analog screening Mammogr aphy with computer-aided detection. COMPARISON: 04/30/03. HISTORY: No current breast complaints. FINDINGS: Tissue density is scattered fi broglandular densities. Benign-appearing calcifications within b oth breasts are again noted. No new dominant mass lesions or abnormal microcalcifications are seen. IMPRESSION: BI-RADS 1. ??NEGATIVE. RECOMMENDATION: Routine yearly mammogram . I have personally reviewed the image and initial interpretation and agree with the findings. Maci Peterson MD SPECIAL IMAGING STUDIES documented in this encounter Visit Diagnoses Not on filedocumented in this encounter
--- OUTSIDE RECORDS SUMMARY | 2022-08-04 08:06 | XMS_ITS | Encounter Summary ---
:1950 Author Organization [facility] Address [address] [place] [address] Care Team Providers Name Role Phone Unavailable Primary Care Provider Unavailable Encounter Details Date Type Department Care Team Description 11/27/2007 Results Only [facility] Results Social History Tobacco Use Types Packs/Day Years Used Date Never Assessed Sex Assigned at Date Recorded Not on file documented as of this encounter Plan of Treatment Not on filedocumented as of this encounter Procedures Procedure Name Priority Date/Time Associated Diagnosis Comme [facility] MAMMOGRAM, Routine 11/27/2007 9:41 AM Results for this SCREENING BILATERAL SHOP HELPER procedur e are in the results section. documented in this encounter Results MAMMOGRAM, SCREENING (11/27/2007 9:41 AM SHOP HELPER) Specimen (Source) Anatomical Collection Method Collection Time Re ceived Time Location / / Volume Laterality 11/27/2007 9:41 AM SHOP HELPER Impressions RADIOLOGY RESULTS - 11/28/2007 3:[address] EXAM: BILATERAL SCREENING MAMMOGRAPHY HISTORY/COMPARISON: ??Routine screening. 12/17/02, 11/23/06 Breast parenchyma: Heterogeneous. FINDINGS: Negative. IMPRESSION: Category 1. Negative. [facility] SPECIAL IMAGING STUDIES Performing Organization Address City/State/ZIP Code Phon e Number RADIOLOGY RESULTS documented in this encounter Visit Diagnoses Not on filedocumented in this encounter
--- OUTSIDE RECORDS SUMMARY | 2022-08-04 08:06 | XMS_ITS | Encounter Summary ---
:1950 Author Organization [facility] Address [address] [place] [address] Care Team Providers Name Role Phone Unavailable Primary Care Provider Unavailable Encounter Details Date Type Department Care Team Description 06/07/2010 Historic Notes INTERFACED REPORT Interface, Transcript onMD Social History Tobacco Use Types Packs/Day Years Used Date Never Assessed Sex Assigned at Date Recorded Not on file documented as of this encounter Progress Notes Interface, Sole Leveler Machine - 02/04/2011 11:43 PM CDT Patient Status - Diagnosis/Procedure Laparoscopic assisted right hemicolectomy - Physical status Stable (s/s of potential complications absent or manageable) - Psychosocial status Stable Discharge Planning - Discharge From: [facility] - Patient Care Unit: 5th floor - PCU - Discharge To: Home/Alternative home - Method of discharge: Wheel Chair - Transportation: Private Discharge Information - Valuables returned Valuables returned - Discharge information Discharge instructions reviewed with pt/family/so - Accompanied by Spouse - Mode of Travel Wheelchair Medications and Prescriptions - Medications and Prescriptions are needed Prescriptions Support Services - Is home care No recommended? - Supplies sent/ordered No - Equipment No sent/ordered - Other Services No arranged Special Care Needs and Instructions - Activity It's ok to shower but no tub baths until your Instructions: incision is completely healed (in about 4-6 weeks). No lifting more than about 10 pounds and nothing strenuous for 4-6 weeks. - Symptoms/Problems to 1. Fever over 101 degrees, shaking, or chills. look for at home- 2. Increased swelling, bleeding, redness, or call the physician drainage from incision site. about: 3. No BM within 3 days after trying over the counter remedies or diarrhea lasting more than 3 days. 4. Persistent nausea or vomiting lasting more than 24 hours. 5. Increased and persistent pain not controlled with oral pain medications. - Who patient should Dr. Brooks call: - Phone number of [facility] patient should call: - Additional Leave the steri strips on your incision until instructions for they fall off on their own in 1-2 weeks. wound care: Follow Up Care - Physician/clinician Dr. Brooks name: - - When to see 10 - 14 days physician/clinician: Debo Craven (RN)[Signed 18:23] Authored: Patient Status, Discharge Planning, Discharge Information, Medications and Prescriptions, Support Services, Special Care Needs and Instructions, Follow Up Care Kalpesh Barrientos (RN)[Signed 09:42] Authored: Discharge Planning, Discharge Information, Support Services, Follow Up Care BRITANY RAZA (RN)[Signed 21:34] Authored: Special Care Needs and Instructions documented in this encounter Plan of Treatment Not on filedocumented as of this encounter Visit Diagnoses Not on filedocumented in this encounter
--- OUTSIDE RECORDS SUMMARY | 2022-08-04 08:06 | XMS_ITS | Encounter Summary ---
:1950 Author Organization [facility] Address [address] [place] [address] Care Team Providers Name Role Phone Unavailable Primary Care Provider Unavailable Encounter Details Date Type Department Care Team Description 04/21/2010 Hospital Pathology [facility] Wilfredo Valiente MD [facility] [place] [address] (Wo rk) Social History Tobacco Use Types Packs/Day Years Used Date Never Assessed Sex Assigned at Date Recorded Not on file documented as of this encounter Plan of Treatment Not on filedocumented as of this encounter Procedures Procedure Name Priority Date/Time Associated Diagnosis Comme nts CL AFF SURGICAL Routine 04/21/2010 12:00 AM Resul ts for this PATHOLOGY CDT procedure are i n the results section. documented in this encounter Results Hospital - SURGICAL PATHOLOGY (04/21/2010 12:00 AM CDT) Component Value Ref Test Analysis Performed At [facility] Range Method Time Signature Copath Report Patient Name: DESHAUN PETTIT MR#: [id number] Specimen #: [id number] Collected: 04/21/2010 Received: 04/21/2010 Reported: 04/22/2010 14:24 Ordering Phy(s): CARMELO VALIENTE Additional Phy(s): MARINA MENSAH SPECIMEN(S): A: Transverse colon polyp B: Ascending colon polyp C: Ascending colon polyp FINAL DIAGNOSIS: A. ??Transverse colon polyp, biopsy/polypectomy - Sessile se rrated adenoma. ??No evidence of high grade dysplasia or malignancy . B. ??Ascending colon polyp, biopsy/polypectomy - Tangentiall y oriented serrated polyp, favor sessile serrated adenoma. ??No evidenc e of high grade dysplasia or malignancy. C. ??Ascending colon, polyp, biopsy - Multiple fragments of serrated polyp consistent with sessile serrated adenoma. ??No evidenc e of high grade dysplasia or malignancy. Electronically signed out by: Chan Call M.D. CLINICAL HISTORY: Colon polyps. GROSS: A. ??The specimen is labeled transverse polyp and it consi sts of a 0.9 x 0.4 x 0.5 cm pink-joy fragment of tissue. ??Base inked. Bi sected and entirely submitted. B. ??The specimen is labeled ascending polyp and it consis ts of a 0.2 x 0.1 cm pink-joy fragment of material. ??Entirely submitted. C. ??The specimen is labeled ascending polyp and it consis ts of four friable pink-joy fragments of tissue aggregating to 0.3 x 0. 2 x 0.1 cm. Entirely submitted. ??ED/tory MICROSCOPIC: A. ??Microscopic evaluation was performed. B. ??Sections show a tangentially oriented serrated polyp. ? ?The bases of the crypts are not well visualized. ??The differential inclu morgna hyperplastic polyp and sessile serrated adenoma. ??Given the right sided location of the polyp and focal slight crypt dilatation, a s essile serrated adenoma is favored. C. ??The serrated polyp fragments are tangentially oriented. ??Areas of crypt dilatation and focal branching are present consistent with sessile serrated adenoma. ??Given the reported endoscopic size of 20 mm, clinical correlation is required to determine if these samples are re presentative of the entire lesion. ED/tory 04-22-10 TESTING LAB LOCATION: [address] ??[id number] COLLECTION SITE: Client: [facility] Location: ENDO (R) Specimen (Source) Anatomical Collection Method Collection Time Re ceived Time Location / / Volume Laterality 04/21/2010 04/21/2010 11:3 9 AM CDT Carmelo Valiente MD LABORATORY Performing Organization Address City/State/ZIP Code Phon e Number COPATH documented in this encounter Visit Diagnoses Not on filedocumented in this encounter
--- OUTSIDE RECORDS SUMMARY | 2022-08-04 08:06 | XMS_ITS | Encounter Summary ---
:1950 Author Organization [facility] Address [address] [place] [address] Care Team Providers Name Role Phone Unavailable Primary Care Provider Unavailable Encounter Details Date Type Department Care Team Description 04/27/2011 Results Only INTERFACED REPORT Corazon Oreilly MD [facility] [address] [place], [place] [address] (Wo rk) Social History Tobacco Use Types Packs/Day Years Used Date Never Assessed Sex Assigned at Date Recorded Not on file documented as of this encounter Plan of Treatment Not on filedocumented as of this encounter Procedures Procedure Name Priority Date/Time Associated Diagnosis Comme nts COLONOSCOPY Routine 04/27/2011 7:13 AM Results f or this CDT procedure are i n the results section . documented in this encounter Results COLONOSCOPY (04/27/2011 7:13 AM CDT) [facility] Method Time Signature COLONOSCOPY [facility] RAD IOLOGY RESULTS Patient Name: Jeanine Pettit ? Procedure Date: 04/27/2011 7:13:34 AM ? Date of : 1950 ? Admit Type: Outpatient ? Age: 60 ? Gender: Female ? Attending MD: Trae Rodriguez MD ? Procedure: ?Colonoscopy Indications: ?Personal histor y of colonic polyps - sessile ?serrated adenoma of r ight colon. Providers: ?Trae Kay MD Referring MD: ? Janice Oreilly MD Medicines: ?Fentanyl 100 micrograms IV, Midazolam [...] the ? transverse colon. The polyp was 8 mm in s ize. This was biopsied with a ? hot forceps for histo logy. A benign appearing sessile polyp was found in ? the rectum. The polyp was 2 mm in size. This was bi opsied with a hot ? forceps for histology . A few small-mouthed diverticula were found in the ? sigmoid colon. The descending colon, sple cari flexure, hepatic flexure, ? ascending colon, ileum and anasto mosis appeared normal. The retroflexed ? view of the anal verge was normal and showed no anal or rectal ? abnormalities. The terminal ileum appeared normal. ? Impression: ? - One 8 mm polyp in the transverse colon. Tissue ?was removed. This was biopsied. ?- One 2 mm polyp in the rectum (benign appearing). ?Tissue wa s removed. This was biopsied. ?- Diverticulosis sigm oid colon. ?- The descending colon, splenic flexure, hepatic ?flexure, ascending colon, terminal ileum and ?colonic anastomosis a re normal. ?- The examined portion of the ileum was normal. Recommendation: ? - Discharge patient to home ( ambulatory). ?- Telephone endoscopist for pathology results in 1 ?week. Assuming a benign report then recolonoscopy ?in 2 yrs. ?- Return to primary care physician PRN. ? R Eliza Allred Trae Kay MD Signed Date: 04/27/2011 8:13:38 AM Number of Addenda: 0 I was physically present for the entire viewing portion of t he exam. Note Initiated On: 04/27/2011 7:13:34 AM Scope Withdrawal Time: 0 hours 0 minutes 0 seconds Total Procedure Duration: 0 hours 19 minutes 18 seconds Specimen (Source) Anatomical Collection Method Collection Time Re ceived Time Location / / Volume Laterality 04/27/2011 7:13 AM CDT Janice Oreilly MD PROCEDURES Performing Organization Address City/State/ZIP Code Phon e Number RADIOLOGY RESULTS documented in this encounter Visit Diagnoses Not on filedocumented in this encounter
--- OUTSIDE RECORDS SUMMARY | 2022-08-04 08:06 | XMS_ITS | Encounter Summary ---
:1950 Author Organization [place] Address [address] [place] [address] Care Team Providers Name Role Phone Unavailable Primary Care Provider Unavailable Encounter Details Date Type Department Care Team Description 11/23/2006 Results Only [facility] Results Social History Tobacco Use Types Packs/Day Years Used Date Never Assessed Sex Assigned at Date Recorded Not on file documented as of this encounter Plan of Treatment Not on filedocumented as of this encounter Procedures Procedure Name Priority Date/Time Associated Diagnosis Comme Merged with [facility] MAMMOGRAM, Routine 11/23/2006 9:26 AM Results for this SCREENING BILATERAL SENIOR INSTRUMENTATION ENGINEER procedur e are in the results section. documented in this encounter Results MAMMOGRAM, SCREENING (11/23/2006 9:26 AM SENIOR INSTRUMENTATION ENGINEER) Specimen (Source) Anatomical Collection Method Collection Time Re ceived Time Location / / Volume Laterality 11/23/2006 9:26 AM SENIOR INSTRUMENTATION ENGINEER Impressions RADIOLOGY RESULTS - 11/24/2006 2:[address] Exam: Bilateral screening mammography History/Comparison: ??ROUTINE 12-07-05, Breast parenchyma: heterogeneously dense Findings: Negative. . ?? Impression: Category 1. Negative. This exam was evaluated with the assista nce of computer aided detection ??(CAD). [facility] [place] SPECIAL IMAGING STUDIES Performing Organization Address City/State/ZIP Code Phon e Number RADIOLOGY RESULTS documented in this encounter Visit Diagnoses Not on filedocumented in this encounter
--- OUTSIDE RECORDS SUMMARY | 2022-08-04 08:06 | XMS_ITS | Encounter Summary ---
:1950 Author Organization [place] Address [address] [place] [address] Care Team Providers Name Role Phone Unavailable Primary Care Provider Unavailable Encounter Details Date Type Department Care Team Description 06/11/2010 Historic Results INTERFACED REPORT Unknown, Provider Social History Tobacco Use Types Packs/Day Years Used Date Never Assessed Sex Assigned at Date Recorded Not on file documented as of this encounter Plan of Treatment Not on filedocumented as of this encounter Procedures Procedure Name Priority Date/Time Associated Diagnosis Comme nts PLATELET COUNT Routine 06/11/2010 7:09 AM Results for this CDT procedure are i n the results section . documented in this encounter Results Platelet count (06/11/2010 7:09 AM CDT) P athologist Signature Platelet Count 176 150 - 450 [place] 10e9/L Specimen (Source) Anatomical Collection Method Collection Time Re ceived Time Location / / Volume Laterality 06/11/2010 7:09 AM 0 CDT Provider Unknown LAB - BLOOD ORDERABLES Performing Organization Address City/State/ZIP Code Phon e Number MIS[place] documented in this encounter Visit Diagnoses Not on filedocumented in this encounter
--- OUTSIDE RECORDS SUMMARY | 2022-08-04 08:06 | XMS_ITS | Encounter Summary ---
:1950 Author Organization [place] Address [address] [place] [address] Care Team Providers Name Role Phone Unavailable Primary Care Provider Unavailable Encounter Details Date Type Department Care Team Description 12/12/2008 Results Only [facility] Anastasia Salas MD Hospital Results [address] [place], [place] [address] (Wo rk) Social History Tobacco Use Types Packs/Day Years Used Date Never Assessed Sex Assigned at Date Recorded Not on file documented as of this encounter Plan of Treatment Not on filedocumented as of this encounter Procedures Procedure Name Priority Date/Time Associated Diagnosis Comme [facility] MAMMO SCREEN Routine 12/12/2008 9:19 AM Result s for this BILATATERAL, INCL ENGRAVING PATTERNMAKER procedure are in CAD WHEN PERF the results section. documented in this encounter Results SCREENING MAMMOGRAPHY DIGITAL (BILAT) (12/12/2008 9:19 AM ENGRAVING PATTERNMAKER) Specimen (Source) Anatomical Collection Method Collection Time Re ceived Time Location / / Volume Laterality 12/12/2008 9:19 AM ENGRAVING PATTERNMAKER Impressions RADIOLOGY RESULTS - 12/12/2008 9:[address] SCREENING MAMMOGRAM, BILATERAL, DIGITAL w/ CAD BREAST SYMPTOMS/COMPARISON:Routine. ??11-27-07, 12-07-05 BREAST PARENCHYMAL PATTERN: Heterogeneou sly dense. COMMENTS: Negative. IMPRESSION: BI-RADS 1, NEGATIVE. Anastasia Salas MD SPECIAL IMAGING STUDIES Performing Organization Address City/State/ZIP Code Phon e Number RADIOLOGY RESULTS documented in this encounter Visit Diagnoses Not on filedocumented in this encounter
--- OUTSIDE RECORDS SUMMARY | 2022-08-04 08:06 | XMS_ITS | Encounter Summary ---
:1950 Author Organization [place] Address [address] [place] [address] Care Team Providers Name Role Phone Unavailable Primary Care Provider Unavailable Encounter Details Date Type Department Care Team Description 02/06/2006 Historic Results INTERFACED REPORT Carmelo [place] [address] (Wo rk) Social History Tobacco Use Types Packs/Day Years Used Date Never Assessed Sex Assigned at Date Recorded Not on file documented as of this encounter Plan of Treatment Not on filedocumented as of this encounter Procedures Procedure Name Priority Date/Time Associated Diagnosis Comme nts HISTOPATHOLOGY Routine 02/06/2006 12:00 AM Result s for this FISCAL ACCOUNTANT procedure are i n the results section . documented in this encounter Results Histopathology (02/06/2006 12:00 AM FISCAL ACCOUNTANT) Component Value Ref Test Analysis Performed At [facility] Range Method Time Signature Copath Report CASE: [id number] ^ COPATH Patient Name: DESHAUN PETTIT MR#: [id number] Specimen #: [id number] Collected: 02/06/2006 Received: 02/06/2006 Reported: 02/07/2006 15:55 Ordering Phy(s): CARMELO VALIENTE Additional Phy(s): LUIGI ALTAMIRANO SPECIMEN(S): A: Transverse colon polyp B: Rectal polyp FINAL DIAGNOSIS: A. ?Colon, transverse, polypectomy - Sessile serrated adenoma. B. ?Rectum, polypectomy - Hyperplastic polyp. COMMENT: Colonoscopy report was reviewed. Electronically signed out by: Konstantin Hurtado M.D. CLINICAL HISTORY: Routine. GROSS: A. ?The specimen, labeled transverse col on polyp, consists of a 0.5 cm in diameter sessile pink to joy soft polypoid fragm ent of tissue. ??The surgical margin is identified. ??The polyp is bisected and submitted in its entirety. B. ?The specimen, labeled rectal polyp biops y, consists of a single fragment of joy to pink soft tissue measuring 0.1 cm in diameter. The specimen is submitted in its entirety. ??MGP/sg MICROSCOPIC: A. ?Sections show a sessile serrated adenoma. ? ?It is characterized by abnormal architecture and proliferation. ?? No dysplasia or malignancy are present. B. ?Sections show a hyperplastic polyp. ??No ab normal proliferation, architectural distortion, adenomatous epithel ium or malignancy are present. MGP/sg 02-07-06 TESTING LAB LOCATION: [address] ??[address] COLLECTION SITE: Client: [facility] Location: ENDO (R) Specimen (Source) Anatomical Collection Method Collection Time Re ceived Time Location / / Volume Laterality 02/06/2006 02/07/2006 3:56 PM FISCAL ACCOUNTANT Carmelo Valiente MD LAB - [place] SPECIAL DIAG OR DERABLES Performing Organization Address City/State/ZIP Code Phon e Number [place] documented in this encounter Visit Diagnoses Not on filedocumented in this encounter
--- NOTE | 2022-08-04 08:15 | CRLHL7_ITS ---
For Patients: As a result of the Century Cures Act, medical imaging exams and procedure reports are released immediately into your electronic medical record. You may view this report before your referring provider. If you have questions, please contact your health care provider. BILATERAL SCREENING MAMMOGRAM WITH COMPUTER-AIDED DETECTION AND TOMOSYNTHESIS TECHNIQUE: CC and MLO views were obtained. These mammographic images have been obtained using full-field digital technique. These mammographic images were interpreted with the benefit of computer-aided detection. Breast Tomosynthesis was used in this interpretation. COMPARISON FILM: 08/03/21, 07/28/20, 07/18/19. FINDINGS: There are scattered areas of fibroglandular density IMPRESSION: There is no radiographic evidence for malignancy. ASSESSMENT: BI-RADS Category 1: Negative RECOMMENDATION: Routine screening mammogram in 1 year. A lay language report of this examination will be provided to the patient. Brandon Stallings M.D. Diagnostic Radiologist [email or web address] TIKA/Dictated by: Brandon Stallings MD @ 08/04/2022 9:03:00 AM (Electronically Signed)
== END 2022-08-04 08:01 | disposition home or self-care (01) ==
LOC: MAMMO 08:03
PROVIDERS: PCP Physician Assistant Medical; Visit Provider Physician Assistant Medical
DX: Z12.31 Encounter for screening mammogram for malignant neoplasm of breast (principal)
CPT/HCPCS: 77063; 77067

== ENCOUNTER 2022-08-10 07:21 | Outpatient (CLI) | payer MEDICARE, BC, SELFPAY ==
--- OUTSIDE RECORDS SUMMARY | 2022-08-10 07:25 | XMS_ITS | Encounter Summary ---
:1950 Author Organization [place] Address [address] [place], [place] [address]. [place] [address] Care Team Providers Name Role Phone Janice Oreilly MD Primary Care Provider Clinic, [facility] Encounter Details Date Type Department Care Team Description 05/13/2021 Orders Only [facility] Taras Redman for screening Clinic Amber Baird MD for other viral [id number] [place] [address] [place] diseases [place], [place] GASTROINTESTINAL [address] [phone] [place], [place] [phone] Social History Tobacco Use Types Packs/Day Years [...] (07/09/2021 9:58 AM CDT) Analysis Performed At [facility] Time Signature SARS CoV2 PCR Negative [...] the kristine SARS-CoV-2 assay on the kristine [employer] System. This test should be ordered for [...] This waldemar t was validated by the [facility] Infectious Diseases Diag nostic Laboratory. This laboratory is certified under the [facility] Laboratory Improvement Amendments of 1988 (CLIA-88) as qualifie d to perform high and/or moderate complexity laboratory testing. Taras Redman MD LAB - MICRO GENERAL ORDERABL ES Performing Organization Address City/State/ZIP Code Phon e Number [facility] [place] [address] Diag. Lab [address] [facility] Room [address]297 [facility] Infectious [place], [place] [phone] Diseases Diagnostic [phone], [facility] Lab (IDDL) [address] [facility], Room [address]297 documented in this encounter Visit Diagnoses Diagnosis Encounter for screening for other viral diseases documented in this encounter Care Teams Counter Molder Relationship Specialty Start Date End Date Janice Oreilly MD PCP - General Family Practice 05/14/14 06/15/21 [facility] [address] [place] [address] Clinic, [facility] 06/01/17 [facility] [address] [place], [place] [phone] documented as of this encounter
--- OUTSIDE RECORDS SUMMARY | 2022-08-10 07:25 | XMS_ITS | Encounter Summary ---
:1950 Author Organization [place] Address [address] [place] [address]. [place] [address] Care Team Providers Name Role Phone Clinic, [facility] Tena Romero PA-C Primary Care Provider Reason for Visit Auth/Cert Specialty Diagnoses / Procedures Referred By Contact Refer red To Contact Gastroenterology Diagnoses Screen for colon cancer Screen for colon cancer [Z12.11] Endoscopy Procedures [facility] COLONOSCOPY W/WO BRUSH/WASH COLONOSCOPY [address] [place] [address] Phone: Fax: Referral ID Status Reason Start Date Expiration Date Visits Requ ested Visits Authorized [id number] 1 1 Encounter Details Date Type Department Care Team Description 07/13/2021 Hospital Encounter [facility] Taras Redman , Endoscopy Dayanna MILLER [address] [place], [place] GASTROINTESTINAL [address] [address] [phone] [place], [place] [phone] (Wo rk) Social History Tobacco Use Types [...] in this encounter Discharge Instructions Discharge InstructionsCelina aCrroll RN - 07/13/2021 9:32 AM CDT Images [...] Ask yourdoctor about supplemental fiber products. ?? [phone] [place] [address]. All rights reserved. This information is not [...] needed, you may be told to take comq-yqf-oeihsfa stool softeners. To help relieve pain, antispasmodic [...] the option of having surgery with you. [place] [facility] Health Help keep your colon healthy with a diet that includes plenty of high-fiber fruits, vegetables, and whole grains. Drink plenty of liquids like water and juice. Your doctor may also recommend avoiding seeds and nuts. ?? [phone] [facility], [address] [place] [address]. All rights reserved. This information is not intended as a substitute for professional medical care. Always follow your healthcare professional's instructions. documented in this encounter Medications at Time of Discharge Medication Sig Dispensed Refills Start Date End Date ASPIRIN PO Take 81 mg by mouth 0 daily calcium carbonate (OS-GRABIEL Take 2 tablets by 0 500 MG [place]. [place]) 1250 MG mouth daily tablet Multiple [...] Reported, Patient calcium carbonate (OS-GRABIEL 500 MG [place]. CA) 1250 MG tablet Take 2 tablets [...] encounter Miscellaneous Notes Result Encounter Note - Traas Redman MD - 07/13/2021 10:01 AM CDT [...] Component Value Ref Test Analysis Performed At [facility] Method Time Signature Case Report Surgical Pathology Report ? Case: [id number] ? 07/14/2021 Authorizing Provider: ??Taras Aargon MD ?Collected: ? 07/13/2021 09:17 AM ? 9:43 AM CDT LABORATO RY [facility] [place] ?Received: ?07/13/2021 10:17 AM ? [facility] [place] ? Pathologist: ? Melanie Kee, PhD ? [...] CDT LABORATORY this testing was completed at [facility] Specimen Anatomical Collection Method Collection Time Receive d Time (Source) Location / / Volume Laterality Biopsy STRUCTURE OF 07/13/2021 9:17 AM 1 DISTAL PORTION OF CDT 10:17 AM C DT ILEUM / Unknown Taras Redman MD LAB - [facility] Performing Organization Address City/State/ZIP Code [place] [phone] Care Lab [address] Lab (1st floor, no room number) COLONOSCOPY (07/13/2021 8:56 AM CDT) [facility] Method Time Signature COLONOSCOPY [facility] RADIOLOGY RESULTS Patient Name: Jeanine Pettit ?Procedure D ate: 07/13/2021 8:56 AM ? Accou nt Number: [id number] Date of : 1950 ? Admit Type: [...] and ?oxygen saturations were monitored continuously. The ?[employer] Adult Colonoscope, Model # CF-[id number], ?[place] # 222, SN # [id number] was introduced through ?the anus and advanced [...] Procedure Code(s): ? --- Professional --- ? 95970, Colonoscopy, flexible; with biopsy, single or multiple Diagnosis Code(s): ? --- Professional --- ? Z98.0, Intestinal bypass and anastomosis status ? K63.3, Ulcer of intestine ? Z86.010, Personal history of colonic polyps CPT copyright 2019 [employer]. All rights reserved. The codes documented in this report are prelimin hallie and upon analyst business analysis review may be revised to meet current compliance requirements. Electronically signed by Taras Redman MD Taras Redman MD 07/13/2021 9:32:26 AM I was physically present for the entire viewing portion of t he exam. Taras Redman MD Number of Addenda: 0 Note Initiated On: 07/13/2021 8:56 AM MRN: ?[id number] Procedure Date: ? 07/13/2021 8:56:33 AM Scope [...] on Mon07/13/21 at 0810, For 1 dose, [place] throat with 1-4 spr ays 5 minutes [...] on Mon07/13/21 at 0810, For 1 dose, [place] throat with 1-4 sprays 5 minutes prior [...] provider.
documented in this encounter Care Teams Breakdown Person Relationship Specialty Start Date End Date Tena Romero PA-C PCP - General 06/16/21 [facility] [address] [place] [id number] Clinic, [facility] 06/01/[address] [place] [address] [place], [place] [phone] documented as of this encounter
--- OUTSIDE RECORDS SUMMARY | 2022-08-10 07:25 | XMS_ITS | Encounter Summary ---
:1950 Author Organization [place] Address [address] [place] [address] Care Team Providers Name Role Phone [facility] Unavailable Tena Romero PA-C Primary Care Provider [...] on filedocumented in this encounter Care Teams Real Estate Recruiter Relationship Specialty Start Date End Date Tena Romero PA-C PCP - General 06/16/21 [facility] [place] [address] [place], [place] [phone] [facility] 06/01/17 [address] [place] [address] documented as of this encounter
--- OUTSIDE RECORDS SUMMARY | 2022-08-10 07:25 | XMS_ITS | Clinical Summary ---
:1950 Author Organization [place] Address [address] [place] [address]. [place] [address] Care Team Providers Name Role Phone Clinic, [facility] Unavailable Tena Romero PA-C Primary Care [...] tablets by 0 Active (OS-GRABIEL 500 MG [place]. mouth daily [place]) 1250 MG tablet Family [...] IMMUNIZATION 1976 (1 - Tdap) LIPID 1996 LUNG CANCER SCREENING 2001 MAMMO SCREENING 12/15/2011 12/15/2009, 12/12/2008, 11/27/2007, Additional [...] Address T ype Group Dates MEDICARE MEDICARE [id number] 2018-Prese [phone] ATTN MICHEL [place] Medicare nt 40 [address] [place] [address] [place] [id number] 2020-Prese [phone] [address] [address] Indemnity nt [address] [place] [address] Care Teams Fire Extinguisher Installer Relationship Specialty Start Date End Date Tena Romero PA-C PCP - General 06/16/21 [facility] [address] [place] [address] Clinic, [facility] 06/01/17 [address] [place] [address]
--- OUTSIDE RECORDS SUMMARY | 2022-08-10 07:25 | XMS_ITS | Encounter Summary ---
:1950 Author Organization [place] Address [address] [place] [address]. [place] [address] Care Team Providers Name Role Phone Clinic, [facility] Unavailable Tena Romero PA-C Primary Care Provider Encounter Details Date Type Department Care Team Description 07/09/[address] [facility] Taras Redman, Encounter for screening [facility] for other viral diseases [address] [place], [place] [phone] GASTROINTESTINAL [phone] [place] [phone] (Wo rk) Social History Tobacco Use Types [...] the kristine SARS-CoV-2 assay on the kristine [employer] System. This test should be ordered for [...] This waldemar t was validated by the [facility] Infectious Diseases Diag nostic Laboratory. This laboratory is certified under the [facility] Laboratory Improvement Amendments of 1988 (CLIA-88) as qualifie d to perform high and/or moderate complexity laboratory testing. Taras Redman MD LAB - MICRO GENERAL ORDERABL ES Performing Organization Address City/State/ZIP Code Phon e Number [facility] [place] [phone] Diag. Lab [address], [address] [facility] Infectious [place], [place] [phone] Diseases Diagnostic [phone], [place] Lab (IDDL) [address] [facility], Room [address]297 documented in this encounter Visit Diagnoses Diagnosis Encounter for screening for other viral diseases documented in this encounter Care Teams Personnel Recruiter Relationship Specialty Start Date End Date Tena Romero PA-C PCP - General 06/16/21 [facility] [address] [place] [address] [facility], [facility] 06/01/[address] [place] [phone] documented as of this encounter
--- OUTSIDE RECORDS SUMMARY | 2022-08-10 07:25 | XMS_ITS | Encounter Summary ---
:1950 Author Organization [facility] Address [address] [place] [address]. [place] [address] Care Team Providers Name Role Phone Clinic, [facility] Tena Romero PA-C Primary Care Provider Reason for Visit Auth/Cert Specialty Diagnoses / Procedures Referred By Contact Refer red To Contact Gastroenterology Diagnoses Screen for colon cancer Screen for colon cancer [Z12.11] Endoscopy Procedures HC COLONOSCOPY W/WO BRUSH/WASH COLONOSCOPY [address] [place] [address] Phone: Fax: Referral ID Status Reason Start Date Expiration Date Visits Requ ested Visits Authorized [id number] 1 1 Encounter Details Date Type Department Care Team Description 07/13/2021 Surgery [facility] Taras Redman, COLO NOSCOPY, WITH Endoscopy Dayanna MILLER BIOPSIES USING BIOPSY [address] [place]AL [address] [place] [address] [place], [place] [id number] Surgery Details Date/Time Status Location OR Service [...] Ask yourdoctor about supplemental fiber products. ?? 6212-0926 Neisha Pierre, [address] [place] [address], [place] [address]. All rights reserved. This information is not [...] needed, you may be told to take wypx-wgk-[id number] stool softeners. To help relieve pain, antispasmodic [...] the option of having surgery with you. [place] [facility] Help keep your colon healthy with a diet that includes plenty of high-fiber fruits, vegetables, and whole grains. Drink plenty of liquids like water and juice. Your doctor may also recommend avoiding seeds and nuts. ?? 5276-5466 [facility], [address] [place] [address], [place] [address]. All rights reserved. This information is not intended as a substitute for professional medical care. Always follow your healthcare professional's instructions. documented in this encounter Medications at Time of Discharge Medication Sig Dispensed Refills Start Date End Date ASPIRIN PO Take 81 mg by mouth 0 daily calcium carbonate (OS-GRABIEL Take 2 tablets by 0 500 MG AMBLER. CA) 1250 MG mouth daily tablet Multiple [...] Reported, Patient calcium carbonate (OS-GRABIEL 500 MG AMBLER. CA) 1250 MG tablet Take 2 tablets [...] Component Value Ref Test Analysis Performed At [facility] gist Range Method Time Signature Case Report Surgical Pathology Report ? Case: [id number] ? 07/14/2021 Authorizing Provider: ??Taras Aragon MD ?Collected: ? 07/13/2021 09:17 AM ? 9:43 AM CDT LABORATO RY Ordering Location: ? [facility] ?Received: ?07/13/2021 10:17 AM ? Endoscopy [place] ? Pathologist: ? Melanie Kee MD PhD [...] CDT LABORATORY this testing was completed at [facility] Laboratory Specimen Anatomical Collection Method Collection Time Receive d Time (Source) Location / / Volume Laterality Biopsy STRUCTURE OF 07/13/2021 9:17 AM 1 DISTAL PORTION OF CDT 10:17 AM C DT ILEUM / Unknown Taras LEE - JOHN LANGLEY Performing Organization Address City/State/ZIP Code Phon [place] [address] Care Lab [address] [facility] Lab (1st floor, no room number) COLONOSCOPY (07/13/2021 8:56 AM CDT) [facility] Method Time Signature COLONOSCOPY [facility] RADIOLOGY RESULTS Patient Name: Jeanine Pettit ?Procedure D ate: 07/13/2021 8:56 AM ? Accou nt Number: [id number] Date of : 1950 ? Admit Type: Out patient Age: 71 ? Gender: Female Attending MD: Taras hinds MD ?? Total Sedation Time: 12_minutes continuous bedside 1:1 Instrument Name: 222 - Adult Colonoscope Procedure: ?Colonoscopy Indications: ?High ri sk colon cancer surveillance: Personal ?history of colonic po lyps Providers: ?Taras Redman MD (Doc [facility]) Referring MD: ? Medicines: ?Midazo lambert 1 [...] continuously. The ?[employer]us Adult Colonoscope, Model # CF-WP670D, ?Endora # 222, SN # [id number] was introduced through ?the anus and advanced [...] Procedure Code(s): ? --- Professional --- ? 78854, Colonoscopy, flexible; with biopsy, single or multiple Diagnosis Code(s): ? --- Professional --- ? Z98.0, Intestinal bypass and anastomosis status ? K63.3, Ulcer of intestine ? Z86.010, Personal history of colonic polyps CPT copyright 2019 [employer]. All rights reserved. The codes documented in this report are prelimin hallie and upon ornament setter review may be revised to meet current compliance requirements. Electronically signed by Taras Redman MD Taras Redman MD 07/13/2021 9:32:26 AM I was physically present for the entire viewing portion of t he exam. Taras Redman MD Number of Addenda: 0 Note Initiated On: 07/13/2021 8:56 AM MRN: ?[id number] Procedure Date: ? 07/13/2021 8:56:33 AM Scope [...] on Mon07/13/21 at 0810, For 1 dose, [place] throat with 1-4 spr ays 5 minutes [...] on Mon07/13/21 at 0810, For 1 dose, [place] throat with 1-4 sprays 5 minutes prior [...] provider.
documented in this encounter Care Teams Gang Mower Operator Relationship Specialty Start Date End Date Tena Romero PA-C PCP - General 06/16/21 [facility] [address] [place], [place] [id number] [facility], [facility] 06/01/[address] [place] [address] [address], [place] [id number] documented as of this encounter
--- OUTSIDE RECORDS SUMMARY | 2022-08-10 07:25 | XMS_ITS | Encounter Summary ---
:1950 Author Organization [facility] Address [address] [place] [address] Care Team Providers Name Role Phone [facility] Unavailable Tena Romero PA-C Primary [...] on filedocumented in this encounter Care Teams Brand Development Manager Relationship Specialty Start Date End Date Tena Romero PA-C PCP - General 06/16/21 [place] [address] [place] [phone] [facility] 06/01/[address] [place] [address] documented as of this encounter
--- OUTSIDE RECORDS SUMMARY | 2022-08-10 07:26 | XMS_ITS | Encounter Summary ---
:1950 Author Organization [facility] Address [address] [place] [address] Care Team Providers Name Role Phone Unavailable Primary Care Provider Unavailable Encounter Details Date Type Department Care Team Description 06/07/2010 Historic Notes INTERFACED REPORT Interface, Transcript onMD Social History Tobacco Use Types Packs/Day Years Used Date Never Assessed Sex Assigned at Date Recorded Not on file documented as of this encounter Progress Notes Interface, Desk Pen Set Assembler - 02/04/2011 11:43 PM CDT Patient Status - Diagnosis/Procedure Laparoscopic assisted right hemicolectomy - Physical status Stable (s/s of potential complications absent or manageable) - Psychosocial status Stable Discharge Planning - Discharge From: [facility] - Patient Care Unit: 5th floor - [...] Dr. Brooks call: - [facility] call: - Additional Leave [...]
--- OUTSIDE RECORDS SUMMARY | 2022-08-10 07:26 | XMS_ITS | Encounter Summary ---
:1950 Author Organization [place] Address [address] [place] [address] Care Team Providers Name Role Phone Unavailable Primary Care Provider Unavailable Encounter Details Date Type Department Care Team Description 06/01/2010 Historic Notes INTERFACED REPORT Interface, Transcript onMD Social History Tobacco Use Types Packs/Day Years Used Date Never Assessed Sex Assigned at Date Recorded Not on file documented as of this encounter Progress Notes Interface, Assistant Corporation Counsel - 02/05/2011 12:09 AM CDT General Information - How to be Addressed Jeanine - Temporary Family none required Living Arrangements - Source of Information patient - Patient Belongings cell phone; clothing; left contact; right contact; glasses - director personal #1: Jaylen Pettit - Relationship to patient #1: - Phone 1: [phone] - Cell - Patient's spoken language; Gabonese or Bilingual communication style Advance Directive - [...] abuse, self neglect, lack of adequate food, nursing home, medical care, or financial exploitation)? Values/Beliefs/Spiritual Care [...] none Considerations - Developmental none Considerations - Islam none Considerations Mutuality/Individual Preferences - What information [...]
--- OUTSIDE RECORDS SUMMARY | 2022-08-10 07:26 | XMS_ITS | Encounter Summary ---
:1950 Author Organization [facility] Address [address] [place] [address]. [place] [address] Care Team Providers Name Role Phone Janice Oreilly MD Primary Care Provider Clinic, [facility] Reason for Visit Auth/Cert Specialty Diagnoses / Procedures Referred By Contact Refer red To Contact Gastroenterology Diagnoses Screening Rh Endoscopy Procedures COLONOSCOPY [address] [place] [address] Phone: Fax: Referral ID Status Reason Start Date Expiration Date Visits Requ ested Visits Authorized [id number] 1 1 Encounter Details Date Type Department Care Team Description 06/21/2017 Hospital Encounter [facility] Taras Redman , Endoscopy Dayanna MILLER [address] [place], [place] GASTROINTESTINAL [address] [address] [facility] [phone] [place], [place] [id number] (Wo rk) Social History Tobacco Use Types [...] Take 2 tablets by 0 500 MG [place]. CA) 1250 MG mouth daily tablet Multiple [...] Reported, Patient calcium carbonate (OS-GRABIEL 500 MG [place]. CA) 1250 MG tablet Take 2 tablets [...] encounter Results COLONOSCOPY (06/21/2017 7:18 AM CDT) [facility] Method Time Signature COLONOSCOPY [facility] RAD IOLOGY RESULTS Patient Name: Jeanine Pettit ?Procedure Date: 06/21/2017 7:18 AM ? Accou nt Number: [id number] Date of : 1950 ? Admit Type: [...] and ?oxygen saturations were monitored continuously. The ?[employer] Peds Colonoscope Model #PCF-H190L, ?Endora#135, SN#[id number] was introduced through the ?anus and advanced [...] history of colonic polyps CPT copyright 2016 [employer]. All rights reserved. The codes documented in this report are prelimin hallie and upon data coder operator review may be revised to meet current compliance requirements. Electronically signed by Taras Redman MD Taras Redman MD 06/21/2017 7:53:09 AM I was physically present for the entire viewing portion of t he exam. Taras Redman MD Number of Addenda: 0 Note Initiated On: 06/21/2017 7:18 AM MRN: ?[id number] Procedure Date: ? 06/21/2017 7:18:53 AM Scope [...]
Post-procedure documented in this encounter Care Teams Integrated Logistics Support Manager Relationship Specialty Start Date End Date Janice Oreilly MD PCP - General [facility] Practice 05/14/14 06/15/[address] [address] [facility], [facility] 06/01/[address] [address] documented as of this encounter
--- OUTSIDE RECORDS SUMMARY | 2022-08-10 07:26 | XMS_ITS | Encounter Summary ---
:1950 Author Organization [place] Address [address] [place] [address] Care Team Providers Name Role Phone Unavailable Primary Care Provider Unavailable Reason for Visit Auth/Cert (Routine) - Closed Specialty Diagnoses / Procedures Referred By Contact Refer red To Contact Gastroenterology Diagnoses Polyp History Rh Endoscopy Procedures COLONOSCOPY [address] [place] [address] Phone: Fax: Referral ID Status Reason Start Date Expiration Date Visits Requ ested Visits Authorized [id number] Closed 1 1 Encounter Details Date Type Department Care Team Description 06/05/2012 Hospital Encounter [facility] Wilfredo Kay MD Endoscopy [place] [address] [place] [address] [place], [place] [phone] (Wo rk) [address] [phone] Social History Tobacco Use Types Packs/Day Years [...] encounter Results COLONOSCOPY (06/05/2012 8:32 AM CDT) [facility] Method Time Signature COLONOSCOPY [facility] RAD IOLOGY RESULTS Patient Name: Jeanine Pettit ? Procedure Date: 06/05/2012 8:32:35 AM ? Date of : 1950 ? Admit Type: Outpatient ? Age: 61 ? Gender: Female ? Attending MD: Trae Rodriguez MD ? Procedure: ?Colonoscopy Indications: ?Personal histor y of colonic polyps - sessile ?serrated adenoma of [facility] colon Providers: ?Trae Kay MD Referring : [...]
--- OUTSIDE RECORDS SUMMARY | 2022-08-10 07:26 | XMS_ITS | Encounter Summary ---
:1950 Author Organization [facility] Address [address] [place] [address] Care Team Providers Name Role Phone Unavailable Primary Care Provider Unavailable Encounter Details Date Type Department Care Team Description 04/21/2010 Results Only [facility] Anastasia Salas MD Endoscopy [place] [address] [place] [address] [place] [address] [phone] Social History Tobacco Use Types Packs/Day Years Used Date Never Assessed Sex Assigned at Date Recorded Not on file documented as of this encounter Plan of Treatment Not on filedocumented as of this encounter Procedures Procedure Name Priority Date/Time Associated Diagnosis Comme nts COLONOSCOPY Routine 04/21/2010 9:45 AM Results f or this CDT procedure are i n the results section . documented in this encounter Results COLONOSCOPY (04/21/2010 9:45 AM CDT) [facility] Method Time Signature COLONOSCOPY [facility] RAD IOLOGY RESULTS Patient Name: Jeanine Pettit ? Gender: F ? Procedure Date: 04/21/2010 9:4 5 AM ? Date of : 1950 ? Age: 59 ? Admit Type: Outpatient ? Attending MD: Trae Kay MD ? Procedure: ? Colonoscopy Indications: ? Personal history of col onic polyps, sessile serrated ? adenoma of right colon. Providers: ? Trae Kay MD Referring MD: ?Adriane Whitaker MD, Alfonso Brooks MD Medicines: ? Mi dazolam 2 mg IV, Fentanyl 100 micrograms IV, Atropine ? 0.6 mg IV Complications: ? No immediate complications Procedure: ? [...] oxygen ? saturations were monitored continuously. The ? PCF-[id number] was introduced through the anus and ? advanced to the cecum, identified by appendiceal orifice ? & IC valve. The colonoscopy was performed without ? difficulty. The patient tolerated the procedure well. ? The quality of the prep was e xcellent. ? Findings: ? The digital rectal exam was normal. A sessile polyp was found in the ? ascending colon. The polyp was 3 mm in size. Th is was biopsied with a ? hot forceps for histology. A sessile polyp was found in the ascending ? colon. The polyp was 20 mm in size. This was biopsied with a cold ? forceps for histology. This was successfully in jected with 1 mL Kiley ? ink for tattooing. A sessile polyp was found in the transverse colon. ? The polyp was 5 mm in size. The polyp was removed wit h a hot snare. ? Resection and retrieval were complete. The rectum, si gmoid colon, ? descending colon, splenic flexure , hepatic flexure, cecum and ileocecal ? valve appeared normal . The retroflexed view of the anal verge was normal ? and showed no anal or rectal abnormalities. ? Impression: ?- A 3 mm polyp in the ascending colon. Tissue was ? removed. ? - A 20 mm polyp in the ascending colon. Tissue was ? removed. Too big and flat for colonoscopic removal. ? - A 5 mm polyp in the transverse colon. Resected and ? retrieved. ? - The rectum, sigmoid colon, descending colon, splenic ? flexure, hepatic flexure, cecum and ileocecal valve are ? normal. Recommendation: ?- Discharge patient to home (ambulat ory). ? - Patient should telephone endoscopist in 1 week. ? - Refer to a surgeon in [address] Brooks. ? - Return to primary care phys ician PRN. ? R Eliza Allred Trae Kay MD Signed Date: 04/21/2010 10:44 AM Number of Addenda: 0 I was physically present for the entire viewing portion of t he exam. Note initiated on 04/21/2010 9:44 AM Specimen (Source) Anatomical Collection Method Collection Time Re ceived Time Location / / Volume Laterality 04/21/2010 9:45 AM CDT Anastasia Salas MD PROCEDURES Performing Organization Address City/State/ZIP Code Phon e Number RADIOLOGY RESULTS documented in this encounter Visit Diagnoses Not on filedocumented in this encounter
--- OUTSIDE RECORDS SUMMARY | 2022-08-10 07:26 | XMS_ITS | Encounter Summary ---
:1950 Author Organization [facility] Address [address] [place] [address] Care Team Providers Name Role Phone Unavailable Primary Care Provider Unavailable Encounter Details Date Type Department Care Team Description 02/06/2006 Historic Results INTERFACED REPORT [place] [address] (Wo rk) Social History Tobacco Use Types Packs/Day Years Used Date Never Assessed Sex Assigned at Date Recorded Not on file documented as of this encounter Plan of Treatment Not on filedocumented as of this encounter Procedures Procedure Name Priority Date/Time Associated Diagnosis Comme nts HISTOPATHOLOGY Routine 02/06/2006 12:00 AM Result s for this BILINGUAL EXECUTIVE ASSISTANT procedure are i n the results section . documented in this encounter Results Histopathology (02/06/2006 12:00 AM BILINGUAL EXECUTIVE ASSISTANT) Component Value Ref Test Analysis Performed At [facility] Range Method Time Signature Copath Report CASE: [id number] ^ COPATH Patient Name: DESHAUN PETTIT MR#: [id number] Specimen #: [id number] Collected: 02/06/2006 Received: 02/06/2006 Reported: 02/07/2006 15:55 [...] are present. MGP/sg 02-07-06 TESTING LAB LOCATION: [address] ??[id number] COLLECTION SITE: Client: [facility] Location: ENDO (R) Specimen (Source) Anatomical Collection Method Collection Time Re ceived Time Location / / Volume Laterality 02/06/2006 02/07/2006 3:56 PM BILINGUAL EXECUTIVE ASSISTANT Carmelo Valiente MD LAB - COPATH SPECIAL DIAG OR DERABLES Performing Organization Address City/State/ZIP Code Phon e Number COPATH documented in this encounter Visit Diagnoses Not on filedocumented in this encounter
--- OUTSIDE RECORDS SUMMARY | 2022-08-10 07:26 | XMS_ITS | Encounter Summary ---
:1950 Author Organization [facility] Address [address] [place] [address] Care Team Providers Name Role Phone Unavailable Primary Care Provider Unavailable Encounter Details Date Type Department Care Team Description 06/07/2010 Operative Report [facility] Brandi Brooks, (Cardiovascular Specialist) [facility] Results [address] [place] [address] (Wo rk) Social History Tobacco Use Types Packs/Day Years Used Date Never Assessed Sex Assigned at Date Recorded Not on file documented as of this encounter Progress Notes Brandi Brooks - 06/08/2010 8:59 AM CDT FINAL SURGEON: Brandi Brooks MD GROUP CHIEF OPERATOR: Jean-Pierre Cochran MD SECOND CHIEF WHARFINGER: BILLIE Anaya PREOPERATIVE DIAGNOSIS: Serrated adenoma, right colon. POSTOPERATIVE DIAGNOSIS: Serrated adenoma, right colon. PROCEDURE: Laparoscopic right hemicolectomy. ANESTHESIA: General. INDICATIONS: Mrs. Pettit is a 59-year-old woman who had a routine screening colonoscopy which showed3 serrated adenomas in the right colon and transverse colon. Two of these were removed completely. The other was a broad-based and unable to be removed. Although there was no atypia or cancer in the biopsy of it operation was advised. The patient understood the indications for operation, the risks andpotential complications and consented. OPERATIVE PROCEDURE: The patient was given a general anesthetic and the abdomen was prepped and draped. She had been given an antibiotic and mechanical outpatient bowel prep. I began by making a smallincision above the umbilicus and using a Pierce technique put a 12 mm trocar in. Under direct vision, 2 additional trocars were placed. These were both 5 mm, one in the left lower quadrant and one in the left upper quadrant. The scope was then changed to a 5 mm 30 degree and this was placed through the left upper quadrant trocar site. I began mobilizing the colon by incising the lateral white line of Toldt from the cecum to the transverse colon. Once this was incised the colon was dissected medially and I did expose and visualize the right ureter. The hepatic flexure was taken down using the LigaSure. Once the colon andterminal ileum were completely mobilized, the pneumoperitoneum was decompressed and the umbilical trocar was removed. The fascia at the supraumbilical incision was opened for a total of about 2 inches.The skin incision was also enlarged. The colon was grasped and brought out through this incision including the terminal ileum and the mid transverse. With this done, a window was made in the mesentery both proximal and distal and a DANIEL was placed through this and fired, dividing the terminal ileum andthe transverse colon. I then came through the mesocolon with clamps, tying the vessels with Vicryl suture. The right colon was then passed from the table and sent to Pathology. The 2 bowel ends were brought into appositionand a stapled DANIEL anastomosis which was functionally end-to-end was created after cutting off the edges of the staple line and divided the bowel. The common defect was closed with a TA 60 stapler. The bowel was then returned to the abdominal cavity and the midline incision was closed with running 0 PDS. A pneumoperitoneum was then obtained and everything was inspected with the laparoscope. Everything appeared hemostatic. The anastomosis and the area surrounding was irrigated thoroughly with ant ibiotic solution and I aspirated all of the irrigant. There is no evidence of bleeding. It should be noted a couple of stay sutures were placed in the staple closures for hemostasis and to take tension off the anastomosis. The trocars were then removed and the skin incisions were all closed with 4-0 Vicryl subcuticular sutures and Steri-Strips. Dressings were applied and the patient went to recovery in good condition. Total blood loss 50 cc. Sponge and needle counts were correct x2. Electronically signed on 06/08/2010 08:58 by BRANDI BROOKS MD MT: [id number] Name: DESHAUN PETTIT Account: [id number] : 1950 Procedure Date: 06/07/2010 Document: [id number] documented in this encounter Plan of Treatment Not on filedocumented as of this encounter Visit Diagnoses Not on filedocumented in this encounter
--- OUTSIDE RECORDS SUMMARY | 2022-08-10 07:26 | XMS_ITS | Encounter Summary ---
:1950 Author Organization [place] Address [address] [place] [address] Care Team Providers Name Role Phone Unavailable Primary Care Provider Unavailable Encounter Details Date Type Department Care Team Description 03/05/2007 GI Procedure [facility] Endoscopy [place] [address] [place] [address] Social History Tobacco Use [...] encounter Results COLONOSCOPY (03/05/2007 7:20 AM CDT) [facility] Method Time Signature COLONOSCOPY Endoscopy RADIOLOGY [...] oxygen saturations were monitored ?cont inuously. The [address] #[id number] was introduced through ?the anus and advanced [...] surveillance. ?- Return to primary care provider [place]. ? R Eliza Allred Trae Kay [...]
--- OUTSIDE RECORDS SUMMARY | 2022-08-10 07:26 | XMS_ITS | Encounter Summary ---
:1950 Author Organization [place] Address [address] [place] [address]. [place] [address] Care Team Providers Name Role Phone Janice Oreilly MD Primary Care Provider Reason for Visit Auth/Cert - Closed Specialty Diagnoses / Procedures Referred By Contact Refer red To Contact Gastroenterology Diagnoses HX OF POLYPS Rh Endoscopy Procedures COLONOSCOPY [address] [place] [address] Phone: Fax: Referral ID Status Reason Start Date Expiration Date Visits Requ ested Visits Authorized [id number] Closed 1 1 Encounter Details Date Type Department Care Team Description 06/04/2014 Hospital Encounter [facility] Taras Redman , Endoscopy Dayanna MILLER [address] [place], [place] GASTROINTESTINAL [address] [address] [facility] [phone] [place], [place] [phone] (Wo rk) Social History Tobacco Use Types [...] encounter Results COLONOSCOPY (06/04/2014 8:02 AM CDT) [facility] Method Time Signature COLONOSCOPY [facility] RAD IOLOGY RESULTS Patient Name: Jeanine Pettit [...] ?oxygen saturations were monitored continuously. The ?PCF-H190L [id number] was introduced through the anus ?and advanced to the anastamosis.. The colonoscopy ?was performed without difficulty. The patient ?tolerated the procedure well. The quality of the ?bowel preparation was good. ? Findings: ? The perianal and digital rectal examinations were n ormal. The entire ? examined colon appeared normal on direct and retroflexion views. There ? were tiny apthous ulcers seen at the [facility] were not ? significant. ? Impression: [...] Intra-procedure documented in this encounter Care Teams Business English Instructor Relationship Specialty Start Date End Date Janice Oreilly MD PCP - General Family Practice 05/14/14 06/15/21 [facility] [address] [place] [address] documented as of this encounter
--- OUTSIDE RECORDS SUMMARY | 2022-08-10 07:26 | XMS_ITS | Encounter Summary ---
:1950 Author Organization [place] Address [address] [place] [address] Care Team Providers Name Role Phone Unavailable Primary Care Provider Unavailable Encounter Details Date Type Department Care Team Description 11/27/2007 Results Only [facility] Results Social History Tobacco Use Types Packs/Day Years Used Date Never Assessed Sex Assigned at Date Recorded Not on file documented as of this encounter Plan of Treatment Not on filedocumented as of this encounter Procedures Procedure Name Priority Date/Time Associated Diagnosis Comme [facility] MAMMOGRAM, Routine 11/27/2007 9:41 AM Results for this SCREENING BILATERAL CASTING MACHINE CONTROL BOARD OPERATOR procedur e are in the results section. documented in this encounter Results MAMMOGRAM, SCREENING (11/27/2007 9:41 AM CASTING MACHINE CONTROL BOARD OPERATOR) Specimen (Source) Anatomical Collection Method Collection Time Re ceived Time Location / / Volume Laterality 11/27/2007 9:41 AM CASTING MACHINE CONTROL BOARD OPERATOR Impressions RADIOLOGY RESULTS - 11/28/2007 3:[address] EXAM: BILATERAL SCREENING MAMMOGRAPHY HISTORY/COMPARISON: ??Routine screening. 12/17/02, 11/23/06 Breast parenchyma: Heterogeneous. FINDINGS: Negative. IMPRESSION: Category 1. Negative. [facility] SPECIAL IMAGING STUDIES Performing Organization Address City/State/ZIP Code Phon e Number RADIOLOGY RESULTS documented in this encounter Visit Diagnoses Not on filedocumented in this encounter
--- OUTSIDE RECORDS SUMMARY | 2022-08-10 07:26 | XMS_ITS | Encounter Summary ---
:1950 Author Organization [place] Address [address] [place] [address] Care Team Providers Name Role Phone Unavailable Primary Care Provider Unavailable Reason for Visit Auth/Cert (Routine) - Closed Specialty Diagnoses / Procedures Referred By Contact Refer red To Contact Gastroenterology Diagnoses Polyp History Endoscopy Procedures COLONOSCOPY [address] [place] [address] Phone: Fax: Referral ID Status Reason Start Date Expiration Date Visits Requ ested Visits Authorized [id number] Closed 1 1 Encounter Details Date Type Department Care Team Description 06/05/[address] [facility] Endoscopy Trae Kay MD COLONOSCOPY [place] XXX RETIRED XXX [address] [facility] [place] [address] [place] [address] [phone] Surgery Details Date/Time Status Location OR Service [...] encounter Results COLONOSCOPY (06/05/2012 8:32 AM CDT) [facility] Method Time Signature COLONOSCOPY [facility] RAD IOLOGY RESULTS Patient Name: Jeanine Pettit ? Procedure Date: 06/05/2012 8:32:35 AM ? Date of : 1950 ? Admit Type: Outpatient ? Age: 61 ? Gender: Female ? Attending MD: Trae Rodriguez MD ? Procedure: ?Colonoscopy Indications: ?Personal histor y of colonic polyps - sessile ?[facility] Providers: ?Trae Kay MD Referring MD: [...]
--- OUTSIDE RECORDS SUMMARY | 2022-08-10 07:26 | XMS_ITS | Encounter Summary ---
:1950 Author Organization [place] Address [address] [place] [address] Care Team Providers Name Role Phone Unavailable Primary Care Provider Unavailable Encounter Details Date Type Department Care Team Description 04/16/2009 Historic Results INTERFACED REPORT Carmelo [place] [address] (Wo rk) Social History Tobacco Use Types [...] Component Value Ref Test Analysis Performed At [facility] Range Method Time Signature Copath Report CASE: [id number] ^ COPATH Patient Name: DESHAUN PETTIT MR#: [id number] Specimen #: [id number] Collected: 04/16/2009 Received: 04/16/2009 Reported: 04/17/2009 13:58 [...] ad enoma(s). ED/tory 04-17-09 TESTING LAB LOCATION: [address] ??[address] COLLECTION SITE: Client: [facility] Location: ENDO (R) Specimen (Source) Anatomical Collection Method Collection Time Re ceived Time Location / / Volume Laterality 04/16/2009 04/17/2009 1:59 PM CDT Carmelo Valiente MD LAB - COPATH SPECIAL DIAG OR DERABLES Performing Organization Address City/State/ZIP Code Phon e Number COPATH documented in this encounter Visit Diagnoses Not on filedocumented in this encounter
--- OUTSIDE RECORDS SUMMARY | 2022-08-10 07:26 | XMS_ITS | Encounter Summary ---
:1950 Author Organization [place] Address [address] [place] [address] Care Team Providers Name Role Phone Unavailable Primary Care Provider Unavailable Encounter Details Date Type Department Care Team Description 06/11/2010 Discharge Summary [facility] Brandi Madrid, (Concrete Stone Fabricating Supervisor) [facility] Results [address] [place] [address] (Wo rk) Social History Tobacco [...] care ofher incisions and the use of [place] as needed for pain management at home. [...] PA-C MT: [id number] Name: DESHAUN BARNES Account: [id number] : 1950 Admit Date: Discharge Date: 06/11/2010 Document: [id number] cc: Anastasia Whitaker NP documented in this encounter Plan of Treatment Not on filedocumented as of this encounter Visit Diagnoses Not on filedocumented in this encounter
--- OUTSIDE RECORDS SUMMARY | 2022-08-10 07:26 | XMS_ITS | Encounter Summary ---
:1950 Author Organization [place] Address [address] [place] [address] Care Team Providers Name Role Phone Unavailable Primary Care Provider Unavailable Encounter Details Date Type Department Care Team Description 07/22/2010 Results Only [facility] Alfonso Brooks MD Hospital Results [address] [place], [place] [address] (Wo rk) Social History [...]
--- OUTSIDE RECORDS SUMMARY | 2022-08-10 07:26 | XMS_ITS | Encounter Summary ---
:1950 Author Organization [place] Address [address] [place] [address] Care Team Providers Name Role Phone Unavailable Primary Care Provider Unavailable Encounter Details Date Type Department Care Team Description 04/27/2011 Results Only INTERFACED REPORT Corazon Oreilly MD [facility] [address] [place], [place] [address] (Wo rk) Social History [...] encounter Results COLONOSCOPY (04/27/2011 7:13 AM CDT) [facility] Method Time Signature COLONOSCOPY [facility] [...]
--- OUTSIDE RECORDS SUMMARY | 2022-08-10 07:26 | XMS_ITS | Encounter Summary ---
:1950 Author Organization [place] Address [address] [place] [address] Care Team Providers Name Role Phone Unavailable Primary Care Provider Unavailable Encounter Details Date Type Department Care Team Description 12/15/[address] [facility] Anastasia Salas MD Hospital Results [address] [place], [place] [address] (Wo rk) Social History Tobacco Use Types Packs/Day Years Used Date Never Assessed Sex Assigned at Date Recorded Not on file documented as of this encounter Plan of Treatment Not on filedocumented as of this encounter Procedures Procedure Name Priority Date/Time Associated Diagnosis Comme [facility] MAMMO SCREEN Routine 12/15/2009 8:22 AM Result s for this BILATATERAL, INCL FABRIC AND TEXTILE FACTORY WORKER procedure are in CAD WHEN PERF the results section. documented in this encounter Results SCREENING MAMMOGRAPHY DIGITAL (BILAT) (12/15/2009 8:22 AM FABRIC AND TEXTILE FACTORY WORKER) Specimen (Source) Anatomical Collection Method Collection Time Re ceived Time Location / / Volume Laterality 12/15/2009 8:22 AM FABRIC AND TEXTILE FACTORY WORKER Impressions RADIOLOGY RESULTS - 12/15/2009 11:11 AM FABRIC AND TEXTILE FACTORY WORKER SCREENING MAMMOGRAPHY, BILATERAL, DIGITA L, w/CAD ??December 15, 2009. HISTORY/COMPARISON: Routine. 12/12/2008, 12/07/2005 BREAST PARENCHYMAL PATTERN: ??Heterogene ously dense. FINDINGS: ??Negative. ?? IMPRESSION: ??BI-RADS 1, NEGATIVE. Anastasia Salas MD SPECIAL IMAGING STUDIES Performing Organization Address City/State/ZIP Code Phon e Number RADIOLOGY RESULTS documented in this encounter Visit Diagnoses Not on filedocumented in this encounter
--- OUTSIDE RECORDS SUMMARY | 2022-08-10 07:26 | XMS_ITS | Encounter Summary ---
:1950 Author Organization [place] Address [address] [place] [address] Care Team Providers Name Role Phone Unavailable [...]
--- OUTSIDE RECORDS SUMMARY | 2022-08-10 07:26 | XMS_ITS | Encounter Summary ---
:1950 Author Organization [place] Address [address] [place] [address] Care Team Providers Name Role Phone Unavailable Primary Care Provider Unavailable Encounter Details Date Type Department Care Team Description 04/27/2011 Hospital Pathology [facility] Wilfredo Valiente MD [facility] [place] [address] (Wo rk) Social History Tobacco Use Types Packs/Day Years Used Date Never Assessed Sex Assigned at Date Recorded Not on file documented as of this encounter Plan of Treatment Not on filedocumented as of this encounter Procedures Procedure Name Priority Date/Time Associated Diagnosis Comme [facility] SURGICAL PATHOLOGY Routine 04/27/2011 12:00 AM Re sults for this EXAM CDT procedure are i n the results section. documented in this encounter Results Surgical pathology exam (04/27/2011 12:00 AM CDT) Component Value Ref Test Analysis Performed At [facility] Range Method Time Signature Copath Report Patient Name: DESHAUN PETTIT MR#: [id number] Specimen #: [id number] Collected: 04/27/2011 Received: 04/27/2011 Reported: 04/28/2011 13:28 [...] or malignancy. MGP/kd 04-28-11 TESTING LAB LOCATION: [address] ??[address] COLLECTION SITE: Client: [facility] Location: ENDO (R) Specimen (Source) Anatomical Collection Method Collection Time Re ceived Time Location / / Volume Laterality 04/27/2011 04/27/2011 8:48 AM CDT Carmelo LEE - JOHN [facility]ANGLEY Performing Organization Address City/State/ZIP Code Phon e Number COPATH documented in this encounter Visit Diagnoses Not on filedocumented in this encounter
--- OUTSIDE RECORDS SUMMARY | 2022-08-10 07:26 | XMS_ITS | Encounter Summary ---
:1950 Author Organization [place] Address [facility] [place] [address] Care Team Providers Name Role Phone Janice Oreilly MD Primary Care Provider Clinic, [facility] Reason for Visit Auth/Cert Specialty Diagnoses / Procedures Referred By Contact Refer red To Contact Gastroenterology Diagnoses Screening Rh Endoscopy Procedures COLONOSCOPY [address] [place] [address] Phone: Fax: Referral ID Status Reason Start Date Expiration Date Visits Requ ested Visits Authorized [id number] 1 1 Encounter Details Date Type Department Care Team Description 06/21/[address] [facility] Endoscopy Taras Aragon MD COLONOSCOPY [facility] [address] [place] [address] [place] [address] [place] [address] [phone] (Wo rk) Surgery Details Date/Time Status Location [...] Take 2 tablets by 0 500 MG [place]. [place]) 1250 MG mouth daily tablet Multiple [...] Reported, Patient calcium carbonate (OS-GRABIEL 500 MG [place]. [place]) 1250 MG tablet Take 2 tablets [...] encounter Results COLONOSCOPY (06/21/2017 7:18 AM CDT) [facility] Method Time Signature COLONOSCOPY [facility] RAD IOLOGY RESULTS Patient Name: Jeanine Pettit ?Procedure Date: 06/21/2017 7:18 AM ? Accou nt Number: [id number] Date of : 1950 ? Admit Type: [...] The ?[employer] Peds Colonoscope Model #PCF-H190L, ?[place]#135, SN#[id number] was introduced through the ?anus and advanced [...] history of colonic polyps CPT copyright 2016 [employer]. All rights reserved. The codes documented in this report are prelimin hallie and upon contract implementation analyst review may be revised to meet current compliance requirements. Electronically signed by Taras Redman MD Taras Redman MD 06/21/2017 7:53:09 AM I was physically present for the entire viewing portion of t he exam. Taras Redman MD Number of Addenda: 0 Note Initiated On: 06/21/2017 7:18 AM MRN: ?[id number] Procedure Date: ? 06/21/2017 7:18:53 AM Scope [...]
Post-procedure documented in this encounter Care Teams Saloon Keeper Relationship Specialty Start Date End Date Janice Orielly MD PCP - General Family Practice 05/14/14 06/15/21 [place] [address] [place] [address] [facility], [facility] 06/01/17 [place] [address] [address] [place], [place] [phone] documented as of this encounter
--- OUTSIDE RECORDS SUMMARY | 2022-08-10 07:26 | XMS_ITS | Encounter Summary ---
:1950 Author Organization [place] Address [address] [place] [address] Care Team Providers Name Role Phone Unavailable Primary Care Provider Unavailable Encounter Details Date Type Department Care Team Description 12/07/2005 Results Only [facility] Results Social History Tobacco Use Types Packs/Day Years Used Date Never Assessed Sex Assigned at Date Recorded Not on file documented as of this encounter Plan of Treatment Not on filedocumented as of this encounter Procedures Procedure Name Priority Date/Time Associated Diagnosis Comme nts C MAMMOGRAM, Routine 12/07/2005 1:37 PM Results f or this SCREENING ACTIVITIES COORDINATOR procedure are i n the results section. documented in this encounter Results MAMMOGRAM, SCREENING (12/07/2005 1:37 PM ACTIVITIES COORDINATOR) Specimen (Source) Anatomical Collection Method Collection Time Re ceived Time Location / / Volume Laterality 12/07/2005 1:37 PM ACTIVITIES COORDINATOR Impressions RADIOLOGY RESULTS - 12/09/2005 8:[address] SCREENING MAMMOGRAM, BILATERAL BREAST SYMPTOMS: None PREVIOUS MAMMOGRAPHY: Comparison with [facility] dated 12/14/01 and [facility] Breast dated 11/30/04. ??There is no significant change. BREAST PARENCHYMA: ??Heterogeneously de nse. IMPRESSION: CATEGORY 1 Negative TECHNOLOGIST INITIALS: [place] [facility] SPECIAL IMAGING STUDIES Performing Organization Address City/State/ZIP Code Phon e Number RADIOLOGY RESULTS documented in this encounter Visit Diagnoses Not on filedocumented in this encounter
--- OUTSIDE RECORDS SUMMARY | 2022-08-10 07:26 | XMS_ITS | Encounter Summary ---
:1950 Author Organization [place] Address [address] [place] [address] Care Team Providers Name Role Phone Unavailable Primary Care Provider Unavailable Encounter Details Date Type Department Care Team Description 07/16/[address] [facility] Alfonso Brooks MD Hospital Results [address] [place], [place] [address] (Wo rk) Social History [...]
--- OUTSIDE RECORDS SUMMARY | 2022-08-10 07:26 | XMS_ITS | Encounter Summary ---
:1950 Author Organization [place] Address [address] [place] [address] Care Team Providers Name Role Phone Unavailable Primary Care Provider Unavailable Encounter Details Date Type Department Care Team Description 11/23/2006 Results Only [facility] Results Social History Tobacco Use Types Packs/Day Years Used Date Never Assessed Sex Assigned at Date Recorded Not on file documented as of this encounter Plan of Treatment Not on filedocumented as of this encounter Procedures Procedure Name Priority Date/Time Associated Diagnosis Comme [facility] MAMMOGRAM, Routine 11/23/2006 9:26 AM Results for this SCREENING BILATERAL CENTRIFUGAL EXTRACTOR OPERATOR procedur e are in the results section. documented in this encounter Results MAMMOGRAM, SCREENING (11/23/2006 9:26 AM CENTRIFUGAL EXTRACTOR OPERATOR) Specimen (Source) Anatomical Collection Method Collection Time Re ceived Time Location / / Volume Laterality 11/23/2006 9:26 AM CENTRIFUGAL EXTRACTOR OPERATOR Impressions RADIOLOGY RESULTS - 11/24/2006 2:43 PM [...]
--- OUTSIDE RECORDS SUMMARY | 2022-08-10 07:26 | XMS_ITS | Encounter Summary ---
:1950 Author Organization [place] Address [address] [place] [address] Care Team Providers Name Role Phone Unavailable Primary Care Provider Unavailable Encounter Details Date Type Department Care Team Description 12/12/2008 Results Only [facility] Anastasia Salas MD Hospital Results [address] [place], [place] [address] (Wo rk) Social History Tobacco Use Types Packs/Day Years Used Date Never Assessed Sex Assigned at Date Recorded Not on file documented as of this encounter Plan of Treatment Not on filedocumented as of this encounter Procedures Procedure Name Priority Date/Time Associated Diagnosis Comme [facility] MAMMO SCREEN Routine 12/12/2008 9:19 AM Result s for this BILATATERAL, INCL PIG FURNACE OPERATOR procedure are in CAD WHEN PERF the results section. documented in this encounter Results SCREENING MAMMOGRAPHY DIGITAL (BILAT) (12/12/2008 9:19 AM PIG FURNACE OPERATOR) Specimen (Source) Anatomical Collection Method Collection Time Re ceived Time Location / / Volume Laterality 12/12/2008 9:19 AM PIG FURNACE OPERATOR Impressions RADIOLOGY RESULTS - 12/12/2008 9:44 AM [...]
--- OUTSIDE RECORDS SUMMARY | 2022-08-10 07:26 | XMS_ITS | Encounter Summary ---
:1950 Author Organization [place] Address [address] [place] [address] Care Team Providers Name Role Phone Unavailable Primary Care Provider Unavailable Encounter Details Date Type Department Care Team Description 12/01/2004 Results Only [facility] Results Maci Peterson MD [address] [place], [place] [address] (Wo rk) Social History Tobacco Use Types Packs/Day Years Used Date Never Assessed Sex Assigned at Date Recorded Not on file documented as of this encounter Plan of Treatment Not on filedocumented as of this encounter Procedures Procedure Name Priority Date/Time Associated Diagnosis Comme nts C MAMMOGRAM, Routine 12/01/2004 1:43 PM Results f or this SCREENING CONSTRUCTION CODE ADMINISTRATOR procedure are i n the results section. documented in this encounter Results MAMMOGRAM, SCREENING (12/01/2004 1:43 PM CONSTRUCTION CODE ADMINISTRATOR) Specimen (Source) Anatomical Collection Method Collection Time Re ceived Time Location / / Volume Laterality 12/01/2004 1:43 PM CONSTRUCTION CODE ADMINISTRATOR Impressions Pacs, Data Conversion - 12/02/2004 5:18 PM CONSTRUCTION CODE ADMINISTRATOR EXAM: Bilateral analog screening Mammogr aphy with [...]
--- OUTSIDE RECORDS SUMMARY | 2022-08-10 07:26 | XMS_ITS | Encounter Summary ---
:1950 Author Organization [place] Address [address] [place] [address] Care Team Providers Name Role Phone Unavailable Primary Care Provider Unavailable Encounter Details Date Type Department Care Team Description 04/16/2009 GI Procedure Anastasia Salas MD None [address] [place], [place] [address] (Wo rk) Social History [...] encounter Results COLONOSCOPY (04/16/2009 10:45 AM CDT) [facility] Method Time Signature COLONOSCOPY Endoscopy RADIOLOGY RESULTS [...] were monitored continuously. The Colonoscope ? P-51 #[id number] was introduced through the anus and ? [...]
--- OUTSIDE RECORDS SUMMARY | 2022-08-10 07:26 | XMS_ITS | Encounter Summary ---
:1950 Author Organization [place] Address [address] [place] [address] Care Team Providers Name Role Phone Unavailable Primary Care Provider Unavailable Encounter Details Date Type Department Care Team Description 02/06/2006 GI Procedure [facility] Trae Kay MD None Endoscopy [facility] RETIRED XXX [address] [place] [address] [place] [address] [phone] Social History Tobacco Use Types Packs/Day Years Used Date Never Assessed Sex Assigned at Date Recorded Not on file documented as of this encounter Plan of Treatment Not on filedocumented as of this encounter Procedures Procedure Name Priority Date/Time Associated Diagnosis Comme nts COLONOSCOPY Routine 02/06/2006 8:40 AM Results f or this SENSITIZER procedure are i n the results section . documented in this encounter Results COLONOSCOPY (02/06/2006 8:40 AM SENSITIZER) [facility] Method Time Signature COLONOSCOPY Endoscopy RADIOLOGY RESULTS Patient Name: Jeanine Ptetit ? Gender: F ? Procedure Date: 02/06/2006 [...] oxygen saturations were monitored ?cont inuously. The [address] #[id number] was introduced through ?the anus and advanced [...] yrs. ?- Return to primary care provider [place] N. ? CPT Code(s): ?61446, Colonoscopy, flexible, proxim al to splenic flexure; ?with removal of tumor(s), polyp(s), or other lesion(s) by ?snare technique ICD Code(s): ?211.3, Benign Neoplasm of Colon The codes documented in this report are prelimin hallie and upon schedule checker review may be revised to meet current [...] / / Volume Laterality 02/06/2006 8:40 AM SENSITIZER Trae Kay MD PROCEDURES Performing Organization Address City/State/ZIP Code Phon e Number RADIOLOGY RESULTS documented in this encounter Visit Diagnoses Not on filedocumented in this encounter
--- OUTSIDE RECORDS SUMMARY | 2022-08-10 07:26 | XMS_ITS | Encounter Summary ---
:1950 Author Organization [place] Address [address] [place] [address] Care Team Providers Name Role Phone Unavailable [...] LAB - BLOOD ORDERABLES Performing Organization Address City/[facility]/ZIP Code Phon e Number MISYS Platelet count [...]
--- OUTSIDE RECORDS SUMMARY | 2022-08-10 07:26 | XMS_ITS | Encounter Summary ---
:1950 Author Organization [place] Address [address] [place] [address] Care Team Providers Name Role Phone Unavailable Primary Care Provider Unavailable Encounter Details Date Type Department Care Team Description 06/07/2010 Hospital Pathology [facility] Jaylen Madrid MD [facility] Results [address] [place], [place] [address] (Wo rk) Social History [...] Component Value Ref Test Analysis Performed At [facility] Range Method Time Signature Copath Report Patient Name: DESHAUN BARNES MR#: [id number] Specimen #: [id number] Collected: 06/07/2010 Received: 06/07/2010 Reported: 06/09/2010 17:38 [...] nod es identified within the mesenteric fat. ??Branch Or Department Chief Librarian sections are emb edded in 13 cassettes. [...] are examined. Leland 06-09-10 TESTING LAB LOCATION: [address] ??[address] COLLECTION SITE: Client: [facility] Location: [facility] (R) Specimen (Source) Anatomical Collection Method Collection Time Re ceived Time Location / / Volume Laterality 06/07/2010 06/07/2010 11:3 9 AM CDT Alfonso Madrid MD LABORATORY Performing Organization Address City/State/ZIP Code Phon e Number COPATH documented in this encounter Visit Diagnoses Not on filedocumented in this encounter
--- OUTSIDE RECORDS SUMMARY | 2022-08-10 07:26 | XMS_ITS | Encounter Summary ---
:1950 Author Organization [place] Address [address] [place] [address] Care Team Providers Name Role Phone Unavailable Primary Care Provider Unavailable Encounter Details Date Type Department Care Team Description 06/16/2004 Results Only Maci Peterson MD [address] [place], [place] [address] (Wo rk) Social History Tobacco Use Types [...]
--- OUTSIDE RECORDS SUMMARY | 2022-08-10 07:26 | XMS_ITS | Encounter Summary ---
:1950 Author Organization [place] Address [facility] [place] [address] Care Team Providers Name Role Phone Jaince Oreilly MD Primary Care Provider Reason for Visit Auth/Cert - Closed Specialty Diagnoses / Procedures Referred By Contact Refer red To Contact Gastroenterology Diagnoses HX OF POLYPS Rh Endoscopy Procedures COLONOSCOPY [address] [place] [address] Phone: Fax: Referral ID Status Reason Start Date Expiration Date Visits Requ ested Visits Authorized [id number] Closed 1 1 Encounter Details Date Type Department Care Team Description 06/04/2014 Surgery [facility] Endoscopy Taras Aragon MD COLONOSCOPY [place] [facility] [address] [place] [address] [place] [address] [place] [address] [phone] (Wo rk) Surgery Details Date/Time Status Location [...] encounter Results COLONOSCOPY (06/04/2014 8:02 AM CDT) [facility] Method Time Signature COLONOSCOPY [facility] [...] and ?oxygen saturations were monitored continuously. The ?[facility]190[facility] [id number] was introduced through the anus ?and advanced to the [facility].. The colonoscopy ?was performed without difficulty. The [...] Intra-procedure documented in this encounter Care Teams Glass Etcher Helper Relationship Specialty Start Date End Date Janice Oreilly MD PCP - General Family Practice 05/14/14 06/15/21 [facility] [address] [place] [address] documented as of this encounter
--- OUTSIDE RECORDS SUMMARY | 2022-08-10 07:26 | XMS_ITS | Encounter Summary ---
:1950 Author Organization [place] Address [address] [place] [address] Care Team Providers Name Role Phone Unavailable Primary Care Provider Unavailable Encounter Details Date Type Department Care Team Description 04/21/2010 Hospital Pathology [facility] Wilfredo Valiente MD [facility] [place] [address] (Wo rk) Social History Tobacco Use Types [...] Component Value Ref Test Analysis Performed At [facility] Range Method Time Signature Copath Report Patient Name: DESHAUN PETTIT MR#: [id number] Specimen #: [id number] Collected: 04/21/2010 Received: 04/21/2010 Reported: 04/22/2010 14:24 [...] are not well visualized. ??The differential inclu morgan hyperplastic polyp and sessile serrated adenoma. ??Given [...] entire lesion. ED/tory 04-22-10 TESTING LAB LOCATION: [address] ??[id number] COLLECTION SITE: Client: [facility] Location: ENDO (R) Specimen (Source) Anatomical Collection Method Collection Time Re ceived Time Location / / Volume Laterality 04/21/2010 04/21/2010 11:3 9 AM CDT Carmelo Valiente MD LABORATORY Performing Organization Address City/State/ZIP Code Phon e Number COPATH documented in this encounter Visit Diagnoses Not on filedocumented in this encounter
[2022-08-10 13:42] LABS: Albumin* 4.5 g/dL (3.3-5.0); Chloride* 102 mmol/L (96-114)
[2022-08-10 13:43] LABS: Potassium* 4.4 mmol/L (3.6-5.1); Sodium* 137 mmol/L (135-149)
[2022-08-10 13:45] LABS: Alanine Aminotransferase* 29 U/L (4-35); Alkaline Phosphatase* 103 U/L (40-150); Aspartate Amino Transferase* 27 U/L (12-35); Bilirubin Total* 1.3 mg/dL (0.1-1.5); Blood Urea Nitrogen* 18 mg/dL (7-30); Carbon Dioxide* 27 mmol/L (20-32); Cholesterol* 204 mg/dL (90-199); Creatinine* 0.8 mg/dL (0.5-1.5); Estimated Glomerular Filt Rate 79 ml/min; Glucose* 100 mg/dL (60-115); Triglycerides* 92 mg/dL (40-149)
[2022-08-10 13:46] LABS: Calcium* 9.2 mg/dL (8.4-10.6); HDL Cholesterol* 76 mg/dL (>=50); LDL Cholesterol Calculated 110 mg/dL (<100)
== END 2022-08-10 07:22 | disposition home or self-care (01) ==
PROVIDERS: PCP Physician Assistant Medical; Visit Provider Physician Assistant Medical
DX: E78.5 Hyperlipidemia, unspecified (principal); Z79.899 Other long term (current) drug therapy
CPT/HCPCS: 80053; 80061

== ENCOUNTER 2022-08-18 14:40 | Outpatient (CLI) | payer MEDICARE, BC, SELFPAY ==
--- OUTSIDE RECORDS SUMMARY | 2022-08-18 14:42 | XMS_ITS | Encounter Summary ---
:1950 Author Organization [place] Address [address] [place] [address] Care Team Providers Name Role Phone [facility] Unavailable Tena Romero PA-C Primary [...] on filedocumented in this encounter Care Teams Dividing Machine Operator Helper Relationship Specialty Start Date End Date Tena Romero PA-C PCP - General 06/16/21 [facility] [address] [place], [place] [phone] [facility] 06/01/17 [address] [place] [address] documented as of this encounter
--- OUTSIDE RECORDS SUMMARY | 2022-08-18 14:42 | XMS_ITS | Encounter Summary ---
:1950 Author Organization [place] Address [facility] [place] [address] Care Team Providers Name Role Phone Janice Oreilly MD Primary Care Provider Clinic, [facility] Reason for Visit Auth/Cert Specialty Diagnoses / Procedures Referred By Contact Refer red To Contact Gastroenterology Diagnoses Screening Rh Endoscopy Procedures COLONOSCOPY [address] [place] [address] Phone: Fax: Referral ID Status Reason Start Date Expiration Date Visits Requ ested Visits Authorized [id number] 1 1 Encounter Details Date Type Department Care Team Description 06/21/2017 Surgery [facility] Endoscopy Taras Aragon MD COLONOSCOPY [place] [facility] [address] [place] [address] [place] [address] [phone] (Wo rk) Surgery Details Date/Time Status Location [...] Take 2 tablets by 0 500 MG [place]. CA) 1250 MG mouth daily tablet Multiple [...] Reported, Patient calcium carbonate (OS-GRABIEL 500 MG [place]. CA) 1250 MG tablet Take 2 tablets [...] encounter Results COLONOSCOPY (06/21/2017 7:18 AM CDT) [facility] Method Time Signature COLONOSCOPY [facility] RAD IOLOGY RESULTS Patient Name: Jeanine Pettit ?Procedure Date: 06/21/2017 7:18 AM ? Accou nt Number: [id number] Date of : 1950 ? Admit Type: [...] The ?Olympus Peds Colonoscope Model #PCF-H190L, ?Endora#135, SN#[id number] was introduced through the ?anus and advanced [...] history of colonic polyps CPT copyright 2016 [employer]. All rights reserved. The codes documented in this report are prelimin hallie and upon assurance manager review may be revised to meet current compliance requirements. Electronically signed by Taras Redman MD Taras Redman MD 06/21/2017 7:53:09 AM I was physically present for the entire viewing portion of t he exam. Taras Redman MD Number of Addenda: 0 Note Initiated On: 06/21/2017 7:18 AM MRN: ?[id number] Procedure Date: ? 06/21/2017 7:18:53 AM Scope [...]
Post-procedure documented in this encounter Care Teams Director Internal Control Relationship Specialty Start Date End Date Janice Oreilly MD PCP - General Family Practice 05/14/14 06/15/21 [place] [address] [place] [address] [facility], [facility] 06/01/17 [place] [address] [place], [place] [phone] documented as of this encounter
--- OUTSIDE RECORDS SUMMARY | 2022-08-18 14:42 | XMS_ITS | Encounter Summary ---
:1950 Author Organization [place] Address [address] [place] [address]. [place] [address] Care Team Providers Name Role Phone Clinic, [facility] Unavailable Tena Romero PA-C Primary Care Provider Encounter Details Date Type Department Care Team Description 07/09/2021 Lab [facility] Taras Redman, Encounter for screening [facility] for other viral diseases [address] [place], [place] [address] GASTROINTESTINAL [phone] [place] [phone] (Wo rk) Social History Tobacco Use Types [...] the kristine SARS-CoV-2 assay on the kristine [employer] System. This test should be ordered for [...] This waldemar t was validated by the [facility] Infectious Diseases Diag nostic Laboratory. This laboratory is certified under the Clinic al Laboratory Improvement Amendments of 1988 (CLIA-88) as qualifie d to perform high and/or moderate complexity laboratory testing. Taras Redman MD LAB - MICRO GENERAL ORDERABL ES Performing Organization Address City/State/ZIP Code Phon e Number [facility] [place] [phone] Diag. Lab [address] [place] [address], [address] [facility] [place] Infectious [place], [place] [phone] Diseases Diagnostic [phone], [place] Lab (IDDL) [address] [facility], Room D297 documented in this encounter Visit Diagnoses Diagnosis Encounter for screening for other viral diseases documented in this encounter Care Teams Life Scientist Relationship Specialty Start Date End Date Tena Romero PA-C PCP - General 06/16/21 [facility] [address] [place] [address] [facility], [facility] 06/01/[address] [place] [phone] documented as of this encounter
--- OUTSIDE RECORDS SUMMARY | 2022-08-18 14:42 | XMS_ITS | Encounter Summary ---
:1950 Author Organization [place] Address [address] [place] [address] Care Team Providers Name Role Phone Unavailable Primary Care Provider Unavailable Reason for Visit Auth/Cert (Routine) - Closed Specialty Diagnoses / Procedures Referred By Contact Refer red To Contact Gastroenterology Diagnoses Polyp History Endoscopy Procedures COLONOSCOPY [address] [place] [address] Phone: Fax: Referral ID Status Reason Start Date Expiration Date Visits Requ ested Visits Authorized [id number] Closed 1 1 Encounter Details Date Type Department Care Team Description 06/05/[address] [facility] Endoscopy Trae Kay MD COLONOSCOPY [place] XXX RETIRED XXX [address] [place] [address] [place] [address] [phone] Surgery Details Date/Time Status Location OR Service [...] encounter Results COLONOSCOPY (06/05/2012 8:32 AM CDT) [facility] Method Time Signature COLONOSCOPY [facility] RAD IOLOGY RESULTS Patient Name: Jeanine Pettit ? Procedure Date: 06/05/2012 8:32:35 AM ? Date of : 1950 ? Admit Type: Outpatient ? Age: 61 ? Gender: Female ? Attending MD: Trae Rodriguez MD ? Procedure: ?Colonoscopy Indications: ?Personal histor y of colonic polyps - sessile ?[facility] Providers: ?Trae Kay MD [...]
--- OUTSIDE RECORDS SUMMARY | 2022-08-18 14:42 | XMS_ITS | Encounter Summary ---
:1950 Author Organization [place] Address [address] [place] [address] Care Team Providers Name Role Phone [facility] Unavailable Tena Romero PA-C Primary [...] on filedocumented in this encounter Care Teams Senior Corporate Strategy Manager Relationship Specialty Start Date End Date Tena Romero PA-C PCP - General 06/16/21 [place] [address] [place] [place] [phone] [facility] 06/01/[address] [place] [address] documented as of this encounter
--- OUTSIDE RECORDS SUMMARY | 2022-08-18 14:42 | XMS_ITS | Clinical Summary ---
:1950 Author Organization [place] Address [address] [place] [address]. [place] [address] Care Team Providers Name Role Phone Clinic, [facility] Unavailable Tena Romero PA-C Primary Care [...] tablets by 0 Active (OS-GRABIEL 500 MG [place]. mouth daily [place]) 1250 MG tablet Family [...] Address T ype Group Dates MEDICARE MEDICARE [id number] 2018-Prese [phone] ATTN MICHEL [place] Medicare nt 40 [address] [place] [address] BCBS [place] [id number] 2020-Prese [phone] [address] [address] Indemnity nt 00 [place] [address] Care Teams Occupational Therapy Instructor Relationship Specialty Start Date End Date Tena Romero PA-C PCP - General 06/16/21 [facility] [address] [place] [address] Clinic, [facility] 06/01/17 [address] [facility] [place] [address]
--- OUTSIDE RECORDS SUMMARY | 2022-08-18 14:42 | XMS_ITS | Encounter Summary ---
:1950 Author Organization [place] Address [address] [place] [address]. [place] [address] Care Team Providers Name Role Phone Janice Oreilly MD Primary Care Provider Clinic, [facility] Reason for Visit Auth/Cert Specialty Diagnoses / Procedures Referred By Contact Refer red To Contact Gastroenterology Diagnoses Screening Rh Endoscopy Procedures COLONOSCOPY [address] [place] [address] Phone: Fax: Referral ID Status Reason Start Date Expiration Date Visits Requ ested Visits Authorized [id number] 1 1 Encounter Details Date Type Department Care Team Description 06/21/[address] [facility] Taras Redman , Endoscopy Dayanna MILLER [address] [place], [place] GASTROINTESTINAL [address] [facility] [phone] [place], [place] [phone] (Wo rk) Social History Tobacco Use Types [...] Take 2 tablets by 0 500 MG [place]. CA) 1250 MG mouth daily tablet Multiple [...] Reported, Patient calcium carbonate (OS-GRABIEL 500 MG [place]. CA) 1250 MG tablet Take 2 tablets [...] encounter Results COLONOSCOPY (06/21/2017 7:18 AM CDT) [facility] Method Time Signature COLONOSCOPY [facility] RAD IOLOGY RESULTS Patient Name: Jeanine Pettit ?Procedure Date: 06/21/2017 7:18 AM ? Accou nt Number: [id number] Date of : 1950 ? Admit Type: [...] and ?oxygen saturations were monitored continuously. The ?AgilOne Peds Colonoscope Model #PCF-H190L, ?Endora#135, SN#[id number] was introduced through the ?anus and advanced [...] history of colonic polyps CPT copyright 2016 [employer]. All rights reserved. The codes documented in this report are prelimin hallie and upon inpatient coder review may be revised to meet current compliance requirements. Electronically signed by Taras Redman MD Taras Redman MD 06/21/2017 7:53:09 AM I was physically present for the entire viewing portion of t he exam. Taras Redman MD Number of Addenda: 0 Note Initiated On: 06/21/2017 7:18 AM MRN: ?[id number] Procedure Date: ? 06/21/2017 7:18:53 AM Scope [...]
Post-procedure documented in this encounter Care Teams Poiser Balance Relationship Specialty Start Date End Date Janice Oreilly MD PCP - General [facility] Practice 05/14/14 06/15/[address] [address] [facility], [facility] 06/01/[address] [address] documented as of this encounter
--- OUTSIDE RECORDS SUMMARY | 2022-08-18 14:42 | XMS_ITS | Encounter Summary ---
:1950 Author Organization [place] Address [address] [place] [address] Care Team Providers Name Role Phone Unavailable Primary Care Provider Unavailable Encounter Details Date Type Department Care Team Description 04/27/2011 Hospital Pathology [facility] Wilfredo Valiente MD [facility] [place] [address] (Wo rk) Social History Tobacco Use Types Packs/Day Years Used Date Never Assessed Sex Assigned at Date Recorded Not on file documented as of this encounter Plan of Treatment Not on filedocumented as of this encounter Procedures Procedure Name Priority Date/Time Associated Diagnosis Comme [facility] SURGICAL PATHOLOGY Routine 04/27/2011 12:00 AM Re sults for this EXAM CDT procedure are i n the results section. documented in this encounter Results Surgical pathology exam (04/27/2011 12:00 AM CDT) Component Value Ref Test Analysis Performed At [facility] Range Method Time Signature Copath Report Patient Name: DESHAUN PETTIT MR#: [id number] Specimen #: [id number] Collected: 04/27/2011 Received: 04/27/2011 Reported: 04/28/2011 13:28 [...] or malignancy. MGP/kd 04-28-11 TESTING LAB LOCATION: [address] ??[address] COLLECTION SITE: Client: [facility] Location: ENDO (R) Specimen (Source) Anatomical Collection Method Collection Time Re ceived Time Location / / Volume Laterality 04/27/2011 04/27/2011 8:48 AM CDT Carmelo LEE - JOHN LANGLEY Performing Organization Address City/State/ZIP Code Phon e Number COPATH documented in this encounter Visit Diagnoses Not on filedocumented in this encounter
--- OUTSIDE RECORDS SUMMARY | 2022-08-18 14:42 | XMS_ITS | Encounter Summary ---
:1950 Author Organization [place] Address [address] [place] [address]. [place] [address] Care Team Providers Name Role Phone Clinic, [facility] Tena Romero PA-C Primary Care Provider Reason for Visit Auth/Cert Specialty Diagnoses / Procedures Referred By Contact Refer red To Contact Gastroenterology Diagnoses Screen for colon cancer Screen for colon cancer [Z12.11] Endoscopy Procedures HC COLONOSCOPY W/WO BRUSH/WASH COLONOSCOPY [address] [place] [address] Phone: Fax: Referral ID Status Reason Start Date Expiration Date Visits Requ ested Visits Authorized [id number] 1 1 Encounter Details Date Type Department Care Team Description 07/13/2021 Surgery [facility] Taras Redman, COLO NOSCOPY, WITH Endoscopy Dayanna MILLER BIOPSIES USING BIOPSY [address] [facility] [place] GASTROINTESTINAL [address] [address] [place] [address] [place], [place] [address] Surgery Details Date/Time Status Location OR Service [...] Ask yourdoctor about supplemental fiber products. ?? 6511-2057 Neisha Pierre, [address] [place] [address], [place] [address]. All rights reserved. This information is not [...] needed, you may be told to take nrlu-jea-kstwvck stool softeners. To help relieve pain, antispasmodic [...] the option of having surgery with you. [place] to Colon Health Help keep your colon healthy with a diet that includes plenty of high-fiber fruits, vegetables, and whole grains. Drink plenty of liquids like water and juice. Your doctor may also recommend avoiding seeds and nuts. ?? [phone] [facility], [address] [place] [address], [place] [address]. All rights reserved. This information is not intended as a substitute for professional medical care. Always follow your healthcare professional's instructions. documented in this encounter Medications at Time of Discharge Medication Sig Dispensed Refills Start Date End Date ASPIRIN PO Take 81 mg by mouth 0 daily calcium carbonate (OS-GRABIEL Take 2 tablets by 0 500 MG [place]. CA) 1250 MG mouth daily tablet Multiple [...] Reported, Patient calcium carbonate (OS-GRABIEL 500 MG [place]. CA) 1250 MG tablet Take 2 tablets [...] Component Value Ref Test Analysis Performed At [facility] gist Range Method Time Signature Case Report Surgical Pathology Report ? Case: [id number] ? 07/14/2021 Authorizing Provider: ??Taras Aragon MD ?Collected: ? 07/13/2021 09:17 AM ? 9:43 AM CDT LABORATO RY Ordering Location: ? [facility] [place] ?Received: ?07/13/2021 10:17 AM ? Endoscopy [place] ? Pathologist: ? Melanie Kee MD PhD [...] CDT LABORATORY this testing was completed at [facility] Laboratory Specimen Anatomical Collection Method Collection Time Receive d Time (Source) Location / / Volume Laterality Biopsy STRUCTURE OF 07/13/2021 9:17 AM 1 DISTAL PORTION OF CDT 10:17 AM C DT ILEUM / Unknown Taras LEE - JOHN LANGLEY Performing Organization Address City/State/ZIP Code [place] [address] Care Lab [address] [facility] Lab (1st floor, no room number) COLONOSCOPY (07/13/2021 8:56 AM CDT) [facility] Method Time Signature COLONOSCOPY [facility] RADIOLOGY RESULTS Patient Name: Jeanine Pettit ?Procedure D ate: 07/13/2021 8:56 AM ? Accou nt Number: [id number] Date of : 1950 ? Admit Type: Out patient Age: 71 ? Gender: Female Attending MD: Taras hinds MD ?? Total Sedation Time: 12_minutes continuous bedside 1:1 Instrument Name: 222 - Adult Colonoscope Procedure: ?Colonoscopy Indications: ?High ri sk colon cancer surveillance: Personal ?history of colonic po lyps Providers: ?Taras Redman MD (Doc [facility]) Referring MD: ? Medicines: ?Midazo lambert [...] continuously. The ?Olympus Adult Colonoscope, Model # CF-GS199W, ?Endora # 222, SN # [id number] was introduced through ?the anus and advanced [...] Procedure Code(s): ? --- Professional --- ? 82866, Colonoscopy, flexible; with biopsy, single or multiple Diagnosis Code(s): ? --- Professional --- ? Z98.0, Intestinal bypass and anastomosis status ? K63.3, Ulcer of intestine ? Z86.010, Personal history of colonic polyps CPT copyright 2019 [employer]. All rights reserved. The codes documented in this report are prelimin hallie and upon yoga instructor review may be revised to meet current compliance requirements. Electronically signed by Taras Redman MD Taras Redman MD 07/13/2021 9:32:26 AM I was physically present for the entire viewing portion of t he exam. Taras Redman MD Number of Addenda: 0 Note Initiated On: 07/13/2021 8:56 AM MRN: ?[id number] Procedure Date: ? 07/13/2021 8:56:33 AM Scope [...] on Mon07/13/21 at 0810, For 1 dose, [place] throat with 1-4 spr ays 5 minutes [...] on Mon07/13/21 at 0810, For 1 dose, [place] throat with 1-4 sprays 5 minutes prior [...] provider.
documented in this encounter Care Teams Kosher Dietary Service Supervisor Relationship Specialty Start Date End Date Tena Romero PA-C PCP - General 06/16/21 [facility] [address] [place], [place] [phone] [facility], [facility] 06/01/[address] [place] [address] [address] [place], [place] [phone] documented as of this encounter
--- OUTSIDE RECORDS SUMMARY | 2022-08-18 14:42 | XMS_ITS | Encounter Summary ---
:1950 Author Organization [place] Address [address] [place] [address] Care Team Providers Name Role Phone Unavailable Primary Care Provider Unavailable Reason for Visit Auth/Cert (Routine) - Closed Specialty Diagnoses / Procedures Referred By Contact Refer red To Contact Gastroenterology Diagnoses Polyp History Rh Endoscopy Procedures COLONOSCOPY [address] [place] [address] Phone: Fax: Referral ID Status Reason Start Date Expiration Date Visits Requ ested Visits Authorized [id number] Closed 1 1 Encounter Details Date Type Department Care Team Description 06/05/2012 Hospital Encounter [facility] Wilfredo Kay MD Endoscopy [place] XXX RETIRED XXX [address] [place] [address] [place], [place] [phone] (Wo rk) [address] [phone] Social History Tobacco Use Types Packs/Day Years [...] encounter Results COLONOSCOPY (06/05/2012 8:32 AM CDT) [facility] Method Time Signature COLONOSCOPY [facility] RAD IOLOGY RESULTS Patient Name: Jeanine Pettit ? Procedure Date: 06/05/2012 8:32:35 AM ? Date of : 1950 ? Admit Type: Outpatient ? Age: 61 ? Gender: Female ? Attending MD: Trae Rodriguez MD ? Procedure: ?Colonoscopy Indications: ?Personal histor y of colonic polyps - sessile ?serrated adenoma of [facility] colon Providers: ?Trae Kay MD Referring : [...]
--- OUTSIDE RECORDS SUMMARY | 2022-08-18 14:42 | XMS_ITS | Encounter Summary ---
:1950 Author Organization [place] Address [facility] [place] [address] Care Team Providers Name Role Phone Janice Oreilly MD Primary Care Provider Reason for Visit Auth/Cert - Closed Specialty Diagnoses / Procedures Referred By Contact Refer red To Contact Gastroenterology Diagnoses HX OF POLYPS Rh Endoscopy Procedures COLONOSCOPY [address] [address] Phone: Fax: Referral ID Status Reason Start Date Expiration Date Visits Requ ested Visits Authorized [id number] Closed 1 1 Encounter Details Date Type Department Care Team Description 06/04/[address] [facility] Endoscopy Taras Aragon MD COLONOSCOPY [place] [facility] [address] [place] [address] [place] [address] [place] [address] [phone] (Wo rk) Surgery Details Date/Time Status Location [...] encounter Results COLONOSCOPY (06/04/2014 8:02 AM CDT) [facility] Method Time Signature COLONOSCOPY [facility] [...] and ?oxygen saturations were monitored continuously. The ?[facility]-H190L [id number] was introduced through the anus ?and advanced to the [facility].. The colonoscopy ?was performed without difficulty. [...] Intra-procedure documented in this encounter Care Teams Mannequin Sander And Finisher Relationship Specialty Start Date End Date Janice Oreilly MD PCP - General Family Practice 05/14/14 06/15/21 [facility] [address] [place] [address] documented as of this encounter
--- OUTSIDE RECORDS SUMMARY | 2022-08-18 14:42 | XMS_ITS | Encounter Summary ---
:1950 Author Organization [place] Address [address] [place], [place] [address]. [place] [address] Care Team Providers Name Role Phone Janice Oreilly MD Primary Care Provider Clinic, [facility] Encounter Details Date Type Department Care Team Description 05/13/2021 Orders Only [facility] Taras Redman for screening Clinic Amber Baird MD for other viral [id number] [place] [address] [facility] diseases [place], [place] GASTROINTESTINAL [address] [phone] [place], [place] [phone] Social History Tobacco Use Types Packs/Day Years [...] (07/09/2021 9:58 AM CDT) Analysis Performed At [facility] Time Signature SARS CoV2 PCR Negative Negative [...] the kristine SARS-CoV-2 assay on the kristine Kineta0 System. This test should be ordered for [...] This waldemar t was validated by the [facility] Infectious Diseases Diag nostic Laboratory. This laboratory is certified under the [facility] Laboratory Improvement Amendments of 1988 (CLIA-88) as qualifie d to perform high and/or moderate complexity laboratory testing. Taras Redman MD LAB - MICRO GENERAL ORDERABL ES Performing Organization Address City/State/ZIP Code Phon e Number [facility] [place] [address] Diag. Lab [address] [facility], Room [address] [facility] Infectious [place], [place] [phone] Diseases Diagnostic [phone], [facility] Lab (IDDL) [address] [facility], Room [address]297 documented in this encounter Visit Diagnoses Diagnosis Encounter for screening for other viral diseases documented in this encounter Care Teams Carpet Measurer Relationship Specialty Start Date End Date Janice Oreilly MD PCP - General Family Practice 05/14/14 06/15/21 [facility] [address] [place] [address] Clinic, [facility] 06/01/17 Medical [facility] [address] [place], [place] [phone] documented as of this encounter
--- OUTSIDE RECORDS SUMMARY | 2022-08-18 14:42 | XMS_ITS | Encounter Summary ---
:1950 Author Organization [place] Address [address] [place] [address]. [place] [address] Care Team Providers Name Role Phone Janice Oreilly MD Primary Care Provider Reason for Visit Auth/Cert - Closed Specialty Diagnoses / Procedures Referred By Contact Refer red To Contact Gastroenterology Diagnoses HX OF POLYPS Rh Endoscopy Procedures COLONOSCOPY [address] [place] [address] Phone: Fax: Referral ID Status Reason Start Date Expiration Date Visits Requ ested Visits Authorized [id number] Closed 1 1 Encounter Details Date Type Department Care Team Description 06/04/2014 Hospital Encounter [facility] Taras Redman , Endoscopy Dayanna MILLER [address] [place], [place] GASTROINTESTINAL [address] [address] [facility] [phone] [place], [place] [phone] (Wo rk) Social History Tobacco Use Types [...] encounter Results COLONOSCOPY (06/04/2014 8:02 AM CDT) [facility] Method Time Signature COLONOSCOPY [facility] RAD IOLOGY RESULTS Patient Name: Jeanine [...] ?oxygen saturations were monitored continuously. The ?PCF-H190L [id number] was introduced through the anus ?and advanced to the anastamosis.. The colonoscopy ?was performed without difficulty. The patient ?tolerated the procedure well. The quality of the ?bowel preparation was good. ? Findings: ? The perianal and digital rectal examinations were n ormal. The entire ? examined colon appeared normal on direct and retroflexion views. There ? were tiny apthous ulcers [facility] were not ? significant. ? Impression: [...] Intra-procedure documented in this encounter Care Teams Chop Saw Operator Relationship Specialty Start Date End Date Janice Oreilly MD PCP - General Family Practice 05/14/14 06/15/21 [facility] [address] [place] [address] documented as of this encounter
--- OUTSIDE RECORDS SUMMARY | 2022-08-18 14:42 | XMS_ITS | Encounter Summary ---
:1950 Author Organization [place] Address [address] [place] [address]. [place] [address] Care Team Providers Name Role Phone Clinic, [facility] Tena Romero PA-C Primary Care Provider Reason for Visit Auth/Cert Specialty Diagnoses / Procedures Referred By Contact Refer red To Contact Gastroenterology Diagnoses Screen for colon cancer Screen for colon cancer [Z12.11] Endoscopy Procedures HC COLONOSCOPY W/WO BRUSH/WASH COLONOSCOPY [address] [place] [address] Phone: Fax: Referral ID Status Reason Start Date Expiration Date Visits Requ ested Visits Authorized [id number] 1 1 Encounter Details Date Type Department Care Team Description 07/13/2021 Hospital Encounter [facility] Taras Redman , Endoscopy Dayanna MILLER [address] [place], [place] GASTROINTESTINAL [address] [address] [phone] [place], [place] [phone] (Wo rk) Social History Tobacco Use Types [...] Ask yourdoctor about supplemental fiber products. ?? [phone] [place] [address]. All rights reserved. This information is not [...] needed, you may be told to take ihbe-zje-[id number] stool softeners. To help relieve pain, antispasmodic [...] the option of having surgery with you. [place] [facility] Help keep your colon healthy with a diet that includes plenty of high-fiber fruits, vegetables, and whole grains. Drink plenty of liquids like water and juice. Your doctor may also recommend avoiding seeds and nuts. ?? 3722-8493 [facility], [address] [place] [address]. All rights reserved. This information is not intended as a substitute for professional medical care. Always follow your healthcare professional's instructions. documented in this encounter Medications at Time of Discharge Medication Sig Dispensed Refills Start Date End Date ASPIRIN PO Take 81 mg by mouth 0 daily calcium carbonate (OS-GRABIEL Take 2 tablets by 0 500 MG [place]. [place]) 1250 MG mouth daily tablet Multiple [...] Reported, Patient calcium carbonate (OS-GRABIEL 500 MG [place]. [place]) 1250 MG tablet Take 2 tablets [...] Component Value Ref Test Analysis Performed At [facility] Method Time Signature Case Report Surgical Pathology Report ? Case: [id number] ? 07/14/2021 Authorizing Provider: ??Taras Aragon MD ?Collected: ? 07/13/2021 09:17 AM ? 9:43 AM CDT LABORATO RY [facility] [place] ?Received: ?07/13/2021 10:17 AM ? Endoscopy [place] ? Pathologist: ? Melanie Kee, PhD ? [...] CDT LABORATORY this testing was completed at [facility] Specimen Anatomical Collection Method Collection Time Receive d Time (Source) Location / / Volume Laterality Biopsy STRUCTURE OF 07/13/2021 9:17 AM 1 DISTAL PORTION OF CDT 10:17 AM C DT ILEUM / Unknown Taras Redman MD LAB - [facility] Performing Organization Address City/State/ZIP Code Ph[place] [address] Care Lab [address] Lab (1st floor, no room number) COLONOSCOPY (07/13/2021 8:56 AM CDT) [facility] Method Time Signature COLONOSCOPY [facility] RADIOLOGY RESULTS Patient Name: Jeanine Pettit ?Procedure D ate: 07/13/2021 8:56 AM ? Accou nt Number: [id number] Date of : 1950 ? Admit Type: [...] and ?oxygen saturations were monitored continuously. The ?[employer] Adult Colonoscope, Model # CF-EV686Y, ?[place] # 222, SN # [id number] was introduced through ?the anus and advanced [...] Procedure Code(s): ? --- Professional --- ? 38066, Colonoscopy, flexible; with biopsy, single or multiple Diagnosis Code(s): ? --- Professional --- ? Z98.0, Intestinal bypass and anastomosis status ? K63.3, Ulcer of intestine ? Z86.010, Personal history of colonic polyps CPT copyright 2019 [employer]. All rights reserved. The codes documented in this report are prelimin hallie and upon extractor loader and unloader review may be revised to meet current compliance requirements. Electronically signed by Taras Redman MD Taras Redman MD 07/13/2021 9:32:26 AM I was physically present for the entire viewing portion of t he exam. Taras Redman MD Number of Addenda: 0 Note Initiated On: 07/13/2021 8:56 AM MRN: ?[id number] Procedure Date: ? 07/13/2021 8:56:33 AM Scope [...] on Mon07/13/21 at 0810, For 1 dose, [place] throat with 1-4 spr ays 5 minutes [...] on Mon07/13/21 at 0810, For 1 dose, [place] throat with 1-4 sprays 5 minutes prior [...] flush 3 mL 0910 (Given - Provider: eMrcedes Hernandez, RN) 3 mL, Intracatheter, EVERY 1 [...] provider.
documented in this encounter Care Teams Energy Infrastructure Engineer Relationship Specialty Start Date End Date Tena Romero PA-C PCP - General 06/16/21 [facility] EM[facility] [address] [place] [id number] Clinic, [facility] 06/01/[address] [place] [address] [place], [place] [phone] documented as of this encounter
--- OUTSIDE RECORDS SUMMARY | 2022-08-18 14:43 | XMS_ITS | Encounter Summary ---
:1950 Author Organization [place] Address [address] [place] [address] Care Team Providers Name Role Phone Unavailable Primary Care Provider Unavailable Encounter Details Date Type Department Care Team Description 02/06/2006 GI Procedure [facility] Trae Kay MD None Endoscopy [facility] RETIRED XXX [address] [place] [facility] [place] [address] [place] [address] [phone] Social History Tobacco Use Types Packs/Day Years Used Date Never Assessed Sex Assigned at Date Recorded Not on file documented as of this encounter Plan of Treatment Not on filedocumented as of this encounter Procedures Procedure Name Priority Date/Time Associated Diagnosis Comme nts COLONOSCOPY Routine 02/06/2006 8:40 AM Results f or this RADIO REPORTER procedure are i n the results section . documented in this encounter Results COLONOSCOPY (02/06/2006 8:40 AM RADIO REPORTER) [facility] Method Time Signature COLONOSCOPY Endoscopy RADIOLOGY RESULTS [...] oxygen saturations were monitored ?cont inuously. The [address] #[id number] was introduced through ?the anus and advanced [...] yrs. ?- Return to primary care provider [place]. ? CPT Code(s): ?44924, Colonoscopy, flexible, proxim al to splenic flexure; ?with removal of tumor(s), polyp(s), or other lesion(s) by ?snare technique ICD Code(s): ?211.3, Benign Neoplasm of Colon The codes documented in this report are prelimin hallie and upon reference data expert review may be revised to meet current [...] / / Volume Laterality 02/06/2006 8:40 AM RADIO REPORTER Trae Kay MD PROCEDURES Performing Organization Address City/State/ZIP Code Phon e Number RADIOLOGY RESULTS documented in this encounter Visit Diagnoses Not on filedocumented in this encounter
--- OUTSIDE RECORDS SUMMARY | 2022-08-18 14:43 | XMS_ITS | Encounter Summary ---
:1950 Author Organization [place] Address [address] [place] [address] Care Team Providers Name Role Phone Unavailable Primary Care Provider Unavailable Encounter Details Date Type Department Care Team Description 07/16/2010 Results Only [facility] Alfonso Brooks MD Hospital Results [address] [place], [place] [address] (Wo rk) Social History [...]
--- OUTSIDE RECORDS SUMMARY | 2022-08-18 14:43 | XMS_ITS | Encounter Summary ---
:1950 Author Organization [place] Address [address] [place] [address] Care Team Providers Name Role Phone Unavailable Primary Care Provider Unavailable Encounter Details Date Type Department Care Team Description 06/01/2010 Historic Notes INTERFACED REPORT Interface, Transcript onMD Social History Tobacco Use Types Packs/Day Years Used Date Never Assessed Sex Assigned at Date Recorded Not on file documented as of this encounter Progress Notes Interface, Consulting Sales Manager - 02/05/2011 12:09 AM CDT General Information - How to be Addressed Jeanine - Temporary Family none required Living Arrangements - Source of Information patient - Patient Belongings cell phone; clothing; left contact; right contact; glasses - personal companion #1: Jaylen Pettit - Relationship to patient #1: - Phone 1: [phone] - Cell - Patient's spoken language; Senegalese or Bilingual communication style Advance Directive - [...] abuse, self neglect, lack of adequate food, longterm, medical care, or financial exploitation)? Values/Beliefs/Spiritual Care [...] none Considerations - Developmental none Considerations - Gnosticism none Considerations Mutuality/Individual Preferences - What information [...]
--- OUTSIDE RECORDS SUMMARY | 2022-08-18 14:43 | XMS_ITS | Encounter Summary ---
:1950 Author Organization [place] Address [address] [place] [address] Care Team Providers Name Role Phone Unavailable Primary Care Provider Unavailable Encounter Details Date Type Department Care Team Description 04/16/2009 GI Procedure Anastasia Salas MD None [address] [place], [place] [address] (Wo rk) Social History [...] encounter Results COLONOSCOPY (04/16/2009 10:45 AM CDT) [facility] Method Time Signature COLONOSCOPY Endoscopy RADIOLOGY [...] were monitored continuously. The Colonoscope ? P-51 #[id number] was introduced through the anus and ? [...]
--- OUTSIDE RECORDS SUMMARY | 2022-08-18 14:43 | XMS_ITS | Encounter Summary ---
:1950 Author Organization [place] Address [address] [place] [address] Care Team Providers Name Role Phone Unavailable Primary Care Provider Unavailable Encounter Details Date Type Department Care Team Description 06/07/[address] [facility] Brandi Brooks, (Offensive Coordinator) [facility] Results [address] [place] [address] (Wo rk) Social History Tobacco Use Types Packs/Day Years Used Date Never Assessed Sex Assigned at Date Recorded Not on file documented as of this encounter Progress Notes Brandi Brooks - 06/08/2010 8:59 AM CDT FINAL SURGEON: Brandi Brooks MD SUPERVISOR PULLET FARM: Jean-Pierre Cochran MD SECOND METALS ANALYST: BILLIE Anaya PREOPERATIVE DIAGNOSIS: Serrated adenoma, right [...] MD MT: [id number] Name: DESHAUN PETTIT Account: [id number] : 1950 Procedure Date: 06/07/2010 Document: [id number] documented in this encounter Plan of Treatment Not on filedocumented as of this encounter Visit Diagnoses Not on filedocumented in this encounter
--- OUTSIDE RECORDS SUMMARY | 2022-08-18 14:43 | XMS_ITS | Encounter Summary ---
:1950 Author Organization [place] Address [address] [place] [address] Care Team Providers Name Role Phone Unavailable [...] LAB - BLOOD ORDERABLES Performing Organization Address City/[facility]/ZIP Code Phon e Number MISYS Platelet count [...]
--- OUTSIDE RECORDS SUMMARY | 2022-08-18 14:43 | XMS_ITS | Encounter Summary ---
:1950 Author Organization [place] Address [address] [place] [address] Care Team Providers Name Role Phone Unavailable Primary Care Provider Unavailable Encounter Details Date Type Department Care Team Description 04/21/2010 Results Only [facility] Anastasia Salas MD Endoscopy [place] [address] [place] [address] [place] [address] [phone] Social History Tobacco Use Types Packs/Day Years [...] encounter Results COLONOSCOPY (04/21/2010 9:45 AM CDT) [facility] Method Time Signature COLONOSCOPY [facility] RAD IOLOGY RESULTS Patient Name: Jeanine Pettit [...] ? saturations were monitored continuously. The ? PCF-Q180AL#[id number] was introduced through the anus and ? [...]
--- OUTSIDE RECORDS SUMMARY | 2022-08-18 14:43 | XMS_ITS | Encounter Summary ---
:1950 Author Organization [place] Address [address] [place] [address] Care Team Providers Name Role Phone Unavailable Primary Care Provider Unavailable Encounter Details Date Type Department Care Team Description 04/27/2011 Results Only INTERFACED REPORT Corazon Oreilly MD [facility] [address] [place], [place] [address] (Wo rk) Social History [...] encounter Results COLONOSCOPY (04/27/2011 7:13 AM CDT) [facility] Method Time Signature COLONOSCOPY [facility] RAD IOLOGY RESULTS Patient Name: Jeanine [...]
--- OUTSIDE RECORDS SUMMARY | 2022-08-18 14:43 | XMS_ITS | Encounter Summary ---
:1950 Author Organization [place] Address [address] [place] [address] Care Team Providers Name Role Phone Unavailable Primary Care Provider Unavailable Encounter Details Date Type Department Care Team Description 06/07/2010 Historic Notes INTERFACED REPORT Interface, Transcript onMD Social History Tobacco Use Types Packs/Day Years Used Date Never Assessed Sex Assigned at Date Recorded Not on file documented as of this encounter Progress Notes Interface, Metaphysics Teacher - 02/04/2011 11:43 PM CDT Patient Status - Diagnosis/Procedure Laparoscopic assisted right hemicolectomy - Physical status Stable (s/s of potential complications absent or manageable) - Psychosocial status Stable Discharge Planning - Discharge From: [facility] - Patient Care Unit: 5th floor - [...] Dr. Brooks call: - Phone number of [facility] patient should call: - Additional Leave [...]
--- OUTSIDE RECORDS SUMMARY | 2022-08-18 14:43 | XMS_ITS | Encounter Summary ---
:1950 Author Organization [place] Address [address] [place] [address] Care Team Providers Name Role Phone Unavailable Primary Care Provider Unavailable Encounter Details Date Type Department Care Team Description 04/21/[address] [facility] Wilfredo Valiente MD [facility] [place] [address] (Wo rk) Social History Tobacco Use Types [...] Component Value Ref Test Analysis Performed At [facility] Method Time Signature Copath Report Patient Name: DESHAUN PETTIT MR#: [id number] Specimen #: [id number] Collected: 04/21/2010 Received: 04/21/2010 Reported: 04/22/2010 14:24 [...] entire lesion. ED/tory 04-22-10 TESTING LAB LOCATION: [address] ??[id number] COLLECTION SITE: Client: [facility] Location: ENDO (R) Specimen (Source) Anatomical Collection Method Collection Time Re ceived Time Location / / Volume Laterality 04/21/2010 04/21/2010 11:3 9 AM CDT Carmelo Valiente MD LABORATORY Performing Organization Address City/State/ZIP Code Phon e Number [place]ATH documented in this encounter Visit Diagnoses Not on filedocumented in this encounter
--- OUTSIDE RECORDS SUMMARY | 2022-08-18 14:43 | XMS_ITS | Encounter Summary ---
:1950 Author Organization [place] Address [address] [place] [address] Care Team Providers Name Role Phone Unavailable Primary Care Provider Unavailable Encounter Details Date Type Department Care Team Description 07/22/2010 Results Only [facility] Alfonso Brooks MD Hospital Results [address] [place], [place] [address] (Wo rk) Social History [...]
--- OUTSIDE RECORDS SUMMARY | 2022-08-18 14:43 | XMS_ITS | Encounter Summary ---
:1950 Author Organization [place] Address [address] [place] [address] Care Team Providers Name Role Phone Unavailable Primary Care Provider Unavailable Encounter Details Date Type Department Care Team Description 03/05/2007 GI Procedure [facility] [place] None [place] [address] [place] [address] Social History Tobacco Use [...] encounter Results COLONOSCOPY (03/05/2007 7:20 AM CDT) [facility] Method Time Signature COLONOSCOPY Endoscopy RADIOLOGY [...] oxygen saturations were monitored ?cont inuously. The [address] #[id number] was introduced through ?the anus and advanced [...] surveillance. ?- Return to primary care provider [place]. ? R Eliza Allred Trae Kay [...]
--- OUTSIDE RECORDS SUMMARY | 2022-08-18 14:43 | XMS_ITS | Encounter Summary ---
:1950 Author Organization [place] Address [address] [place] [address] Care Team Providers Name Role Phone Unavailable Primary Care Provider Unavailable Encounter Details Date Type Department Care Team Description 11/23/2006 Results Only [facility] [place] Results Social History Tobacco Use Types Packs/Day Years Used Date Never Assessed Sex Assigned at Date Recorded Not on file documented as of this encounter Plan of Treatment Not on filedocumented as of this encounter Procedures Procedure Name Priority Date/Time Associated Diagnosis Comme [facility] MAMMOGRAM, Routine 11/23/2006 9:26 AM Results for this SCREENING BILATERAL TABLEAU DEVELOPER procedur e are in the results section. documented in this encounter Results MAMMOGRAM, SCREENING (11/23/2006 9:26 AM TABLEAU DEVELOPER) Specimen (Source) Anatomical Collection Method Collection Time Re ceived Time Location / / Volume Laterality 11/23/2006 9:26 AM TABLEAU DEVELOPER Impressions RADIOLOGY RESULTS - 11/24/2006 2:43 PM [...]
--- OUTSIDE RECORDS SUMMARY | 2022-08-18 14:43 | XMS_ITS | Encounter Summary ---
:1950 Author Organization [place] Address [address] [place] [address] Care Team Providers Name Role Phone Unavailable Primary Care Provider Unavailable Encounter Details Date Type Department Care Team Description 12/15/2009 Results [facility] Anastasia Salas MD Hospital Results [address] [place], [place] [address] (Wo rk) Social History Tobacco Use Types Packs/Day Years Used Date Never Assessed Sex Assigned at Date Recorded Not on file documented as of this encounter Plan of Treatment Not on filedocumented as of this encounter Procedures Procedure Name Priority Date/Time Associated Diagnosis Comme [facility] with [facility] MAMMO SCREEN Routine 12/15/2009 8:22 AM Result s for this BILATATERAL, INCL APPLICATIONS PROCESSOR procedure are in CAD WHEN PERF the results section. documented in this encounter Results SCREENING MAMMOGRAPHY DIGITAL (BILAT) (12/15/2009 8:22 AM APPLICATIONS PROCESSOR) Specimen (Source) Anatomical Collection Method Collection Time Re ceived Time Location / / Volume Laterality 12/15/2009 8:22 AM APPLICATIONS PROCESSOR Impressions RADIOLOGY RESULTS - 12/15/2009 11:11 AM APPLICATIONS PROCESSOR SCREENING MAMMOGRAPHY, BILATERAL, DIGITA L, w/CAD ??December 15, 2009. HISTORY/COMPARISON: Routine. 12/12/2008, 12/07/2005 BREAST PARENCHYMAL PATTERN: ??Heterogene ously dense. FINDINGS: ??Negative. ?? IMPRESSION: ??BI-RADS 1, NEGATIVE. Anastasia Salas MD SPECIAL IMAGING STUDIES Performing Organization Address City/State/ZIP Code Phon e Number RADIOLOGY RESULTS documented in this encounter Visit Diagnoses Not on filedocumented in this encounter
--- OUTSIDE RECORDS SUMMARY | 2022-08-18 14:43 | XMS_ITS | Encounter Summary ---
:1950 Author Organization [place] Address [address] [place] [address] Care Team Providers Name Role Phone Unavailable Primary Care Provider Unavailable Encounter Details Date Type Department Care Team Description 06/16/2004 Results Only Maci Peterson MD [address] [place], [place] [address] (Wo rk) Social History Tobacco Use Types [...]
--- OUTSIDE RECORDS SUMMARY | 2022-08-18 14:43 | XMS_ITS | Encounter Summary ---
:1950 Author Organization [place] Address [address] [place] [address] Care Team Providers Name Role Phone Unavailable [...]
--- OUTSIDE RECORDS SUMMARY | 2022-08-18 14:43 | XMS_ITS | Encounter Summary ---
:1950 Author Organization [place] Address [address] [place] [address] Care Team Providers Name Role Phone Unavailable Primary Care Provider Unavailable Encounter Details Date Type Department Care Team Description 12/12/2008 Results Only [facility] Anastasia Salas MD Hospital Results [address] [place], [place] [address] (Wo rk) Social History Tobacco Use Types Packs/Day Years Used Date Never Assessed Sex Assigned at Date Recorded Not on file documented as of this encounter Plan of Treatment Not on filedocumented as of this encounter Procedures Procedure Name Priority Date/Time Associated Diagnosis Comme [facility] MAMMO SCREEN Routine 12/12/2008 9:19 AM Result s for this BILATATERAL, INCL WHEEL SHOP SUPERVISOR procedure are in CAD WHEN PERF the results section. documented in this encounter Results SCREENING MAMMOGRAPHY DIGITAL (BILAT) (12/12/2008 9:19 AM WHEEL SHOP SUPERVISOR) Specimen (Source) Anatomical Collection Method Collection Time Re ceived Time Location / / Volume Laterality 12/12/2008 9:19 AM WHEEL SHOP SUPERVISOR Impressions RADIOLOGY RESULTS - 12/12/2008 9:44 AM [...]
--- OUTSIDE RECORDS SUMMARY | 2022-08-18 14:43 | XMS_ITS | Encounter Summary ---
:1950 Author Organization [place] Address [address] [place] [address] Care Team Providers Name Role Phone Unavailable Primary Care Provider Unavailable Encounter Details Date Type Department Care Team Description 06/07/2010 Hospital Pathology [facility] Jaylen Madrid MD [facility] Results [address] [place], [place] [address] (Wo rk) Social History [...] Value Ref Test Analysis Performed At [facility] Range Method Time Signature Copath Report Patient Name: DESHAUN BARNES MR#: [id number] Specimen #: [id number] Collected: 06/07/2010 Received: 06/07/2010 Reported: 06/09/2010 17:38 [...] nod es identified within the mesenteric fat. ??Sole Sewer Hand sections are emb edded in 13 cassettes. [...] are examined. [place] 06-09-10 TESTING LAB LOCATION: [address] ??[id number] COLLECTION SITE: Client: [facility] Location: [facility] (R) Specimen (Source) Anatomical Collection Method Collection Time Re ceived Time Location / / Volume Laterality 06/07/2010 06/07/2010 11:3 9 AM CDT Alfonso Madrid MD LABORATORY Performing Organization Address City/State/ZIP Code Phon e Number COPATH documented in this encounter Visit Diagnoses Not on filedocumented in this encounter
--- OUTSIDE RECORDS SUMMARY | 2022-08-18 14:43 | XMS_ITS | Encounter Summary ---
:1950 Author Organization [place] Address [address] [place] [address] Care Team Providers Name Role Phone Unavailable Primary Care Provider Unavailable Encounter Details Date Type Department Care Team Description 02/06/2006 Historic Results INTERFACED REPORT Carmelo [place] [address] (Wo rk) Social History Tobacco Use Types Packs/Day Years Used Date Never Assessed Sex Assigned at Date Recorded Not on file documented as of this encounter Plan of Treatment Not on filedocumented as of this encounter Procedures Procedure Name Priority Date/Time Associated Diagnosis Comme nts HISTOPATHOLOGY Routine 02/06/2006 12:00 AM Result s for this CAT SKINNER procedure are i n the results section . documented in this encounter Results Histopathology (02/06/2006 12:00 AM CAT SKINNER) Component Value Ref Test Analysis Performed At [facility] Range Method Time Signature Copath Report CASE: [id number] ^ COPATH Patient Name: DESHAUN PETTIT MR#: [id number] Specimen #: [id number] Collected: 02/06/2006 Received: 02/06/2006 Reported: 02/07/2006 15:55 [...] are present. MGP/sg 02-07-06 TESTING LAB LOCATION: [address] ??[address] COLLECTION SITE: Client: [facility] Location: ENDO (R) Specimen (Source) Anatomical Collection Method Collection Time Re ceived Time Location / / Volume Laterality 02/06/2006 02/07/2006 3:56 PM CAT SKINNER Carmelo Valiente MD LAB - COP[facility] SPECIAL DIAG OR DERABLES Performing Organization Address City/State/ZIP Code Phon e Number COPATH documented in this encounter Visit Diagnoses Not on filedocumented in this encounter
--- OUTSIDE RECORDS SUMMARY | 2022-08-18 14:43 | XMS_ITS | Encounter Summary ---
:1950 Author Organization [place] Address [address] [place] [address] Care Team Providers Name Role Phone Unavailable Primary Care Provider Unavailable Encounter Details Date Type Department Care Team Description 04/16/2009 Historic Results INTERFACED REPORT Carmelo Valiente [place] [address] (Wo rk) Social History Tobacco Use Types [...] Value Ref Test Analysis Performed At [facility] Range Method Time Signature Copath Report CASE: [id number] ^ COPATH Patient Name: DESHAUN PETTIT MR#: [id number] Specimen #: [id number] Collected: 04/16/2009 Received: 04/16/2009 Reported: 04/17/2009 13:58 [...] ad enoma(s). ED/tory 04-17-09 TESTING LAB LOCATION: [address] ??[phone] COLLECTION SITE: Client: [facility] Location: ENDO (R) Specimen (Source) Anatomical Collection Method Collection Time Re ceived Time Location / / Volume Laterality 04/16/2009 04/17/2009 1:59 PM CDT Carmelo Valiente MD LAB - [place] SPECIAL DIAG OR DERABLES Performing Organization Address City/State/ZIP Code Phon e Number COPATH documented in this encounter Visit Diagnoses Not on filedocumented in this encounter
--- OUTSIDE RECORDS SUMMARY | 2022-08-18 14:43 | XMS_ITS | Encounter Summary ---
:1950 Author Organization [place] Address [address] [place] [address] Care Team Providers Name Role Phone Unavailable Primary Care Provider Unavailable Encounter Details Date Type Department Care Team Description 06/11/2010 Discharge Summary [facility] Brandi Madrid, (Supervisor Bakery Sanitation) [facility] Results [address] [place] [address] (Wo rk) Social History Tobacco [...] care ofher incisions and the use of [place] as needed for pain management at home. [...] PA-C MT: [id number] Name: DESHAUN BARNES Account: [id number] : 1950 Admit Date: Discharge Date: 06/11/2010 Document: [id number] cc: Anastasia Whitaker NP documented in this encounter Plan of Treatment Not on filedocumented as of this encounter Visit Diagnoses Not on filedocumented in this encounter
--- OUTSIDE RECORDS SUMMARY | 2022-08-18 14:43 | XMS_ITS | Encounter Summary ---
:1950 Author Organization [place] Address [address] [place] [address] Care Team Providers Name Role Phone Unavailable Primary Care Provider Unavailable Encounter Details Date Type Department Care Team Description 11/27/2007 Results Only [facility] Results Social History Tobacco Use Types Packs/Day Years Used Date Never Assessed Sex Assigned at Date Recorded Not on file documented as of this encounter Plan of Treatment Not on filedocumented as of this encounter Procedures Procedure Name Priority Date/Time Associated Diagnosis Comme [facility] MAMMOGRAM, Routine 11/27/2007 9:41 AM Results for this SCREENING BILATERAL PATCH PRESS OPERATOR procedur e are in the results section. documented in this encounter Results MAMMOGRAM, SCREENING (11/27/2007 9:41 AM PATCH PRESS OPERATOR) Specimen (Source) Anatomical Collection Method Collection Time Re ceived Time Location / / Volume Laterality 11/27/2007 9:41 AM PATCH PRESS OPERATOR Impressions RADIOLOGY RESULTS - 11/28/2007 3:[address] EXAM: BILATERAL SCREENING MAMMOGRAPHY HISTORY/COMPARISON: ??Routine screening. 12/17/02, 11/23/06 Breast parenchyma: Heterogeneous. FINDINGS: Negative. IMPRESSION: Category 1. Negative. [place] SPECIAL IMAGING STUDIES Performing Organization Address City/State/ZIP Code Phon e Number RADIOLOGY RESULTS documented in this encounter Visit Diagnoses Not on filedocumented in this encounter
--- OUTSIDE RECORDS SUMMARY | 2022-08-18 14:43 | XMS_ITS | Encounter Summary ---
:1950 Author Organization [place] Address [address] [place] [address] Care Team Providers Name Role Phone Unavailable Primary Care Provider Unavailable Encounter Details Date Type Department Care Team Description 12/07/2005 Results Only [facility] [place] Results Social History Tobacco Use Types Packs/Day Years Used Date Never Assessed Sex Assigned at Date Recorded Not on file documented as of this encounter Plan of Treatment Not on filedocumented as of this encounter Procedures Procedure Name Priority Date/Time Associated Diagnosis Comme nts C MAMMOGRAM, Routine 12/07/2005 1:37 PM Results f or this SCREENING WATER SUPERVISOR procedure are i n the results section. documented in this encounter Results MAMMOGRAM, SCREENING (12/07/2005 1:37 PM WATER SUPERVISOR) Specimen (Source) Anatomical Collection Method Collection Time Re ceived Time Location / / Volume Laterality 12/07/2005 1:37 PM WATER SUPERVISOR Impressions RADIOLOGY RESULTS - 12/09/2005 8:[address] SCREENING MAMMOGRAM, BILATERAL BREAST SYMPTOMS: None PREVIOUS MAMMOGRAPHY: Comparison with [facility] dated 12/14/01 and [facility] Breast dated 11/30/04. ??There is no significant change. BREAST PARENCHYMA: ??Heterogeneously de nse. IMPRESSION: CATEGORY 1 Negative TECHNOLOGIST INITIALS: YULIANA [facility] SPECIAL IMAGING STUDIES Performing Organization Address City/State/ZIP Code Phon e Number RADIOLOGY RESULTS documented in this encounter Visit Diagnoses Not on filedocumented in this encounter
--- OUTSIDE RECORDS SUMMARY | 2022-08-18 14:43 | XMS_ITS | Encounter Summary ---
:1950 Author Organization [place] Address [address] [place] [address] Care Team Providers Name Role Phone Unavailable Primary Care Provider Unavailable Encounter Details Date Type Department Care Team Description 12/01/2004 Results Only [facility] Results Maci Peterson MD [address] [place], [place] [address] (Wo rk) Social History Tobacco Use Types Packs/Day Years Used Date Never Assessed Sex Assigned at Date Recorded Not on file documented as of this encounter Plan of Treatment Not on filedocumented as of this encounter Procedures Procedure Name Priority Date/Time Associated Diagnosis Comme nts C MAMMOGRAM, Routine 12/01/2004 1:43 PM Results f or this SCREENING AUTOMOTIVE MANUFACTURER procedure are i n the results section. documented in this encounter Results MAMMOGRAM, SCREENING (12/01/2004 1:43 PM AUTOMOTIVE MANUFACTURER) Specimen (Source) Anatomical Collection Method Collection Time Re ceived Time Location / / Volume Laterality 12/01/2004 1:43 PM AUTOMOTIVE MANUFACTURER Impressions Pacs, Data Conversion - 12/02/2004 5:18 PM AUTOMOTIVE MANUFACTURER EXAM: Bilateral analog screening Mammogr aphy with [...]
--- NOTE | 2022-08-18 15:00 | CRLHL7_ITS ---
For Patients: As a result of the Century Cures Act, medical imaging exams and procedure reports are released immediately into your electronic medical record. You may view this report before your referring provider. If you have questions, please contact your health care provider. DXA BONE MINERAL DENSITY STUDY Reason for exam: Osteopenia. Current height (in): 64. Weight (lb): 150. Menopause age: 46 Ethnicity: White 1. Have you had a previous hip or vertebral fracture? No. 2. Have you had any fractures during your adult life which did not result from significant trauma (e.g., auto accident)? No. 3. Did either of your parents have a hip fracture? No. 4. Do you smoke? No. 5. Have you ever taken Glucocorticoids? No. 6. Do you have rheumatoid arthritis? No. 7. Do you have secondary osteoporosis? No. 8. Do you drink 3 or more alcoholic drinks per day? Yes. 9. Are you being treated for osteoporosis? No. 10. Have you ever taken any of the following medications: Actonel, Evista, Fosamax, Miacalcin, Reclast, Boniva, Forteo, HRT (i.e. estrogen/hormone therapy), Protelos, Prolia, Vitamin D, Calcium, other ??? please specify. ANSWER: Yes, Fosamax, vitamin D, and calcium. 11. Do you have any of the following medical conditions: Anorexia or bulimia, asthma or emphysema, end stage renal disease, hyperparathyroidism, any seizure disorders, cancer, inflammatory bowel diseases, hysterectomy, other ??? please specify. ANSWER: No. 12. What was your maximum height (inches)? 64.5. 13. Do you perform weight bearing exercise regularly? No. 14. Do you regularly consume dairy products? No. 15. Do you drink caffeinated beverages? Yes. If female: 16. At what age did your period start? 14. 17. Are you premenopausal? No. 18. How many full term pregnancies have you had? 2. 19. Have you ever missed your period for more than 6 months in a row (not including or menopause)? No. TECHNIQUE: Bone mineral density study was performed using the Microstim Wi. FINDINGS: The results of the study expressed as bone mineral density (BMD) are as follows: Lumbar spine L1 to L4: BMD: 0.786 g/cm2. T-score: -2.4. Z-score: -0.2 Neck Left: BMD: 0.644 g/cm2. T-score: -1.9. Z-score: 0.0 Right: BMD: 0.681 g/cm2. T-score: -1.5. Z-score: 0.3 Total Left: BMD: 0.813 g/cm2. T-score: -1.1. Z-score: 0.5 Right: BMD: 0.885 g/cm2. T-score: -0.5. Z-score: 1.1 IMPRESSION: Osteopenia. *Comparison exams done prior to 04/2020 were performed on different unit, [facility]. COMPARISON: Compared with scan of 08/13/2020, the bone mineral density has decreased by 1.3 percent at the spine and increased by 1.0 percent at the hip. Compared with scan of 08/01/2016, the bone mineral density has decreased by 2.5 percent at the spine and increased by 2.9 percent at the hip. FRAX 10-year Fracture Risk Major Osteoporotic Fracture: 14% Hip Fracture: 3.2% Reported Risk Factors: [place] () Neck BMD=0.644, BMI= 25.7, alcohol use Brandon Stallings M.D. Diagnostic Radiologist [email or web address] cortez/Dictated by: Brandon Stallings MD @ 08/19/2022 8:17:00 AM (Electronically Signed)
== END 2022-08-18 14:41 | disposition home or self-care (01) ==
LOC: RAD 14:40
PROVIDERS: PCP Physician Assistant Medical; Visit Provider Physician Assistant Medical
DX: M85.80 Other specified disorders of bone density and structure, unspecified site (principal); Z78.0 Asymptomatic menopausal state
CPT/HCPCS: 77080

== ENCOUNTER 2022-10-31 09:19 | Outpatient (CLI) | payer MEDICARE, BC, SELFPAY ==
--- OUTSIDE RECORDS SUMMARY | 2022-10-31 08:26 | XMS_ITS | Encounter Summary ---
:1950 Author Organization [place] Address [address] [place] [address] Care Team Providers Name Role Phone Clinic, [facility] Unavailable Tena Romero PA-C Primary Care Provider Reason for Visit Auth/Cert Specialty Diagnoses / Procedures Referred By Contact Refer red To Contact Gastroenterology Diagnoses Screen for colon cancer Screen for colon cancer [Z12.11] Endoscopy Procedures HC COLONOSCOPY W/WO BRUSH/WASH COLONOSCOPY [address] [place] [address] Phone: Fax: Referral ID Status Reason Start Date Expiration Date Visits Requ ested Visits Authorized [id number] 1 1 Encounter Details Date Type Department Care Team Description 07/13/2021 Hospital Encounter [facility] Taras Redman , Endoscopy Dayanna MILLER [address] [place], [place] GASTROINTESTINAL [phone] [place] [address] [place], [place] [address] (Wo rk) Social History Tobacco Use Types Packs/Day Years Used Date Smoking Tobacco: Former Cigarettes Quit : 06/05/1988 Smokeless Tobacco: Former Alcohol Use Standard Drinks/Week Comments Yes 0 (1 standard drink = 0.6 oz pure alcoho l) 1-2 glasses daily Sex Assigned at Date Recorded Not on [...] Ask yourdoctor about supplemental fiber products. ?? [phone] [place] [address]. All rights reserved. This information is not [...] needed, you may be told to take meun-czo-lwyxxol stool softeners. To help relieve pain, antispasmodic [...] the option of having surgery with you. [facility] Help keep your colon healthy with a diet that includes plenty of high-fiber fruits, vegetables, and whole grains. Drink plenty of liquids like water and juice. Your doctor may also recommend avoiding seeds and nuts. ?? [phone] [place] [address]. All rights reserved. This information is not intended as a substitute for professional medical care. Always follow your healthcare professional's instructions. documented in this encounter Medications at Time of Discharge Medication Sig Dispensed Refills Start Date End Date ASPIRIN PO Take 81 mg by mouth 0 daily calcium carbonate (OS-GRABIEL Take 2 tablets by 0 500 MG WASHOE. CA) 1250 MG mouth daily tablet Multiple [...] Reported, Patient calcium carbonate (OS-GRABIEL 500 MG WASHOE. CA) 1250 MG tablet Take 2 tablets [...] Component Value Ref Test Analysis Performed At [facility] Range Method Time Signature Case Report Surgical Pathology Report ? Case: [id number] ? 07/14/2021 Authorizing Provider: ??Taras Aragon MD ?Collected: ? 07/13/2021 09:17 AM ? 9:43 AM CDT LABORATO RY Ordering Location: ? [facility] [place] ?Received: ?07/13/2021 10:17 AM ? Endoscopy [place] ? Pathologist: ? Melanie Kee MD PhD [...] CDT LABORATORY this testing was completed at [facility] Laboratory Specimen Anatomical Collection Method Collection Time Receive d Time (Source) Location / / Volume Laterality Biopsy STRUCTURE OF 07/13/2021 9:17 AM 1 DISTAL PORTION OF CDT 10:17 AM C DT ILEUM / Unknown Taras LEE - JOHN LANGLEY Performing Organization Address City/State/ZIP Code [place] [address] Care Lab [address] [facility] Lab (1st floor, no room number) COLONOSCOPY (07/13/2021 8:56 AM CDT) [facility] Method Time Signature COLONOSCOPY [facility] RADIOLOGY RESULTS Patient Name: Jeanine CostaGarret Pettit ?Procedure D ate: 07/13/2021 8:56 AM ? Accou nt Number: [id number] Date of : 1950 ? Admit Type: [...] and ?oxygen saturations were monitored continuously. The ?Partnered Adult Colonoscope, Model # CF-MU340R, ?[place] # [id number], SN # [id number] was introduced through ?the anus and advanced [...] Procedure Code(s): ? --- Professional --- ? 32325, Colonoscopy, flexible; with biopsy, single or multiple Diagnosis Code(s): ? --- Professional --- ? Z98.0, Intestinal bypass and anastomosis status ? K63.3, Ulcer of intestine ? Z86.010, Personal history of colonic polyps CPT copyright 2019 [employer] [place] [employer]. All rights reserved. The codes documented in this report are prelimin hallie and upon horseshoer review may be revised to meet current compliance requirements. Electronically signed by Taras Redman MD Taras Redman MD 07/13/2021 9:32:26 AM I was physically present for the entire viewing portion of t he exam. Taras Redman MD Number of Addenda: 0 Note Initiated On: 07/13/2021 8:56 AM MRN: ?[id number] Procedure Date: ? 07/13/2021 8:56:33 AM Scope [...] mL (1-4 spray), Mouth/Throat, ONCE PRN, moderate pain (4-6), Starting on Mon07/13/21 at 0810, For 1 dose, Naches throat with 1-4 spr ays 5 minutes [...] on Mon07/13/21 at 0810, For 1 dose, Naches throat with 1-4 sprays 5 minutes prior [...] provider.
documented in this encounter Care Teams Director Title Relationship Specialty Start Date End Date Tena Romero PA-C PCP - General 06/16/21 [facility] [address] [place] [address] [place], [place] [id number] Clinic, [facility] 06/01/[address] [place] [address] [phone] documented as of this encounter
--- OUTSIDE RECORDS SUMMARY | 2022-10-31 08:26 | XMS_ITS | Clinical Summary ---
:1950 Author Organization [place] Address [address] [facility] [place] [address] Care Team Providers Name Role Phone Clinic, [facility] Unavailable Tena Romero PA-C Primary Care [...] tablets by 0 Active (OS-GRABIEL 500 MG ALUTIIQ. mouth daily CA) 1250 MG tablet Family [...] 08/22/2016 Years ZOSTER IMMUNIZATION Completed 01/07/2020, 08/14/2019 IPV IMMUNIZATION Aged Out No longer eligi ble based on patient 's age to complete this topic MENINGITIS IMMUNIZATION Aged Out No longe r eligible based on patient 's age to complete this topic Insurance Payer Benefit Plan / Subscriber ID Effective Phone Address T ype Group Dates MEDICARE MEDICARE [id number] 2018-Prese [phone] ATTN MICHEL [place] Medicare nt 40 [address] [place] [address] BCBS BC[place] OF [place] [id number] 2020-Prese [phone] [address] [address] Indemnity nt [address] [place] [address] Care Teams Ambulatory Services Representative Relationship Specialty Start Date End Date Tena Romero PA-C PCP - General 06/16/21 [facility] [address] [place] [address] [place] [address] [facility], [facility] 06/01/[address] [place] [address]
--- OUTSIDE RECORDS SUMMARY | 2022-10-31 08:26 | XMS_ITS | Encounter Summary ---
:1950 Author Organization [place] Address [facility] [place] [address] Care Team Providers Name Role Phone Janice Oreilly MD Primary Care Provider Clinic, [facility] Unavailable Encounter Details Date Type Department Care Team Description 05/13/2021 Orders Only [facility] Taras Redman er for screening Clinic Amber Baird MD for other viral [id number] [place] [address] N [place], [place] GASTROINTESTINAL [address] [phone] [place] [address] Social History Tobacco Use Types Packs/Day Years Used Date Smoking Tobacco: Former Cigarettes Quit : 06/05/1988 Smokeless Tobacco: Former Alcohol Use Standard Drinks/Week Comments Yes 0 (1 standard drink = 0.6 oz pure alcoho l) daily Sex Assigned at Date Recorded Not on file documented as of this encounter Plan of Treatment Not on filedocumented as of this encounter Results Asymptomatic COVID-19 Virus (Coronavirus) by PCR Nasopharyngeal (07/09/2021 9:58 AM CDT) Analysis Performed At [facility] Time Signature SARS CoV2 PCR Negative Negative [...] the kristine SARS-CoV-2 assay on the kristine 6800 System. This test should be ordered for [...] This waldemar t was validated by the [facility] Infectious Diseases Diag nostic Laboratory. This laboratory is certified under the [facility] Laboratory Improvement Amendments of 1988 (CLIA-88) as qualifie d to perform high and/or moderate complexity laboratory testing. Taras Redman MD LAB - MICRO GENERAL ORDERABL ES Performing Organization Address City/State/ZIP Code Phon e Number [facility] [place] [address] Diag. Lab [address] [facility], Room [address]297 [facility] Infectious [place], [place] [phone] Diseases Diagnostic [phone] Lab (IDDL) [address] [facility], Room D297 documented in this encounter Visit Diagnoses Diagnosis Encounter for screening for other viral diseases documented in this encounter Care Teams Lamps Tester And Inspector Relationship Specialty Start Date End Date Janice Oreilly MD PCP - General Family Practice 05/14/14 06/15/21 [place] [address] [id number] [facility] 06/01/[address] [place] [address] documented as of this encounter
--- OUTSIDE RECORDS SUMMARY | 2022-10-31 08:26 | XMS_ITS | Encounter Summary ---
:1950 Author Organization [place] Address [address] [facility] [place] [address] Care Team Providers Name Role Phone Janice Oreilly MD Primary Care Provider Clinic, [facility] Reason for Visit Auth/Cert Specialty Diagnoses / Procedures Referred By Contact Refer red To Contact Gastroenterology Diagnoses Screening Rh Endoscopy Procedures COLONOSCOPY [address] [place] [address] Phone: Fax: Referral ID Status Reason Start Date Expiration Date Visits Requ ested Visits Authorized [id number] 1 1 Encounter Details Date Type Department Care Team Description 06/21/2017 Hospital Encounter [facility] Taras Redman , Endoscopy Dayanna MILLER [address] [place], [place] GASTROINTESTINAL [address] [facility] [phone] [place] [address] (Wo rk) Social History Tobacco Use Types [...] Take 2 tablets by 0 500 MG [place]. [place]) 1250 MG mouth daily tablet Multiple [...] Reported, Patient calcium carbonate (OS-GRABIEL 500 MG [place]. [place]) 1250 MG tablet Take 2 tablets [...] encounter Results COLONOSCOPY (06/21/2017 7:18 AM CDT) [facility] Time Signature COLONOSCOPY [facility] RAD IOLOGY RESULTS Patient Name: Jeanine Pettit ?Procedure Date: 06/21/2017 7:18 AM ? Accou nt Number: [id number] Date of : 1950 ? Admit Type: Out patient Age: 66 ? Gender: Female Attending MD: Taras Redman MD ?? Total Sedation Time: 17 min. Instrument Name: 135 ? Procedure: ?Colonoscopy Indications: ?High ri sk colon cancer surveillance: Personal ?history of colonic po lyps Providers: ?Taras Redman MD (Doc tor) Referring MD: ? Janice Oreilly Md, MD (Referring MD), Ofelia ?MD Arden (Referri marcell MILLER) Medicines: ?Midazolam [...] The ?Olympus Peds Colonoscope Model #PCF-H190L, ?Endora#135, SN#[id number] was introduced through the ?anus and advanced [...] history of colonic polyps CPT copyright 2016 [employer]. All rights reserved. The codes documented in this report are prelimin hallie and upon biological inspector review may be revised to meet current compliance requirements. Electronically signed by Taras Redman MD Taras Redman MD 06/21/2017 7:53:09 AM I was physically present for the entire viewing portion of t he exam. Taras Redman MD Number of Addenda: 0 Note Initiated On: 06/21/2017 7:18 AM MRN: ?[id number] Procedure Date: ? 06/21/2017 7:18:53 AM Scope [...] dure ondansetron (ZOFRAN) injection 4 mg (COMPLETED) 753 (Given - Provider: Anastasia Dyer RN - [...]
Post-procedure documented in this encounter Care Teams Drying Oven Attendant Relationship Specialty Start Date End Date Janice Oreilly MD PCP - General [facility] Practice 05/14/14 06/15/[address] [place], [place] [phone] Clinic, [facility] 06/01/[address] [id number] documented as of this encounter
--- OUTSIDE RECORDS SUMMARY | 2022-10-31 08:26 | XMS_ITS | Encounter Summary ---
:1950 Author Organization [place] Address [address] [facility] [place] [address] Care Team Providers Name Role Phone Clinic, [facility] Unavailable Tena Romero PA-C Primary Care Provider Reason for Visit Auth/Cert Specialty Diagnoses / Procedures Referred By Contact Refer red To Contact Gastroenterology Diagnoses Screen for colon cancer Screen for colon cancer [Z12.11] Endoscopy Procedures HC COLONOSCOPY W/WO BRUSH/WASH COLONOSCOPY [address] [place] [address] Phone: Fax: Referral ID Status Reason Start Date Expiration Date Visits Requ ested Visits Authorized [id number] 1 1 Encounter Details Date Type Department Care Team Description 07/13/2021 Surgery [facility] Taras Redman, COLO NOSCOPY, WITH Endoscopy Dayanna MILLER BIOPSIES USING BIOPSY [address] [place], [place] GASTROINTESTINAL [address] [phone] [place], [place] [address] Surgery Details Date/Time Status Location OR Service Patient Class Case Case Trauma Class Type Case? 07/13/21 9:00 Posted GI GI A Gastroenterology Outpatient AM Panel 1 Procedure LRB Anes Op Region Wound Class Commen ts COLONOSCOPY, WITH N/A Conscious Sedation Rectum II-Clean C ontaminated BIOPSIES USING BIOPSY FORCEP Surgeon Surgeon Role Service Panel Taras Redman MD Primary Gastroenterology 1 Special Needs mircharlie ps 06/25, BR (fv) documented in this [...] documented in this encounter Discharge Instructions Discharge Celina Heaton RN - 07/13/2021 9:32 AM CDT Images [...] Ask yourdoctor about supplemental fiber products. ?? [id number] Neisha [facility], [address] [place] [address], [place] [address]. All rights reserved. This information is not [...] needed, you may be told to take oxkp-fcw-[id number] stool softeners. To help relieve pain, antispasmodic [...] the option of having surgery with you. [facility] Colon Health Help keep your colon healthy with a diet that includes plenty of high-fiber fruits, vegetables, and whole grains. Drink plenty of liquids like water and juice. Your doctor may also recommend avoiding seeds and nuts. ?? 1987-2773 [facility], [address] [place] [address], [place] [address]. All rights reserved. This information is not intended as a substitute for professional medical care. Always follow your healthcare professional's instructions. documented in this encounter Medications at Time of Discharge Medication Sig Dispensed Refills Start Date End Date ASPIRIN PO Take 81 mg by mouth 0 daily calcium carbonate (OS-GRABIEL Take 2 tablets by 0 500 MG [place]. CA) 1250 MG mouth daily tablet Multiple [...] Reported, Patient calcium carbonate (OS-GRABIEL 500 MG [place]. CA) 1250 MG tablet Take 2 tablets [...] Component Value Ref Test Analysis Performed At [facility] gist Range Method Time Signature Case Report Surgical Pathology Report ? Case: [id number] ? 07/14/2021 RH Authorizing Provider: ??Taras Aragon MD ?Collected: ? 07/13/2021 09:17 AM ? 9:43 AM CDT LABORATO RY Ordering Location: ? [facility] [place] ?Received: ?07/13/2021 10:17 AM ? End[facility] [place] ? Pathologist: ? Melanie Kee MD PhD [...] CDT LABORATORY this testing was completed at [facility] Laboratory Specimen Anatomical Collection Method Collection Time Receive d Time (Source) Location / / Volume Laterality Biopsy STRUCTURE OF 07/13/2021 9:17 AM 1 DISTAL PORTION OF CDT 10:17 AM C DT ILEUM / Unknown Taras LEE - JOHN LANGLEY Performing Organization Address City/State/ZIP Code [place] [address] Care Lab [address] Lab (1st floor, no room number) COLONOSCOPY (07/13/2021 8:56 AM CDT) [facility] Method Time Signature COLONOSCOPY [facility] RADIOLOGY RESULTS Patient Name: Jeanine Pettit ?Procedure D ate: 07/13/2021 8:56 AM ? Accou nt Number: [id number] Date of : 1950 ? Admit Type: [...] continuously. The ?Olympus Adult Colonoscope, Model # CF-ON662G, ?Endora # 222, SN # [id number] was introduced through ?the anus and advanced [...] Procedure Code(s): ? --- Professional --- ? 97955, Colonoscopy, flexible; with biopsy, single or multiple Diagnosis Code(s): ? --- Professional --- ? Z98.0, Intestinal bypass and anastomosis status ? K63.3, Ulcer of intestine ? Z86.010, Personal history of colonic polyps CPT copyright 2019 [employer]. All rights reserved. The codes documented in this report are prelimin hallie and upon biomedical repair technician review may be revised to meet current compliance requirements. Electronically signed by Taras Redman MD Taras Redman MD 07/13/2021 9:32:26 AM I was physically present for the entire viewing portion of t he exam. Taras Redman MD Number of Addenda: 0 Note Initiated On: 07/13/2021 8:56 AM MRN: ?[id number] Procedure Date: ? 07/13/2021 8:56:33 AM Scope [...] on Mon07/13/21 at 0810, For 1 dose, Derwent throat with 1-4 spr ays 5 minutes [...] chloride (PF) 0.9% PF flush 3 mL 829 (Canceled Entry - Provider: Orders Generic Provider [...] on Mon07/13/21 at 0810, For 1 dose, Derwent throat with 1-4 sprays 5 minutes prior [...] provider.
documented in this encounter Care Teams Call Center Coordinator Relationship Specialty Start Date End Date Tena Romero PA-C PCP - General 06/16/21 [facility] [address] [place] [address] [id number] [facility], [facility] 06/01/[address] [place] [address] documented as of this encounter
--- OUTSIDE RECORDS SUMMARY | 2022-10-31 08:26 | XMS_ITS | Encounter Summary ---
:1950 Author Organization [place] Address [address] [place] [address] Care Team Providers Name Role Phone [facility], [facility] Unavailable Tena Romero PA-C Primary Care [...] on filedocumented in this encounter Care Teams Roll Line Operator Relationship Specialty Start Date End Date Tena Romero PA-C PCP - General 06/16/21 [facility] [address] [place] [address] [facility] 06/01/[address] [place] [address] [phone] documented as of this encounter
--- OUTSIDE RECORDS SUMMARY | 2022-10-31 08:26 | XMS_ITS | Encounter Summary ---
:1950 Author Organization [place] Address [address] [place] [address] Care Team Providers Name Role Phone [facility], [facility] Unavailable Tena Romero PA-C Primary Care [...] on filedocumented in this encounter Care Teams Grocery Shopper Relationship Specialty Start Date End Date Tena Romero PA-C PCP - General 06/16/21 [facility] [address] [place] [address] [place] [address] [facility] 06/01/[address] [place] [address] [phone] documented as of this encounter
--- OUTSIDE RECORDS SUMMARY | 2022-10-31 08:26 | XMS_ITS | Encounter Summary ---
:1950 Author Organization [place] Address [address] [facility] [place] [address] Care Team Providers Name Role Phone Janice Oreilly MD Primary Care Provider Clinic, [facility] Reason for Visit Auth/Cert Specialty Diagnoses / Procedures Referred By Contact Refer red To Contact Gastroenterology Diagnoses Screening Rh Endoscopy Procedures COLONOSCOPY [address] [place] [address] Phone: Fax: Referral ID Status Reason Start Date Expiration Date Visits Requ ested Visits Authorized [id number] 1 1 Encounter Details Date Type Department Care Team Description 06/21/2017 Surgery [facility] Endoscopy Taras Aragon MD COLONOSCOPY [place] [facility] GASTROINTESTINAL [address] [facility] [address] [place] [address] [place] [address] [phone] (Wo rk) Surgery Details Date/Time Status Location [...] Take 2 tablets by 0 500 MG [place]. CA) 1250 MG mouth daily tablet Multiple [...] Reported, Patient calcium carbonate (OS-GRABIEL 500 MG [place]. CA) 1250 MG tablet Take 2 tablets [...] encounter Results COLONOSCOPY (06/21/2017 7:18 AM CDT) [facility] Method Time Signature COLONOSCOPY [facility] RAD IOLOGY RESULTS Patient Name: Jeanine Pettit ?Procedure Date: 06/21/2017 7:18 AM ? Accou nt Number: [id number] Date of : 1950 ? Admit Type: [...] The ?Olympus Peds Colonoscope Model #PCF-H190L, ?Endora#135, SN#[id number] was introduced through the ?anus and advanced [...] history of colonic polyps CPT copyright 2016 [employer]. All rights reserved. The codes documented in this report are prelimin hallie and upon behavioral health aide review may be revised to meet current compliance requirements. Electronically signed by Taras Redman MD Taras Redman MD 06/21/2017 7:53:09 AM I was physically present for the entire viewing portion of t he exam. Taras Redman MD Number of Addenda: 0 Note Initiated On: 06/21/2017 7:18 AM MRN: ?[id number] Procedure Date: ? 06/21/2017 7:18:53 AM Scope [...]
Post-procedure documented in this encounter Care Teams Hand Straightener Relationship Specialty Start Date End Date Janice Oreilly MD PCP - General [facility] Practice 05/14/14 06/15/21 [place] [address] [place] [address] [facility], [facility] 06/01/[address] [place] [id number] documented as of this encounter
--- OUTSIDE RECORDS SUMMARY | 2022-10-31 08:26 | XMS_ITS | Encounter Summary ---
:1950 Author Organization [place] Address [facility] [address] Care Team Providers Name Role Phone Janice Oreilly MD Primary Care Provider Reason for Visit Auth/Cert - Closed Specialty Diagnoses / Procedures Referred By Contact Refer red To Contact Gastroenterology Diagnoses HX OF POLYPS Rh Endoscopy Procedures COLONOSCOPY [address] [place] [address] Phone: Fax: Referral ID Status Reason Start Date Expiration Date Visits Requ ested Visits Authorized [id number] Closed 1 1 Encounter Details Date Type Department Care Team Description 06/04/[address] [facility] Taras Redman , Endoscopy Dayanna MILLER [address] [place], [place] GASTROINTESTINAL [address] [address] [facility] [phone] [place], [place] [phone] (Wo rk) Social History Tobacco Use Types [...] encounter Results COLONOSCOPY (06/04/2014 8:02 AM CDT) [facility] Method Time Signature COLONOSCOPY [facility] RAD IOLOGY RESULTS Patient Name: Jeanine [...] ?oxygen saturations were monitored continuously. The ?PCF-H190L [id number] was introduced through the anus ?and advanced to the anastamosis.. The colonoscopy ?was performed without difficulty. The patient ?tolerated the procedure well. The quality of the ?bowel preparation was good. ? Findings: ? The perianal and digital rectal examinations were n ormal. The entire ? examined colon appeared normal on direct and retroflexion views. There ? were tiny apthous ulcers seen at the [facility] were not ? significant. ? Impression: [...] Intra-procedure documented in this encounter Care Teams Bit Bender Relationship Specialty Start Date End Date Janice Oreilly MD PCP - General Family Practice 05/14/14 06/15/21 [facility] MEDICAL [place] [address] [place] [address] documented as of this encounter
--- OUTSIDE RECORDS SUMMARY | 2022-10-31 08:26 | XMS_ITS | Encounter Summary ---
:1950 Author Organization [place] Address [address] [facility] [place] [address] Care Team Providers Name Role Phone Janice Oreilly MD Primary Care Provider Reason for Visit Auth/Cert - Closed Specialty Diagnoses / Procedures Referred By Contact Refer red To Contact Gastroenterology Diagnoses HX OF POLYPS Rh Endoscopy Procedures COLONOSCOPY [address] [place] [address] Phone: Fax: Referral ID Status Reason Start Date Expiration Date Visits Requ ested Visits Authorized [id number] Closed 1 1 Encounter Details Date Type Department Care Team Description 06/04/[address] [facility] Endoscopy Taras Aragon MD COLONOSCOPY [place] GASTROINTESTINAL [address] [place] [address] [place] [address] [place] [address] [phone] (Wo rk) Surgery Details Date/Time Status Location [...] encounter Results COLONOSCOPY (06/04/2014 8:02 AM CDT) [facility] Method Time Signature COLONOSCOPY [facility] RAD IOLOGY RESULTS Patient Name: Jeanine Pettit [...] ?oxygen saturations were monitored continuously. The ?PCF-H190L [id number] was introduced through the anus ?and advanced to the anastamosis.. The colonoscopy ?was performed without difficulty. The patient ?tolerated the procedure well. The quality of the ?bowel preparation was good. ? Findings: ? The perianal and digital rectal examinations were n ormal. The entire ? examined colon appeared normal on direct and retroflexion views. There ? [facility] ? significant. ? Impression: [...] 06/02/2014 06/03/2014 06/04/2014 fentaNYL (SUBLIMAZE) injection (CANCELED) 0807 (Given - Provider: Taras Redman MD) PRN, Starting Mon06/04/14 at 0807, moderate to severe pain, Intr a-procedure midazolam (VERSED) injection (CANCELED) 0807 (Given - Provider: Taras Redman MD) PRN, Starting Mon06/04/14 at 0807, anxiety, Intra-procedure documented in this encounter Care Teams Portrait Artist Relationship Specialty Start Date End Date Janice Oreilly MD PCP - General Family Practice 05/14/14 06/15/21 [facility] [address], [place] [address] documented as of this encounter
--- OUTSIDE RECORDS SUMMARY | 2022-10-31 08:27 | XMS_ITS | Encounter Summary ---
:1950 Author Organization [place] Address [address] [place] [address]. [place] [address] Care Team Providers Name Role Phone Unavailable Primary Care Provider Unavailable Encounter Details Date Type Department Care Team Description 11/23/2006 Results Only [facility] Results Social History Tobacco Use Types Packs/Day Years Used Date Smoking Tobacco: Never Assessed Sex Assigned at Date Recorded Not on file documented as of this encounter Plan of Treatment Not on filedocumented as of this encounter Procedures Procedure Name Priority Date/Time Associated Diagnosis Comme [facility] MAMMOGRAM, Routine 11/23/2006 9:26 AM Results for this SCREENING BILATERAL SENIOR GRADUATE ADVISOR procedur e are in the results section. documented in this encounter Results MAMMOGRAM, SCREENING (11/23/2006 9:26 AM SENIOR GRADUATE ADVISOR) Anatomical Region Laterality Modality Other Specimen (Source) Anatomical Collection Method Collection Time Re ceived Time Location / / Volume Laterality 11/23/2006 9:26 AM SENIOR GRADUATE ADVISOR Impressions 11/24/2006 2:43 PM SENIOR GRADUATE ADVISOR Exam: Bilateral screening mammography History/Comparison: ??ROUTINE 12-07-05, Breast parenchyma: heterogeneously dense Findings: Negative. . ?? Impression: Category 1. Negative. This exam was evaluated with the assista nce of computer aided detection ??(CAD). [facility] SPECIAL IMAGING STUDIES documented in this encounter Visit Diagnoses Not on filedocumented in this encounter
--- OUTSIDE RECORDS SUMMARY | 2022-10-31 08:27 | XMS_ITS | Encounter Summary ---
:1950 Author Organization [place] Address [address] [place] [address] Care Team Providers Name Role Phone Unavailable [...] Address City/State/ZIP Code Phon e Number [place] Platelet count [...]
--- OUTSIDE RECORDS SUMMARY | 2022-10-31 08:27 | XMS_ITS | Encounter Summary ---
:1950 Author Organization [place] Address [address] [place] [address]. [place] [address] Care Team Providers Name Role Phone Unavailable Primary Care Provider Unavailable Encounter Details Date Type Department Care Team Description 11/27/2007 Results Only [facility] Results Social History Tobacco Use Types Packs/Day Years Used Date Smoking Tobacco: Never Assessed Sex Assigned at Date Recorded Not on file documented as of this encounter Plan of Treatment Not on filedocumented as of this encounter Procedures Procedure Name Priority Date/Time Associated Diagnosis Comme [facility] MAMMOGRAM, Routine 11/27/2007 9:41 AM Results for this SCREENING BILATERAL BEAM WARPER procedur e are in the results section. documented in this encounter Results MAMMOGRAM, SCREENING (11/27/2007 9:41 AM BEAM WARPER) Anatomical Region Laterality Modality Other Specimen (Source) Anatomical Collection Method Collection Time Re ceived Time Location / / Volume Laterality 11/27/2007 9:41 AM BEAM WARPER Impressions 11/28/2007 3:11 PM BEAM WARPER EXAM: BILATERAL SCREENING MAMMOGRAPHY HISTORY/COMPARISON: ??Routine screening. 12/17/02, 11/23/06 Breast parenchyma: Heterogeneous. FINDINGS: Negative. IMPRESSION: Category 1. Negative. [facility] SPECIAL IMAGING STUDIES documented in this encounter Visit Diagnoses Not on filedocumented in this encounter
--- OUTSIDE RECORDS SUMMARY | 2022-10-31 08:27 | XMS_ITS | Encounter Summary ---
:1950 Author Organization [place] Address [address] [place] [address]. [place] [address] Care Team Providers Name Role Phone Unavailable Primary Care Provider Unavailable Encounter Details Date Type Department Care Team Description 12/07/2005 Results Only [facility] Results Social History Tobacco Use Types Packs/Day Years Used Date Smoking Tobacco: Never Assessed Sex Assigned at Date Recorded Not on file documented as of this encounter Plan of Treatment Not on filedocumented as of this encounter Procedures Procedure Name Priority Date/Time Associated Diagnosis Comme nts C MAMMOGRAM, Routine 12/07/2005 1:37 PM Results f or this SCREENING TAX COMPLIANCE REPRESENTATIVE procedure are i n the results section. documented in this encounter Results MAMMOGRAM, SCREENING (12/07/2005 1:37 PM TAX COMPLIANCE REPRESENTATIVE) Anatomical Region Laterality Modality Other Specimen (Source) Anatomical Collection Method Collection Time Re ceived Time Location / / Volume Laterality 12/07/2005 1:37 PM TAX COMPLIANCE REPRESENTATIVE Impressions 12/09/2005 8:19 AM TAX COMPLIANCE REPRESENTATIVE SCREENING MAMMOGRAM, BILATERAL BREAST SYMPTOMS: None PREVIOUS MAMMOGRAPHY: Comparison with [facility] dated 12/14/01 and [facility] Breast dated 11/30/04. ??There is no significant change. BREAST PARENCHYMA: ??Heterogeneously de nse. IMPRESSION: CATEGORY 1 Negative TECHNOLOGIST INITIALS: YUL[facility]NA [facility] SPECIAL IMAGING STUDIES documented in this encounter Visit Diagnoses Not on filedocumented in this encounter
--- OUTSIDE RECORDS SUMMARY | 2022-10-31 08:27 | XMS_ITS | Encounter Summary ---
:1950 Author Organization [place] Address [address] [place] [address] Care Team Providers Name Role Phone Unavailable Primary Care Provider Unavailable Encounter Details Date Type Department Care Team Description 06/07/2010 Hospital Pathology [facility] Jaylen Madrid MD [facility] Results [address] [place], [place] [address] (Wo rk) Social History [...] Component Value Ref Test Analysis Performed At [facility] Range Method Time Signature Copath Report Patient Name: DESHAUN BARNES MR#: [id number] Specimen #: [id number] Collected: 06/07/2010 Received: 06/07/2010 Reported: 06/09/2010 17:38 [...] nod es identified within the mesenteric fat. ??Rn Clinical Appeals sections are emb edded in 13 cassettes. [...] are examined. Leland 06-09-10 TESTING LAB LOCATION: [address] ??[phone] COLLECTION SITE: Client: [facility] Location: [facility] (R) Specimen (Source) Anatomical Collection Method Collection Time Re ceived Time Location / / Volume Laterality 06/07/2010 06/07/2010 11:3 9 AM CDT Alfonso Madrid MD LABORATORY Performing Organization Address City/State/ZIP Code Phon e Number COPATH documented in this encounter Visit Diagnoses Not on filedocumented in this encounter
--- OUTSIDE RECORDS SUMMARY | 2022-10-31 08:27 | XMS_ITS | Encounter Summary ---
:1950 Author Organization [place] Address [address] [place] [address]. [place] [address] Care Team Providers Name Role Phone Unavailable Primary Care Provider Unavailable Encounter Details Date Type Department Care Team Description 12/12/[address] [facility] Results [address] [place], [place] [address] (Wo rk) Social History Tobacco Use Types Packs/Day Years Used Date Smoking Tobacco: Never Assessed Sex Assigned at Date Recorded Not on file documented as of this encounter Plan of Treatment Not on filedocumented as of this encounter Procedures Procedure Name Priority Date/Time Associated Diagnosis Comme nts HC MAMMO SCREEN Routine 12/12/2008 9:19 AM Result s for this BILATATERAL, INCL DATA PROCESSING OPERATOR procedure are in CAD WHEN PERF the results section. documented in this encounter Results SCREENING MAMMOGRAPHY DIGITAL (BILAT) (12/12/2008 9:19 AM DATA PROCESSING OPERATOR) Anatomical Region Laterality Modality Other Specimen (Source) Anatomical Collection Method Collection Time Re ceived Time Location / / Volume Laterality 12/12/2008 9:19 AM DATA PROCESSING OPERATOR Impressions 12/12/2008 9:44 AM DATA PROCESSING OPERATOR SCREENING MAMMOGRAM, BILATERAL, DIGITAL w/ CAD BREAST SYMPTOMS/COMPARISON:Routine. ??11-27-07, 12-07-05 BREAST PARENCHYMAL PATTERN: Heterogeneou sly dense. COMMENTS: Negative. IMPRESSION: BI-RADS 1, NEGATIVE. Anastasia Salas MD SPECIAL IMAGING STUDIES documented in this encounter Visit Diagnoses Not on filedocumented in this encounter
--- OUTSIDE RECORDS SUMMARY | 2022-10-31 08:27 | XMS_ITS | Encounter Summary ---
:1950 Author Organization [place] Address [address] [place] [address] Care Team Providers Name Role Phone Unavailable [...]
--- OUTSIDE RECORDS SUMMARY | 2022-10-31 08:27 | XMS_ITS | Encounter Summary ---
:1950 Author Organization [place] Address [address] [place] [address]. [place] [address] Care Team Providers Name Role Phone Unavailable Primary Care Provider Unavailable Encounter Details Date Type Department Care Team Description 12/01/2004 Results Only [facility] Results Maci Peterson MD [address] [place] [address] (Wo rk) Social History Tobacco Use Types Packs/Day Years Used Date Smoking Tobacco: Never Assessed Sex Assigned at Date Recorded Not on file documented as of this encounter Plan of Treatment Not on filedocumented as of this encounter Procedures Procedure Name Priority Date/Time Associated Diagnosis Comme nts C MAMMOGRAM, Routine 12/01/2004 1:43 PM Results f or this SCREENING MOTEL FOOD SERVICE SUPERVISOR procedure are i n the results section. documented in this encounter Results MAMMOGRAM, SCREENING (12/01/2004 1:43 PM MOTEL FOOD SERVICE SUPERVISOR) Anatomical Region Laterality Modality Other Specimen (Source) Anatomical Collection Method Collection Time Re ceived Time Location / / Volume Laterality 12/01/2004 1:43 PM MOTEL FOOD SERVICE SUPERVISOR Impressions 12/02/2004 5:18 PM MOTEL FOOD SERVICE SUPERVISOR EXAM: Bilateral analog screening Mammogr aphy with [...]
--- OUTSIDE RECORDS SUMMARY | 2022-10-31 08:27 | XMS_ITS | Encounter Summary ---
:1950 Author Organization [place] Address [address] [place] [address] Care Team Providers Name Role Phone Unavailable Primary Care Provider Unavailable Encounter Details Date Type Department Care Team Description 03/05/2007 GI Procedure [facility] Endoscopy [facility] None [place] [address] [place] [address] Social History Tobacco Use [...] encounter Results COLONOSCOPY (03/05/2007 7:20 AM CDT) [facility] Method Time Signature COLONOSCOPY Endoscopy RADIOLOGY [...] direct vision. Throughout the procedure, the patient's ?kenya bardales pressure, pulse, and oxygen saturations were monitored ?cont inuously. The [id number] #[id number] was introduced through ?the anus and advanced [...] surveillance. ?- Return to primary care provider [place]. ? R Eliza Allred Trae Kay [...]
--- OUTSIDE RECORDS SUMMARY | 2022-10-31 08:27 | XMS_ITS | Encounter Summary ---
:1950 Author Organization [place] Address [address] [place] [address]. [place] [address] Care Team Providers Name Role Phone Unavailable Primary Care Provider Unavailable Encounter Details Date Type Department Care Team Description 07/22/2010 Results Only [facility] Alfonso Brooks MD Hospital Results [address] [place], [place] [address] (Wo rk) Social History [...] CT SCAN ABDOMEN/PELVIS (07/22/2010 2:34 PM CDT) Anatomical Region Laterality Modality Other Specimen (Source) Anatomical Collection Method Collection Time Re ceived Time Location / / Volume Laterality 07/22/2010 2:34 PM CDT Impressions 07/23/2010 8:[address] ABDOMEN/PELVIS WITH CONTRAST ??Jul 22, 2010 [...] nodes. Alfonso Brooks MD SPECIAL IMAGING STUDIES documented in this encounter Visit Diagnoses Not on filedocumented in this encounter
--- OUTSIDE RECORDS SUMMARY | 2022-10-31 08:27 | XMS_ITS | Encounter Summary ---
:1950 Author Organization [place] Address [address] [place] [address] Care Team Providers Name Role Phone Unavailable Primary Care Provider Unavailable Encounter Details Date Type Department Care Team Description 04/21/[address] [facility] Wilfredo Valiente MD [facility] [place] [address] (Wo rk) Social History Tobacco Use Types [...] Component Value Ref Test Analysis Performed At [facility] Range Method Time Signature Copath Report Patient Name: DESHAUN PETTIT MR#: [id number] Specimen #: [id number] Collected: 04/21/2010 Received: 04/21/2010 Reported: 04/22/2010 14:24 [...] re presentative of the entire lesion. ED/tory /04-22-10 TESTING LAB LOCATION: [address] ??[phone] COLLECTION SITE: Client: [facility] Location: ENDO (R) Specimen (Source) Anatomical Collection Method Collection Time Re ceived Time Location / / Volume Laterality 04/21/2010 04/21/2010 11:3 9 AM CDT Carmelo Valiente MD LABORATORY Performing Organization Address City/State/ZIP Code Phon e Number COPATH documented in this encounter Visit Diagnoses Not on filedocumented in this encounter
--- OUTSIDE RECORDS SUMMARY | 2022-10-31 08:27 | XMS_ITS | Encounter Summary ---
:1950 Author Organization [place] Address [address] [place] [address] Care Team Providers Name Role Phone Unavailable Primary Care Provider Unavailable Reason for Visit Auth/Cert (Routine) - Closed Specialty Diagnoses / Procedures Referred By Contact Refer red To Contact Gastroenterology Diagnoses Polyp History Rh Endoscopy Procedures COLONOSCOPY [address] [place] [address] Phone: Fax: Referral ID Status Reason Start Date Expiration Date Visits Requ ested Visits Authorized [id number] Closed 1 1 Encounter Details Date Type Department Care Team Description 06/05/2012 Hospital Encounter [facility] Wilfredo Kay MD Endoscopy [place] [address] [facility] [place] [address] [place], [place] [phone] (Wo rk) [address] [phone] Social History Tobacco Use Types Packs/Day Years [...] encounter Results COLONOSCOPY (06/05/2012 8:32 AM CDT) [facility] Method Time Signature COLONOSCOPY [facility] RAD IOLOGY RESULTS Patient Name: Jeanine Pettit ? Procedure Date: 06/05/2012 8:32:35 AM ? Date of : 1950 ? Admit Type: Outpatient ? Age: 61 ? Gender: Female ? Attending MD: Trae Rodriguez MD ? Procedure: ?Colonoscopy Indications: ?Personal histor y of colonic polyps - sessile ?serrated adenoma of [facility] colon Providers: ?Trae Kay MD Referring MD: [...]
--- OUTSIDE RECORDS SUMMARY | 2022-10-31 08:27 | XMS_ITS | Encounter Summary ---
:1950 Author Organization [place] Address [address] [place] [address] Care Team Providers Name Role Phone Unavailable Primary Care Provider Unavailable Encounter Details Date Type Department Care Team Description 02/06/2006 Historic Results INTERFACED REPORT Carm[place] [address] (Wo rk) Social History Tobacco Use Types Packs/Day Years Used Date Smoking Tobacco: Never Assessed Sex Assigned at Date Recorded Not on file documented as of this encounter Plan of Treatment Not on filedocumented as of this encounter Procedures Procedure Name Priority Date/Time Associated Diagnosis Comme [facility] HISTOPATHOLOGY Routine 02/06/2006 12:00 AM Result s for this PILOT TEACHER procedure are i n the results section . documented in this encounter Results Histopathology (02/06/2006 12:00 AM PILOT TEACHER) Component Value Ref Test Analysis Performed At [facility] Range Method Time Signature Copath Report CASE: [id number] ^ COPATH Patient Name: DESHAUN PETTIT MR#: [id number] Specimen #: [id number] Collected: 02/06/2006 Received: 02/06/2006 Reported: 02/07/2006 15:55 [...] are present. MGP/sg 02-07-06 TESTING LAB LOCATION: [address] ??[phone] COLLECTION SITE: Client: [facility] Location: ENDO (R) Specimen (Source) Anatomical Collection Method Collection Time Re ceived Time Location / / Volume Laterality 02/06/2006 02/07/2006 3:56 PM PILOT TEACHER Carmelo Valiente MD LAB - COPATH SPECIAL DIAG OR DERABLES Performing Organization Address City/State/ZIP Code Phon e Number COPATH documented in this encounter Visit Diagnoses Not on filedocumented in this encounter
--- OUTSIDE RECORDS SUMMARY | 2022-10-31 08:27 | XMS_ITS | Encounter Summary ---
:1950 Author Organization [place] Address [address] [place] [address] Care Team Providers Name Role Phone Unavailable Primary Care Provider Unavailable Encounter Details Date Type Department Care Team Description 04/27/2011 Hospital Pathology [facility] Wilfredo Valiente MD [facility] [place] [address] (Wo rk) Social History Tobacco Use Types Packs/Day Years Used Date Smoking Tobacco: Never Assessed Sex Assigned at Date Recorded Not on file documented as of this encounter Plan of Treatment Not on filedocumented as of this encounter Procedures Procedure Name Priority Date/Time Associated Diagnosis Comme [facility] SURGICAL PATHOLOGY Routine 04/27/2011 12:00 AM Re sults for this EXAM CDT procedure are i n the results section. documented in this encounter Results Surgical pathology exam (04/27/2011 12:00 AM CDT) Component Value Ref Test Analysis Performed At [facility] Range Method Time Signature Copath Report Patient Name: DESHAUN PETTIT MR#: [id number] Specimen #: [id number] Collected: 04/27/2011 Received: 04/27/2011 Reported: 04/28/2011 13:28 [...] or malignancy. MGP/kd 04-28-11 TESTING LAB LOCATION: [address] ??[phone] COLLECTION SITE: Client: [facility] Location: ENDO (R) Specimen (Source) Anatomical Collection Method Collection Time Re ceived Time Location / / Volume Laterality 04/27/2011 04/27/2011 8:48 AM CDT Carmelo LEE - JOHN LANGLEY Performing Organization Address City/State/ZIP Code Phon e Number COPATH documented in this encounter Visit Diagnoses Not on filedocumented in this encounter
--- OUTSIDE RECORDS SUMMARY | 2022-10-31 08:27 | XMS_ITS | Encounter Summary ---
:1950 Author Organization [place] Address [address] [place] [address]. [place] [address] Care Team Providers Name Role Phone Unavailable Primary Care Provider Unavailable Encounter Details Date Type Department Care Team Description 06/07/2010 Operative Report [facility] Brandi Brooks, (Benefits Consulting Analyst) [facility] Results [address] [facility] [address] [place] [address] (Wo rk) Social History Tobacco Use Types Packs/Day Years Used Date Smoking Tobacco: Never Assessed Sex Assigned at Date Recorded Not on file documented as of this encounter Progress Notes Brandi Brooks - 06/08/2010 8:59 AM CDT FINAL SURGEON: Brandi Brooks MD BUSH REGENERATOR: Jean-Pierre Cochran MD SECOND HELPDESK TECHNICIAN: BILLIE Anaya PREOPERATIVE DIAGNOSIS: Serrated adenoma, right [...] BROOKS MD MT: [id number] Name: DESHAUN PETTIT MRN: [id number] Account: [id number] : 1950 Procedure Date: 06/07/2010 Document: [id number] documented in this encounter Plan of Treatment Not on filedocumented as of this encounter Visit Diagnoses Not on filedocumented in this encounter
--- OUTSIDE RECORDS SUMMARY | 2022-10-31 08:27 | XMS_ITS | Encounter Summary ---
:1950 Author Organization [place] Address [address] [place] [address]. [place] [address] Care Team Providers Name Role Phone Unavailable Primary Care Provider Unavailable Encounter Details Date Type Department Care Team Description 07/16/2010 Results Only [facility] Alfonso Brooks MD Hospital Results [address] [place], [place] [address] (Wo rk) Social History Tobacco Use Types Packs/Day Years Used Date Smoking Tobacco: Never Assessed Sex Assigned at Date Recorded Not on file documented as of this encounter Plan of Treatment Not on filedocumented as of this encounter Procedures Procedure Name Priority Date/Time Associated Diagnosis Comme nts UPPER GI & SMALL Routine 07/16/2010 11:27 AM R esults for this INTESTINE CDT procedure are i n the results section. documented in this encounter Results XRAY UPPER GI TRACT + SBS (07/16/2010 11:27 AM CDT) Anatomical Region Laterality Modality Other Specimen (Source) Anatomical Collection Method Collection Time Re ceived Time Location / / Volume Laterality 07/16/2010 11:27 AM CDT Impressions 07/16/2010 2:50 PM CDT UPPER GASTROINTESTINAL SMALL BOWEL ??Jul 16, 2010 [...] evaluation. Alfonso Brooks MD SPECIAL IMAGING STUDIES documented in this encounter Visit Diagnoses Not on filedocumented in this encounter
--- OUTSIDE RECORDS SUMMARY | 2022-10-31 08:27 | XMS_ITS | Encounter Summary ---
:1950 Author Organization [place] Address [address] [place] [address]. [place] [address] Care Team Providers Name Role Phone Unavailable Primary Care Provider Unavailable Encounter Details Date Type Department Care Team Description 04/27/2011 Results Only INTERFACED REPORT Corazon Oreilly MD [facility] [address] [facility] [place], [place] [address] (Wo rk) Social History [...] encounter Results COLONOSCOPY (04/27/2011 7:13 AM CDT) [facility] Method Time Signature COLONOSCOPY [place] [...]
--- OUTSIDE RECORDS SUMMARY | 2022-10-31 08:27 | XMS_ITS | Encounter Summary ---
:1950 Author Organization [place] Address [address] [place] [address]. [place] [address] Care Team Providers Name Role Phone Unavailable Primary Care Provider Unavailable Encounter Details Date Type Department Care Team Description 12/15/2009 [facility] Results [address] [place], [place] [address] (Wo rk) Social History Tobacco Use Types Packs/Day Years Used Date Smoking Tobacco: Never Assessed Sex Assigned at Date Recorded Not on file documented as of this encounter Plan of Treatment Not on filedocumented as of this encounter Procedures Procedure Name Priority Date/Time Associated Diagnosis Comme nts MAMMO SCREEN Routine 12/15/2009 8:22 AM Result s for this BILATATERAL, INCL OUTBOUND SALES CONSULTANT procedure are in CAD WHEN PERF the results section. documented in this encounter Results SCREENING MAMMOGRAPHY DIGITAL (BILAT) (12/15/2009 8:22 AM OUTBOUND SALES CONSULTANT) Anatomical Region Laterality Modality Other Specimen (Source) Anatomical Collection Method Collection Time Re ceived Time Location / / Volume Laterality 12/15/2009 8:22 AM OUTBOUND SALES CONSULTANT Impressions 12/15/2009 11:11 AM OUTBOUND SALES CONSULTANT SCREENING MAMMOGRAPHY, BILATERAL, DIGITA L, w/CAD ??December 15, 2009. HISTORY/COMPARISON: Routine. 12/12/2008, 12/07/2005 BREAST PARENCHYMAL PATTERN: ??Heterogene ously dense. FINDINGS: ??Negative. ?? IMPRESSION: ??BI-RADS 1, NEGATIVE. Anastasia Salas MD SPECIAL IMAGING STUDIES documented in this encounter Visit Diagnoses Not on filedocumented in this encounter
--- OUTSIDE RECORDS SUMMARY | 2022-10-31 08:27 | XMS_ITS | Encounter Summary ---
:1950 Author Organization [place] Address [address] [place] [address]. [place] [address] Care Team Providers Name Role Phone Unavailable Primary Care Provider Unavailable Reason for Visit Auth/Cert (Routine) - Closed Specialty Diagnoses / Procedures Referred By Contact Refer red To Contact Gastroenterology Diagnoses Polyp History Rh Endoscopy Procedures COLONOSCOPY [address] [place] [address] Phone: Fax: Referral ID Status Reason Start Date Expiration Date Visits Requ ested Visits Authorized [id number] Closed 1 1 Encounter Details Date Type Department Care Team Description 06/05/2012 Surgery [facility] Endoscopy Trae Kay MD COLONOSCOPY [place] RETIRED XXX [address] [place] [address] [place] [address] [phone] Surgery Details Date/Time Status Location OR Service [...] encounter Results COLONOSCOPY (06/05/2012 8:32 AM CDT) [facility] Method Time Signature COLONOSCOPY [facility] RAD IOLOGY RESULTS Patient Name: Jeanine Pettit ? Procedure Date: 06/05/2012 8:32:35 AM ? Date of : 1950 ? Admit Type: Outpatient ? Age: 61 ? Gender: Female ? Attending MD: Trae Rodriguez MD ? Procedure: ?Colonoscopy Indications: ?Personal histor y of colonic polyps - sessile ?serrated [facility]oma [facility] colon Providers: ?Trae Kay MD Referring [...]
--- OUTSIDE RECORDS SUMMARY | 2022-10-31 08:27 | XMS_ITS | Encounter Summary ---
:1950 Author Organization [place] Address [address] [place] [address]. [place] [address] Care Team Providers Name Role Phone Unavailable Primary Care Provider Unavailable Encounter Details Date Type Department Care Team Description 06/16/2004 Results Only Maci Peterson MD [address] [place], [place] [address] (Wo rk) Social History Tobacco Use Types [...] Results MAMMOGRAM, SCREENING (06/16/2004 12:15 PM CDT) Anatomical Region Laterality Modality Other Specimen (Source) Anatomical Collection Method Collection Time Re ceived Time Location / / Volume Laterality 06/16/2004 12:15 PM CDT Impressions 06/18/2004 10:51 AM CDT EXAM: Bilateral analog [...]
--- OUTSIDE RECORDS SUMMARY | 2022-10-31 08:27 | XMS_ITS | Encounter Summary ---
:1950 Author Organization [place] Address [address] [place] [address]. [place] [address] Care Team Providers Name Role Phone Unavailable Primary Care Provider Unavailable Encounter Details Date Type Department Care Team Description 06/11/2010 Discharge Summary [facility] Brandi Madrid, (Director Enterprise Data Architecture) [facility] Results [address] [facility] [address] [place] [address] (Wo rk) Social History Tobacco [...] care ofher incisions and the use of [place] as needed for pain management at home. [...] As dictated by DASHAWN HOBSON PA-C MT: [id number] Name: DESHAUN BARNES Account: [id number] : 1950 Admit Date: [id number] Discharge Date: 06/11/2010 Document: [id number] cc: Anastasia Whitaker NP documented in this encounter Plan of Treatment Not on filedocumented as of this encounter Visit Diagnoses Not on filedocumented in this encounter
--- OUTSIDE RECORDS SUMMARY | 2022-10-31 08:27 | XMS_ITS | Encounter Summary ---
:1950 Author Organization [place] Address [address] [place] [address] Care Team Providers Name Role Phone Unavailable Primary Care Provider Unavailable Encounter Details Date Type Department Care Team Description 02/06/2006 GI Procedure [facility] Trae Kay MD None [facility]oscopy [place] XX RETIRED XXX [address], located [facility] [place] [address] [place] [address] [phone] Social History Tobacco Use Types Packs/Day Years Used Date Smoking Tobacco: Never Assessed Sex Assigned at Date Recorded Not on file documented as of this encounter Plan of Treatment Not on filedocumented as of this encounter Procedures Procedure Name Priority Date/Time Associated Diagnosis Comme nts COLONOSCOPY Routine 02/06/2006 8:40 AM Results f or this COSMETICS DEMONSTRATOR procedure are i n the results section . documented in this encounter Results COLONOSCOPY (02/06/2006 8:40 AM COSMETICS DEMONSTRATOR) [facility] Method Time Signature COLONOSCOPY Endoscopy [...] oxygen saturations were monitored ?cont inuously. [id number] introduced through ?the anus and advanced [...] yrs. ?- Return to primary care provider [place] N. ? CPT Code(s): ?21655, Colonoscopy, flexible, proxim al to splenic flexure; ?with removal of tumor(s), polyp(s), or other lesion(s) by ?snare technique ICD Code(s): ?211.3, Benign Neoplasm of Colon The codes documented in this report are prelimin hallie and upon comb winder review may be revised to meet current [...] / / Volume Laterality 02/06/2006 8:40 AM COSMETICS DEMONSTRATOR Trae Kay MD PROCEDURES Performing Organization Address City/State/ZIP Code Phon e Number RADIOLOGY RESULTS documented in this encounter Visit Diagnoses Not on filedocumented in this encounter
--- OUTSIDE RECORDS SUMMARY | 2022-10-31 08:27 | XMS_ITS | Encounter Summary ---
:1950 Author Organization [place] Address [facility] [place] [address] Care Team Providers Name Role Phone Unavailable Primary Care Provider Unavailable Encounter Details Date Type Department Care Team Description 06/07/2010 Historic Notes INTERFACED REPORT Interface, Transcript onMD Social History Tobacco Use Types Packs/Day Years Used Date Smoking Tobacco: Never Assessed Sex Assigned at Date Recorded Not on file documented as of this encounter Progress Notes Interface, Analytics Associate - 02/04/2011 11:43 PM CDT Patient Status - Diagnosis/Procedure Laparoscopic assisted right hemicolectomy - Physical status Stable (s/s of potential complications absent or manageable) - Psychosocial status Stable Discharge Planning - Discharge From: [facility] - Patient Care Unit: 5th [...] Dr. Brooks call: - Phone number of [facility] patient should call: - Additional Leave [...]
--- OUTSIDE RECORDS SUMMARY | 2022-10-31 08:27 | XMS_ITS | Encounter Summary ---
:1950 Author Organization [place] Address [address] [place] [address] Care Team Providers Name Role Phone Unavailable Primary Care Provider Unavailable Encounter Details Date Type Department Care Team Description 04/21/2010 Results Only [facility] Anastasia Salas MD Endoscopy [place] [address] [place] [address] [place] [address] [phone] Social History Tobacco Use Types Packs/Day Years [...] encounter Results COLONOSCOPY (04/21/2010 9:45 AM CDT) [facility] Method Time Signature COLONOSCOPY [facility] RAD IOLOGY RESULTS Patient Name: Jeanine [...] ? saturations were monitored continuously. The ? [id number] was introduced through the anus and ? [...]
--- OUTSIDE RECORDS SUMMARY | 2022-10-31 08:27 | XMS_ITS | Encounter Summary ---
:1950 Author Organization [place] Address [address] [place] [address]. [place] [address] Care Team Providers Name Role Phone Unavailable Primary Care Provider Unavailable Encounter Details Date Type Department Care Team Description 04/16/2009 GI Procedure Anastasia Salas MD None [address] [place], [place] [address] (Wo rk) Social History [...] encounter Results COLONOSCOPY (04/16/2009 10:45 AM CDT) [facility] Time Signature COLONOSCOPY Endoscopy RADIOLOGY RESULTS Patient [...] were monitored continuously. The Colonoscope ? P-51 #[id number] was introduced through the anus and ? [...]
--- OUTSIDE RECORDS SUMMARY | 2022-10-31 08:27 | XMS_ITS | Encounter Summary ---
:1950 Author Organization [place] Address [address] [place] [address]. [place] [address] Care Team Providers Name Role Phone Unavailable Primary Care Provider Unavailable Encounter Details Date Type Department Care Team Description 06/01/2010 Historic Notes INTERFACED REPORT Interface, Transcript MD kourtney Social History Tobacco Use Types Packs/Day Years Used Date Smoking Tobacco: Never Assessed Sex Assigned at Date Recorded Not on file documented as of this encounter Progress Notes Interface, Field Crop Farm Worker - 02/05/2011 12:09 AM CDT General Information - How to be Addressed Jeanine - Temporary Family none required Living Arrangements - Source of Information patient - Patient Belongings cell phone; clothing; left contact; right contact; glasses - personal injury attorney #1: Jaylen Pettit - Relationship to patient #1: - Phone 1: [phone] - Cell - Patient's spoken language; [place] Islander or Bilingual communication style Advance Directive - [...] (shingles) Communicable Disease - Recent Travel yes, [place] in Dec 2009 - Communicable Disease none [...] abuse, self neglect, lack of adequate food, correction, medical care, or financial exploitation)? Values/Beliefs/Spiritual Care [...] none Considerations - Developmental none Considerations - Jehovah'S Witness none Considerations Mutuality/Individual Preferences - What information [...]
--- OUTSIDE RECORDS SUMMARY | 2022-10-31 08:27 | XMS_ITS | Encounter Summary ---
:1950 Author Organization [place] Address [address] [place] [address] Care Team Providers Name Role Phone Unavailable Primary Care Provider Unavailable Encounter Details Date Type Department Care Team Description 04/16/2009 Historic Results INTERFACED REPORT Carmelo Valiente [place] [address] (Wo rk) Social History Tobacco Use Types [...] Component Value Ref Test Analysis Performed At [facility] Range Method Time Signature Copath Report CASE: [id number] ^ COPATH Patient Name: DESHAUN PETTIT MR#: [id number] Specimen #: [id number] Collected: 04/16/2009 Received: 04/16/2009 Reported: 04/17/2009 13:58 [...] ad enoma(s). ED/tory 04-17-09 TESTING LAB LOCATION: [address] ??[id number] COLLECTION SITE: Client: [facility] Location: ENDO (R) Specimen (Source) Anatomical Collection Method Collection Time Re ceived Time Location / / Volume Laterality 04/16/2009 04/17/2009 1:59 PM CDT Carmelo Valiente MD LAB - COPATH SPECIAL DIAG OR DERABLES Performing Organization Address City/State/ZIP Code Phon e Number COPATH documented in this encounter Visit Diagnoses Not on filedocumented in this encounter
[2022-10-31 13:59] LABS: Aspartate Amino Transferase* 29 U/L (12-35); Cholesterol* 210 mg/dL (90-199)
[2022-10-31 14:00] LABS: Alanine Aminotransferase* 37 U/L (4-35); HDL Cholesterol* 87 mg/dL (>=50); LDL Cholesterol Calculated 82 mg/dL (<100); Triglycerides* 207 mg/dL (40-149)
== END 2022-10-31 09:20 | disposition home or self-care (01) ==
PROVIDERS: PCP Physician Assistant Medical; Visit Provider Physician Assistant Medical
DX: E78.2 Mixed hyperlipidemia (principal); M85.80 Other specified disorders of bone density and structure, unspecified site
CPT/HCPCS: 80061; 84450; 84460

== ENCOUNTER 2023-08-07 08:45 | Outpatient (CLI) | payer MEDICARE, BC, SELFPAY ==
--- OUTSIDE RECORDS SUMMARY | 2023-08-07 08:49 | XMS_ITS | Continuity of Care Document ---
Author Name Unknown Organization [facility] Address [address] [place] [address] Phone Care Team Providers Care Accounts Receivable Supervisor Name Role Phone Unavailable Unavailable Unavailable Allergies, Adverse Reactions, Alerts Substance Reaction Status Criticality MEPERIDINE HCL Active No Informatio n Medications Medication Instructions Dosage Effective Dates (start - stop) Status Comments simvastatin 20 mg tablet take 1 tablet by oral route every day in the evening 20 MG - Active Aspirin Low Dose 81 mg tablet,delayed release take 1 tablet by oral route every day 81 MG - Active CENTRUM SILVER (unknown strength) take 1 by Oral route once Not Available - Active FiberCon 625 mg tablet wash 1 Tablet by Oral route once - Active Calcium 600 600 mg calcium (1,500 mg) tablet take 1 Capsule by Oral route once - Active Procedures Procedure Date Lucentis Prefilled Syringe Intravitreal Inj-agent (sep Pr Lucentis Prefilled Syringe Scan Computerized; Retina Intravitreal Inj-agent (sep Pr Est Pt Complete Scan Computerized; Retina Intravitreal Inj-agent (sep Pr Lucentis Prefilled Syringe Scan Computerized; Retina Lucentis Prefilled Syringe Intravitreal Inj-agent (sep Pr Intravitreal Inj-agent (sep Pr Scan Computerized; Retina Lucentis Prefilled Syringe Est Patient E/M Moderate MDM Intravitreal Inj-agent (sep Pr Scan Computerized; Retina Lucentis Prefilled Syringe Est Pt Complete Lucentis Prefilled Syringe Scan Computerized; Retina Intravitreal Inj-agent (sep Pr Intravitreal Inj-agent (sep Pr Scan Computerized; Retina Lucentis Prefilled Syringe Intravitreal Inj-agent (sep Pr Scan Computerized; Retina Lucentis Prefilled Syringe Scan Computerized; Retina Lucentis Prefilled Syringe Intravitreal Inj-agent (sep Pr Est Pt Complete Intravitreal Inj-agent (sep Pr Scan Computerized; Retina Lucentis Prefilled Syringe Intravitreal Inj-agent (sep Pr Scan Computerized; Retina Lucentis Prefilled Syringe Intravitreal Inj-agent (sep Pr Scan Computerized; Retina Lucentis Prefilled Syringe Est Pt Complete Offic/outpt E&m [facility] 45 8 Scanning Computerized Ophthalmic Dx Imag e, Retina Intravitreal Inj-agent (sep Pr Left Eye Lucentis Ranibizumab Inj 0.1 Mg 018 Advance Directives Directive Yes / No Effective Date File Name No Information Encounters Encounter Description Practice Location Reason(s) For Visit Diagnoses Date Provider Providers Copied on Encounter [facility], [address], [place], [id number], tel:[phone] Judge Central retinal vein occlusion, left eye, with macular edema No Information Referring Provider: Trae Brar, [address], [place], [address]. tel:[phone] [facility], [address], [place], [id number], [place] tel:[phone] Judge CRVO w/ME (chief complaint) Central retinal vein occlusion, left eye, with macular edemaAge-re lated nuclear cataract, bilateral Sifuentes Jt. [address] [facility], [place], [place], [id number], [place]. tel: Referring Provider: Trae Brar, [address], [place], [address]. tel:[phone] [facility], [address], [place], [id number], [place] tel:[phone] Nabor Central retinal vein occlusion, left eye, with macular edema Sifuentes Jt. [address] [facility], [place], [place], [id number], [place]. tel: Referring Provider: Trae Brar, [address], [place], [address]. tel:[phone] [facility], [address], [place], [id number], [place] tel:[phone] Nabor Central retinal vein occlusion, left eye, with macular edema Sifuentes Jt. [address] [facility], [place], [place], [id number], [place]. tel: Referring Provider: Trae Brar, [address], [place], [address]. tel:[phone] Est Patient E/M Moderate MDM [facility], [address], [place], [id number], [place] tel:[phone] Nabor routine exam (chief complaint) Central retinal vein occlusion, left eye, with macular edemaAge-re lated nuclear cataract, bilateral Aug- [facility]t. [address], [place], [id number], [place]. tel: Referring Provider: Trae Brar, [address], [place], [address]. tel:[phone] [facility], [address], [place], [id number], [place] tel:[phone] Judge blurry vision (chief complaint) Central retinal vein occlusion, left eye, with macular edemaAge-re lated nuclear cataract, bilateral Sifuentes Jt. [address], [place], [place], [id number], [place]. tel: Referring Provider: Jt Sifuentes, [address], [place], [address] . tel:[phone] [facility], [address], [place], [id number], [place] tel:[phone] Jduge CRVO (chief complaint) Central retinal vein occlusion, left eye, with macular edemaAge-re lated nuclear cataract, bilateral Sifuentes Jt. [address], [place], [place], [id number], [place]. tel: Referring Provider: Jt Sifuentes, [address], [place], [address] . tel:[phone] [facility], [address], [place], [id number], [place] tel:[phone] Judge CRVO with ME (chief complaint) Central retinal vein occlusion, left eye, with macular edemaAge-re lated nuclear cataract, bilateral Sifuentes Jt. [address], [place], [place], [id number], [place]. tel: Referring Provider: Jt Sifuentes, [address], [place], [address] . tel:[phone] [facility], [address], [id number], [place] tel:[phone] Judge blurry vision (chief complaint) Central retinal vein occlusion, left eye, with macular edemaAge-re lated nuclear cataract, bilateral Maria Waters. [address], [place], [place], [id number], [place]. tel: Referring Provider: Jt Sifuentes, [address], [place], [address] . tel:[phone] [facility], [address], [place], [id number], [place] tel:[phone] Judge CRVO with ME (chief complaint) Central retinal vein occlusion, left eye, with macular edemaAge-re lated nuclear cataract, bilateral Maria Waters. [address], [place], [place], [id number], [place]. tel: Referring Provider: Jt Sifuentes, [address], [place], [address] . tel:[phone] [facility], [address], [place], [id number], [place] tel:[phone] Judge blurry vision (chief complaint) Central retinal vein occlusion, left eye, with macular edema Maria Waters. [address], [place], [place], [id number], [place]. tel: Referring Provider: Trae Brar, [address], [place], [address]. tel:[phone] [facility], [address], [place], [id number], [place] tel:[phone] Judge CRVO (chief complaint) Central retinal vein occlusion, left eye, with macular edema Maria Waters. [address], [id number], [place]. tel: Referring Provider: Trae Brar, [address], [place], [address]. tel:[phone] [facility], [address], [place], [id number], [place] tel:[phone] Judge routine exam (chief complaint) Central retinal vein occlusion, left eye, with macular edemaAge-re lated nuclear cataract, bilateral Sifuentes Jt. [address], [place], [place], [id number], [place]. tel: Referring Provider: Trae Brar, [address], [place], [address]. tel:[phone] [facility], [address], [place], [id number], [place] tel:[phone] Judge blurry vision (chief complaint) Central retinal vein occlusion, left eye, with macular edema Sifuentes Jt. [address] [facility], [place], [place], [id number], [place]. tel: [facility], [address], [place], [id number], [place] tel:[phone] Judge blurry vision (chief complaint) Central retinal vein occlusion, left eye, with macular edema Sifuentes Jt. [address], [place], [place], [id number], [place]. tel: [facility], [address], [place], [id number], [place] tel:[phone] Judge CRVO OS. NSC OU (chief complaint) Central retinal vein occlusion, left eye, with macular edema Sifuentes Jt. [address], [place], [place], [id number], [place]. tel:[phone] [facility], [address], [place], [id number], [place] tel:[phone] Judge blurry vision (chief complaint) Central retinal vein occlusion, left eye, with macular edemaAge-re lated nuclear cataract, bilateral Sifuentes Jt. [address], [place], [place], [id number], [place]. tel: [facility], [address], [place], [id number], [place] tel:[phone] Judge blurry vision (chief complaint) Central retinal vein occlusion, left eye, with macular edema Sifuenteskathleen Loran. [address], [place], [place], [id number], [place]. tel: [facility], [address], [place], [id number], [place] tel:[phone] Judge blurry vision (chief complaint) Central retinal vein occlusion, left eye, with macular edema Sifuentescherelle Loran. [address], [place], [place], [id number], [place]. tel: [facility], [address], [place], [id number], [place] tel:[phone] Judge blurry vision (chief complaint) Central retinal vein occlusion, left eye, with macular edema Sifuentescherelle Loran. [address], [place], [place], [id number], [place]. tel: [facility], [address], [place], [id number], [place] tel:[phone] Judge blurry vision (chief complaint) Central retinal vein occlusion, left eye, with macular edema Sifuenteskathleen Loran. [address], [place], [place], [id number], [place]. tel: [facility], [address], [place], [id number], [place] tel:[phone] Judge CRVO (chief complaint) Central retinal vein occlusion, left eye, with macular edema Maria Waters. [address], [place], [id number], [place]. tel:[phone] Offic/outpt E&m [place] Mod-hi 45 [facility], [address], [place], [id number], [place] tel:[phone] Judge fuzzy vision (chief complaint) Central retinal vein occlusion, left eye, with macular edemaAge-re lated nuclear cataract, bilateral Maria Waters. [address], [place], [id number], [place]. tel:[phone] Family History Family Member Type Diagnosis Age At Onset Problem (finding) Family history of degenerative disorder of macula Payers Payer name Insurance type Covered libertarian ID Authoriza tion(s) Medicare [facility] MB [id number] [facility] [id number] Social History Type Description Quantity Date Captured Comments Alcohol Use Details 2 drinks daily Caffeine Use Details 1-2 cups per day Tobacco Use Status No Information Smoking Status No Information Sex Female Chief Complaint And Reason For Visit No Information Reason For Referral Reason For Referral No Information History Of Present Illness Encounter Date Complaint History Of Prese nt Illness CRVO w/ME The 72 year old female presents for evaluation of CRVO w/ME in the left eye. Patient states no vision changes OU since last visit. PT denies any new flashes or floaters OU. No pain or distortion OU. routine exam The 72 year old female presents for evaluation of routine exam in the right eye and left eye. PT states VA OU is stable with no change since last visit. PT denies new floaters, flashes, pain, or distortion OU. blurry vision The 71 year old female presents for evaluation of blurry vision in the right eye and left eye. Patient states the vision OU has been stable since last exam. Denies FF, pain and distortion OU. CRVO The 71 year old female presents for evaluation of CRVO in the left eye. Patient states her vision is holding stable in both eyes since her last visit. She denies seeing any new flashes, floaters or distortion. She does not have any pain in either eye. CRVO with ME The 71 year old female presents for re-evaluation of CRVO with ME in the left eye. Patient states her VA OU remain stable since her last visit x 6 weeks ago. Patient denies flashes, floaters, distortion or pain OU. blurry vision The 71 year old female presents for 6 week CRVO, OCT OU re-evaluation. Pt complains of unchanged blurry vision OD<OS onset several months. Pt denies flashes, floaters, distortion and pain OU. CRVO with ME The 71 year old female presents for 7 months OCT OU, re-evaluation of CRVO with ME in the left eye. Patient states her VA OU remain stable since her last visit x 7 months ago. Patient denies flashes, floaters, distortion or pain OU. blurry vision Reeval CRVO/CME OS, OCT OU. Pt s/p last Lucentis OS 12-31-2020. Pt states vision OS still very blurry, like someone splattered paint on it, may have improved a little since 12-31-2020 exam. Pt denies visoin changes or complaints in OD since 12-31-2020 exam. CRVO The 70 year old female presents for evaluation of CRVO in the left eye. Patient states vision has remained stable OU x 4 weeks. Patient saw a floater that went away quickly but is unsure of what eye it was in x 3 weeks. Patient denies any flashes, distortion or pain OU. routine exam The 70 year old female presents for evaluation of routine exam in the left eye. It occurs when focusing. The onset was upon awakening. It affects both near and far vision. The condition is not any better. The condition is described as hazy. In addition, the condition is associated with daily activity and chores. OD no vision complaints blurry vision The 69 year old female presents for evaluation of blurry vision in the left eye. Patient presents with blurred vision in the left eye, this is persisitent and without change since last tx. She notes any vision changes in the right eye. Patient presents with occ floaters. blurry vision The 69 year old female presents 6 weeks OCT OU for CRVO re-eval. Patient states vision OU is the same since her last visit, still has trouble reading small prints. Patient denies flashes, floaters, pain, and distortion OU. CRVO OS. NSC OU The 69 year old female presents for evaluation of CRVO OS. NSC OU. 5 weeks OCT OU re-eval for Lucentis 0.5. HX of IVL. 5 ( 11/04/19) with Dr Inman. Patient states since last VA test on 10/03/19 , VA OU is unchanged. No worsening/new distortion noted OU. Patient denies new flashes, and eye pain OU. No new floaters OU. blurry vision The 69 year old female presents for evaluation of blurry vision in the left eye. Patients states VA continues to be blurred since last visit. The changes progressively happened over time, but now seems stable with treatment. Pt denies new flashes floaters or pain. Condition limits patients ability to see clearly for near and far. Pt reports there is tearing and redness for the past month OU. OD is unchanged. Patients states she was receiving treatment every 5 weeks, her last Lucentis was on 08/26/2019 OS blurry vision The 68 year old female presents for evaluation of blurry vision in the left eye. Patients states VA continues to be blurred since last visit. The changes progressivly happened over time, but now are stable with treatment. Pt denies new flashes floaters or pain. Condition limits patients ability to see clearly for near and far. OD is unchanged. blurry vision The 68 year old female presents for evaluation of blurry vision in the left eye. Patients states VA continues to be blurred since last visit. The changes progressivly happened over time, but now are stable with treatment. Pt denies new flashes floaters or pain. Condition limits patients ability to see clearly for near and far. OD is unchanged. blurry vision The 68 year old female presents 6 weeks OCT OU for CRVO re-evaluation. Patient states vision OU is the same since her last visit, says that her depth perception seems off OS. Patient denies flashes, floaters, pain, and distortion OU. blurry vision The 68 year old female presents for evaluation of blurry vision in the left eye. Patient does not note any changes in her vision since her last visit. She denies seeing any new flashes, floaters or distortion in her vision. She does not have any pain in either eye. CRVO The 68 year old female presents for evaluation of CRVO in the left eye. Pt states vision has been stable and unchanged since the last exam. Pt denies increase in floaters/flashes of light OU. Pt denies pain OU. Pt denies new distortion OU. fuzzy vision The 68 year old female presents for evaluation of fuzzy vision in the left eye that distorts everything affecting distance va about 2 mos, patient reports having two lucentis injections to the OS eye for CRVO/ME, states her last injection was 07/30/18. Pt states no floaters, no flashes, and no pain OU. Va OD is stable per pt. Functional Status Date Functional Assessmen t No Information Instructions Date Instruction Additional Infor tulio Impression/Plan - Ob serve at this time. Related to Age-related nuclear cataract, bilateral Impression/Plan - Ex am/OCT demonstrate stable, mild CME s/p Lucentis 0.5 10/19/22 (5 weeks). Recent h/o worsening at 6 weeks. H/O macular thinning suggestive of ischemia that will limit her visual potential. The diagnosis, natural history, and prognosis of CRVO were discussed. The R/B/A of anti-VEGF, intraocular/periocular steroids, and observation were discussed. The patient elects to proceed with Lucentis 0.5, which was performed in the office per protocol without complication. Maintain treatment interval at 5 weeks.5 weeks - OCT OU, Lucentis OS #2/3 straight Related to Central retinal vein occlusion, left eye, with macular edema Impression/Plan - OC T: stable, mild CME s/p Lucentis 0.5 10/19/22 (5 weeks). Recent h/o worsening at 6 weeks. H/O macular thinning suggestive of ischemia that will limit her visual potential. The diagnosis, natural history, and prognosis of CRVO were discussed. The R/B/A of anti-VEGF, intraocular/periocular steroids, and observation were discussed. The patient elects to proceed with Lucentis 0.5, which was performed in the office per protocol without complication. Maintain treatment interval at 5 weeks.5 weeks - OCT OU Re-Eval Lucentis OS, DFE OU Related to Central retinal vein occlusion, left eye, with macular edema Impression/Plan - OC T: improving CME s/p Lucentis 0.5 09/14/22 (5 weeks). Recent h/o worsening at 6 weeks. H/O macular thinning suggestive of ischemia that will limit her visual potential. The diagnosis, natural history, and prognosis of CRVO were discussed. The R/B/A of anti-VEGF, intraocular/periocular steroids, and observation were discussed. The patient elects to proceed with Lucentis 0.5, which was performed in the office per protocol without complication. Reduce treatment interval to 5 weeks.5 weeks - OCT OU Lucentis OS #3/3 in series Related to Central retinal vein occlusion, left eye, with macular edema Impression/Plan - Ob serve at this time. Related to Age-related nuclear cataract, bilateral Oct- Impression/Plan - Pt has returned to [place] for the fall and winter months. Exam and OCT demonstrate worsening CME s/p Lucentis 0.5 07/29/22. H/O macular thinning suggestive of ischemia that will limit her visual potential. The diagnosis, natural history, and prognosis of CRVO were discussed. The R/B/A of anti-VEGF, intraocular/periocular steroids, and observation were discussed. The patient elects to proceed with Lucentis 0.5, which was performed in the office per protocol without complication. Reduce treatment interval to 5 weeks.5 weeks - OCT OU Lucentis OS #2/3 in series Related to Central retinal vein occlusion, left eye, with macular edema Impression/Plan - Ob serve at this time. Related to Age-related nuclear cataract, bilateral Impression/Plan - Marck th eyes are due for full dilated semiannual exam today. Exam and OCT reveal persistent CME s/p Lucentis 0.5 01/20/22. Juxtafoveal cysts - appear stable. There is mild macular thinning suggestive of ischemia that will limit her visual potential. The diagnosis, natural history, and prognosis of CRVO were discussed. The R/B/A of anti-VEGF, intraocular/periocular steroids, and observation were discussed. The patient elects to proceed with Lucentis 0.5, which was performed in the office per protocol without complication. Maintain treatment interval at 7 weeks.7 weeks - [place] Related to Central retinal vein occlusion, left eye, with macular edema Impression/Plan - Ob serve at this time. Related to Age-related nuclear cataract, bilateral Impression/Plan - Ex am and OCT demonstrate stable CME s/p Lucentis 0.5 12/09/21. Juxtafoveal cysts - appear improved. History of worsening at 7 weeks, however, she would like to try an extension again. There is mild macular thinning suggestive of ischemia that will limit her visual potential. The diagnosis, natural history, and prognosis of CRVO were discussed. The R/B/A of anti-VEGF, intraocular/periocular steroids, and observation were discussed. The patient elects to proceed with Lucentis 0.5, which was performed in the office per protocol without complication. Extend treatment interval to 7 weeks.7 weeks - OCT OU re-eval for Lucentis 0.5, DFE OU (semiannual) Related to Central retinal vein occlusion, left eye, with macular edema Impression/Plan - Ob serve at this time. Related to Age-related nuclear cataract, bilateral Impression/Plan - Ex am and OCT testing reveal stable CME s/p Lucentis 0.5 10/28/21. Juxtafoveal cysts - similar appearance. History of worsening at 7 weeks. Resolved CWS. There is mild macular thinning suggestive of ischemia that will limit her visual potential. The diagnosis, natural history, and prognosis of CRVO were discussed. The R/B/A of anti-VEGF, intraocular/periocular steroids, and observation were discussed. The patient elects to proceed with Lucentis 0.5, which was performed in the office per protocol without complication. Cont follow up at 6 weeks.6 weeks - OCT OU re-eval for Lucentis 0.5 Related to Central retinal vein occlusion, left eye, with macular edema Impression/Plan - Ob serve at this time. Related to Age-related nuclear cataract, bilateral Impression/Plan - Ex am and OCT testing reveal improving CME s/p Lucentis 0.5 09/16/21. Decrease in juxtafoveal cysts compared to her last visit with me on 09/16/21. History of worsening at 7 weeks. Resolved CWS. There is mild macular thinning suggestive of ischemia that will limit her visual potential. The diagnosis, natural history, and prognosis of CRVO were discussed. The R/B/A of anti-VEGF, intraocular/periocular steroids, and observation were discussed. The patient elects to proceed with Lucentis 0.5, which was performed in the office per protocol without complication. Cont follow up at 6 weeks.6 weeks - OCT OU re-eval for Lucentis 0.5 Related to Central retinal vein occlusion, left eye, with macular edema Impression/Plan - Ob serve at this time. Related to Age-related nuclear cataract, bilateral Impression/Plan - Ex am and OCT testing reveal moderate CME s/p Lucentis 0.5 08/04/21. Some increase in juxtafoveal cysts compared to her last visit with me on 02/11/21. History of worsening at 7 weeks. Resolved CWS. There is mild macular thinning suggestive of ischemia that will limit her visual potential. The diagnosis, natural history, and prognosis of CRVO were discussed. The R/B/A of anti-VEGF, intraocular/periocular steroids, and observation were discussed. The patient elects to proceed with Lucentis 0.5, which was performed in the office per protocol without complication. Cont follow up at 6 weeks.6 weeks - OCT OU re-eval for Lucentis 0.5 Related to Central retinal vein occlusion, left eye, with macular edema Impression/Plan - Ex am and OCT testing reveal stable, mild CME s/p Lucentis 0.5 12/31/20. History of worsening at 7 weeks. Improving intraretinal hemorrhages and resolved CWS. There is mild macular thinning suggestive of ischemia that will limit her visual potential. The diagnosis, natural history, and prognosis of CRVO were discussed. The R/B/A of anti-VEGF, intraocular/periocular steroids, and observation were discussed. The patient elects to proceed with Lucentis 0.5, which was performed in the office per protocol without complication. Cont follow up at 6 weeks.6 weeks - Dr. Inman ([place]) Related to Central retinal vein occlusion, left eye, with macular edema Impression/Plan - Ex am and OCT testing reveal improving CME s/p Lucentis 0.5 11/26/20. History of worsening at 7 weeks. There are scattered 4 quad hemorrhages and CWS throughout the macula - slowly improving. There is mild macular thinning suggestive of ischemia that will limit her visual potential. The diagnosis, natural history, and prognosis of CRVO were discussed. The R/B/A of anti-VEGF, intraocular/periocular steroids, and observation were discussed. The patient elects to proceed with Lucentis 0.5, which was performed in the office per protocol without complication. Extend follow up to 6 weeks.RTC 6 weeks OCT OU reeval Lucentis 0.5 Related to Central retinal vein occlusion, left eye, with macular edema Impression/Plan - Ob serve at this time. Related to Age-related nuclear cataract, bilateral Impression/Plan - Ex am and OCT testing reveal severe CME s/p Lucentis 0.5 10/07/2020. History of worsening at 7 weeks. There are scattered 4 quad hemorrhages and CWS throughout the macula - slowly improving. There is mild macular thinning suggestive of ischemia that will limit her visual potential. The diagnosis, natural history, and prognosis of CRVO were discussed. The R/B/A of anti-VEGF, intraocular/periocular steroids, and observation were discussed. The patient elects to proceed with Lucentis 0.5, which was performed in the office per protocol without complication. Reduce follow-up to 5 weeks.RTC 5 weeks OCT OU reeval Lucentis 0.5 Related to Central retinal vein occlusion, left eye, with macular edema Impression/Plan Related to Centr al retinal vein occlusion, left eye, with macular edema Impression/Plan Related to Centr al retinal vein occlusion, left eye, with macular edema Impression/Plan Related to Centr al retinal vein occlusion, left eye, with macular edema Impression/Plan Related to Age-r elated nuclear cataract, bilateral Impression/Plan Related to Centr al retinal vein occlusion, left eye, with macular edema - PRN Related to Centr al retinal vein occlusion, left eye, with macular edema Impression/Plan - Ex am and OCT testing show stable, mild CME s/p Lucentis 0.5 4 weeks ago. Recent history of severe worsening at 6 weeks. There are scattered 4 quad hemorrhages and CWS throughout the macula. The diagnosis, natural history, and prognosis of CRVO were discussed. The R/B/A of anti-VEGF, intraocular/periocular steroids, and observation were discussed. The patient elects to proceed with Lucentis 0.5 #8, which was performed in the office per protocol without complication. Continue follow-up at 4 weeks.4 weeks - Dr. Trae Inman Related to Central retinal vein occlusion, left eye, with macular edema - Re-eval Lucentis 0 .5 OS OCT OU 4 weeks Related to Central retinal vein occlusion, left eye, with macular edema Impression/Plan - Ex am and OCT testing show improving CME s/p Lucentis 0.5 4 weeks ago. Recent history of severe worsening at 6 weeks. There are scattered 4 quad hemorrhages and CWS throughout the macula. The diagnosis, natural history, and prognosis of CRVO were discussed. The R/B/A of anti-VEGF, intraocular/periocular steroids, and observation were discussed. The patient elects to proceed with Lucentis 0.5 #7, which was performed in the office per protocol without complication. Continue follow-up at 4 weeks.RTC 4 weeks OCT OU reeval for Lucentis 0.5 Related to Central retinal vein occlusion, left eye, with macular edema Impression/Plan - Ex am and OCT testing show worsening CME s/p Lucentis 0.5 6.5 weeks ago. There are scattered 4 quad hemorrhages and CWS throughout the macula. The diagnosis, natural history, and prognosis of CRVO were discussed. The R/B/A of anti-VEGF, intraocular/periocular steroids, and observation were discussed. The patient elects to proceed with Lucentis 0.5 #6, which was performed in the office per protocol without complication. Reduce follow-up to 4 weeks.RTC 4 weeks OCT OU reeval for Lucentis 0.5 Related to Central retinal vein occlusion, left eye, with macular edema Impression/Plan - Ex am and OCT testing continue to show gradual resolution of CME and no evidence of NV. There are scattered 4 quad hemorrhages and CWS throughout the macula. The diagnosis, natural history, and prognosis of CRVO were discussed. The R/B/A of anti-VEGF, intraocular/periocular steroids, and observation were discussed. The patient elects to proceed with Lucentis 0.5 #5, which was performed in the office per protocol without complication.RTC 6 weeks OCT OU reeval for Lucentis 0.5 Related to Central retinal vein occlusion, left eye, with macular edema Impression/Plan - Ex am and OCT testing confirm improving CMEa nd no evidence of NV. There are scattered 4 quad hemorrhages and CWS. The diagnosis, natural history, and prognosis of CRVO were discussed. The R/B/A of anti-VEGF, intraocular/periocular steroids, and observation were discussed. The patient elects to proceed with Lucentis 0.5 #4, which was performed in the office per protocol without complication.RTC 4-6 weeks OCT OU reeval for Lucentis 0.5 Related to Central retinal vein occlusion, left eye, with macular edema Impression/Plan - Ob serve at this time. Related to Age-related nuclear cataract, bilateral Aug- Impression/Plan - Ex am and OCT testing confirm persistent, severe CME but no evidence of NV. There are scattered 4 quad hemorrhages and CWS. The diagnosis, natural history, and prognosis of CRVO were discussed. The R/B/A of anti-VEGF, intraocular/periocular steroids, and observation were discussed. The patient elects to proceed with Lucentis 0.5 # 3, which was performed in the office per protocol without complication.RTC 4-6 weeks OCT OU reeval for Lucentis 0.5 Related to Central retinal vein occlusion, left eye, with macular edema Assessments Type Assessment Date No Information Patient Care Teams Name Effective Dates (start - stop) Status Members No Information
--- NOTE | 2023-08-07 09:15 | CRLHL7_ITS ---
For Patients: As a result of the Cures Act, medical imaging exams and procedure reports are released immediately into your electronic medical record. You may view this report before your referring provider. If you have questions, please contact your health care provider. BILATERAL SCREENING MAMMOGRAM WITH COMPUTER-AIDED DETECTION AND TOMOSYNTHESIS TECHNIQUE: CC and MLO views were obtained. These mammographic images have been obtained using full-field digital technique. These mammographic images were interpreted with the benefit of computer-aided detection. Breast Tomosynthesis was used in this interpretation. COMPARISON FILM: 08/04/22, 08/03/22, 08/07/20. FINDINGS: There are scattered areas of fibroglandular density IMPRESSION: There is no radiographic evidence for malignancy. ASSESSMENT: BI-RADS Category 1: Negative RECOMMENDATION: Routine screening mammogram in 1 year. A lay language report of this examination will be provided to the patient. Brandon Stallings M.D. Diagnostic Radiologist [email or web address] Transcribed: 1:29 p.celina cortez/Dictated by: Brandon Stallings MD @ 08/07/2023 12:17:00 PM (Electronically Signed)
== END 2023-08-07 08:46 | disposition home or self-care (01) ==
LOC: MAMMO 08:46
PROVIDERS: PCP Physician Assistant Medical; Visit Provider Physician Assistant Medical
DX: Z12.31 Encounter for screening mammogram for malignant neoplasm of breast (principal)
CPT/HCPCS: 77063; 77067

== ENCOUNTER 2023-08-11 08:08 | Outpatient (CLI) | payer MEDICARE, BC, SELFPAY ==
--- OUTSIDE RECORDS SUMMARY | 2023-08-15 09:31 | XMS_ITS | Continuity of Care Document ---
Author Name Unknown Organization [facility] Address [address] [place] [address] Phone Care Team Providers Care Prototyper Name Role Phone Unavailable Unavailable Unavailable Allergies, [...] Prefilled Syringe Est Pt Complete Offic/outpt E&m [facility] 45 8 Scanning Computerized Ophthalmic Dx Imag e, Retina Intravitreal Inj-agent (sep Pr Left Eye Lucentis Ranibizumab Inj 0.1 Mg 018 Advance Directives Directive Yes / No Effective Date File Name No Information Encounters Encounter Description Practice Location Reason(s) For Visit Diagnoses Date Provider Providers Copied on Encounter [facility], [address], [place], [id number], tel:[phone] Judge Central retinal vein occlusion, left eye, with macular edema No Information Referring Provider: Trae Brar, [address], [place], [address]. tel:[phone] [facility], [address], [place], [id number], [place] tel:[phone] Judge CRVO w/ME (chief complaint) Central retinal vein occlusion, left eye, with macular edemaAge-re lated nuclear cataract, bilateral [facility] [address] [facility], [place], [place], [id number], [place]. tel: Referring Provider: Trae Brar, [address], [place], [address]. tel:[phone] [facility], [address], [place], [id number], [place] tel:[phone] Nabor Central retinal vein occlusion, left eye, with macular edema [facility] [address] [facility], [place], [place], [id number], [place]. tel: Referring Provider: Trae Brar, [address], [place], [address]. tel:[phone] [facility], [address], [place], [id number], [place] tel:[phone] Nabor Central retinal vein occlusion, left eye, with macular edema [facility] [address] [facility], [place], [place], [id number], [place]. tel: Referring Provider: Trae Brar, [address], [place], [address]. tel:[phone] Est Patient E/M Moderate MDM [facility], [address], [place], [id number], [place] tel:[phone] Nabor routine exam (chief complaint) Central retinal vein occlusion, left eye, with macular edemaAge-re lated nuclear cataract, bilateral Aug- [facility] [address], [place], [id number], [place]. tel: Referring Provider: Trae Brar, [address], [place], [address]. tel:[phone] [facility], [address], [place], [id number], [place] tel:[phone] Jduge blurry vision (chief complaint) Central retinal vein occlusion, left eye, with macular edemaAge-re lated nuclear cataract, bilateral [facility] [address], [place], [place], [id number], [place]. tel: Referring Provider: Jt Sifuentes, [address], [place], [address] . tel:[phone] [facility], [address], [place], [id number], [place] tel:[phone] Judge CRVO (chief complaint) Central retinal vein occlusion, left eye, with macular edemaAge-re lated nuclear cataract, bilateral [facility] [address], [place], [place], [id number], [place]. tel: Referring Provider: Jt Sifuentes, [address], [place], [address] . tel:[phone] [facility], [address], [place], [id number], [place] tel:[phone] Judge CRVO with ME (chief complaint) Central retinal vein occlusion, left eye, with macular edemaAge-re lated nuclear cataract, bilateral [facility] [address], [place], [place], [id number], [place]. tel: Referring Provider: Jt Sifuentes, [address], [place], [address] . tel:[phone] [facility], [address], [id number], [place] tel:[phone] Judge blurry vision (chief complaint) Central retinal vein occlusion, left eye, with macular edemaAge-re lated nuclear cataract, bilateral Maria Waters. [address], [place], [place], [id number], [place]. tel: Referring Provider: Jt Sifuentes, [address], [place], [address] . tel:[phone] [facility], [address], [place], [id number], [place] tel:[phone] Judge CRVO with ME (chief complaint) Central retinal vein occlusion, left eye, with macular edemaAge-re lated nuclear cataract, bilateral Maria Waters. [address], [place], [place], [id number], [place]. tel: Referring Provider: Jt Sifuentes, [address], [place], [address] . tel:[phone] [facility], [address], [place], [id number], [place] tel:[phone] Judge blurry vision (chief complaint) Central retinal vein occlusion, left eye, with macular edema Maria Waters. [address], [place], [place], [id number], [place]. tel: Referring Provider: Trea Brar, [address], [place], [address]. tel:[phone] [facility], [address], [place], [id number], [place] tel:[phone] Judge CRVO (chief complaint) Central retinal vein occlusion, left eye, with macular edema Maria Waters. [address], [id number], [place]. tel: Referring Provider: Trae Brar, [address], [place], [address]. tel:[phone] [facility], [address], [place], [id number], [place] tel:[phone] Judge routine exam (chief complaint) Central retinal vein occlusion, left eye, with macular edemaAge-re lated nuclear cataract, bilateral [facility]t. [address], [place], [id number], [place]. tel: Referring Provider: Trae Brra, [address], [place], [address]. tel:[phone] [facility], [address], [place], [id number], [place] tel:[phone] Judge blurry vision (chief complaint) Central retinal vein occlusion, left eye, with macular edema [facility] [address] [facility], [place], [place], [id number], [place]. tel: [facility], [address], [place], [id number], [place] tel:[phone] Judge blurry vision (chief complaint) Central retinal vein occlusion, left eye, with macular edema [facility] [address], [place], [place], [id number], [place]. tel: [facility], [address], [place], [id number], [place] tel:[phone] Judge CRVO OS. NSC OU (chief complaint) Central retinal vein occlusion, left eye, with macular edema [facility]t. [address], [place], [place], [id number], [place]. tel:[phone] [facility], [address], [place], [id number], [place] tel:[phone] Judge blurry vision (chief complaint) Central retinal vein occlusion, left eye, with macular edemaAge-re lated nuclear cataract, bilateral [facility]t. [address], [place], [place], [id number], [place]. tel: [facility], [address], [place], [id number], [place] tel:[phone] Judge blurry vision (chief complaint) Central retinal vein occlusion, left eye, with macular edema Sifuenteskathleen Loran. [address], [place], [place], [id number], [place]. tel: [facility], [address], [place], [id number], [place] tel:[phone] Judge blurry vision (chief complaint) Central retinal vein occlusion, left eye, with macular edema Sifuentescherelle Loran. [address], [place], [id number], [place]. tel: [facility], [address], [place], [id number], [place] tel:[phone] Judge blurry vision (chief complaint) Central retinal vein occlusion, left eye, with macular edema Sifuentescherelle Loran. [address], [place], [place], [id number], [place]. tel: [facility], [address], [place], [id number], [place] tel:[phone] Judge blurry vision (chief complaint) Central retinal vein occlusion, left eye, with macular edema Sifuenteskathleen Loran. [address], [place], [place], [id number], [place]. tel: [facility], [address], [place], [id number], [place] tel:[phone] Judge CRVO (chief complaint) Central retinal vein occlusion, left eye, with macular edema Maria Waters. [address], [place], [id number], [place]. tel:[phone] Offic/outpt E&m New Mod-hi 45 [facility], [address], [place], [id number], [place] tel:[phone] Judge fuzzy vision (chief complaint) Central retinal vein occlusion, left eye, with macular edemaAge-re lated nuclear cataract, bilateral Maria Waters. [address], [place], [id number], [place]. tel:[phone] Family History Family Member Type Diagnosis Age At Onset Problem (finding) Family history of degenerative disorder of macula Payers Payer name Insurance type Covered libertarian ID Authoriza tion(s) Medicare [facility] MB [id number] BHC [facility] [id number] Social History Type Description Quantity Date Captured Comments Alcohol Use Details 2 drinks daily Caffeine Use Details 1-2 cups per day Tobacco Use Status No Information Smoking Status No Information Sex Female Sexual Orientation Straight or heterosexual Chief Complaint And Reason For Visit No [...] Date Instruction Additional Infor tulio Impression/Plan - Ex am/OCT demonstrate stable, mild [...] to Age-related nuclear cataract, bilateral Impression/Plan - OC T: stable, mild CME [...] vein occlusion, left eye, with macular edema Oct- Impression/Plan - Pt has returned to [...] vein occlusion, left eye, with macular edema Oct- Impression/Plan - Ob serve at this time. [...] treatment interval at 7 weeks.7 weeks - [place] Related to Central retinal vein occlusion, [...] at 6 weeks.6 weeks - Dr. Inman ([place]) Related to Central retinal vein occlusion, left [...] Related to Age-related nuclear cataract, bilateral Impression/Plan Related to Centr [...] to Age-r elated nuclear cataract, bilateral Impression/Plan - Ex am [...] time. Related to Age-related nuclear cataract, bilateral Assessments Type Assessment Date No Information Patient Care Teams Name Effective Dates (start - stop) Status Members No Information
== END 2023-08-11 08:09 | disposition home or self-care (01) ==
LOC: NFLDREF 08-15 09:29
PROVIDERS: PCP Physician Assistant Medical; Referring Provider Physician Assistant Medical; Visit Provider Physician Assistant Medical
DX: Z00.00 Encounter for general adult medical examination without abnormal findings (principal); E78.2 Mixed hyperlipidemia; E03.8 Other specified hypothyroidism; M85.80 Other specified disorders of bone density and structure, unspecified site; N39.0 Urinary tract infection, site not specified
CPT/HCPCS: 80053; 80061; 84439; 84443

== ENCOUNTER 2023-10-27 10:49 | Outpatient (REF) | payer MEDICARE, BC, SELFPAY | END 2023-10-27 10:50 | disposition home or self-care (01) | LOC: NFLDREF 10:49 | PROVIDERS: PCP Physician Assistant Medical; Referring Provider Physician Assistant Medical; Visit Provider Physician Assistant Medical | DX: E03.8 Other specified hypothyroidism (principal) | CPT/HCPCS: 84443 ==

== ENCOUNTER 2024-08-15 07:25 | Outpatient (CLI) | payer MEDICARE, BC, SELFPAY | END 2024-08-15 07:26 | disposition home or self-care (01) | LOC: NFLDREF 08-16 13:36 | PROVIDERS: PCP Physician Assistant Medical; Referring Provider Physician Assistant Medical; Visit Provider Physician Assistant Medical | DX: E03.8 Other specified hypothyroidism (principal); E78.2 Mixed hyperlipidemia; M85.80 Other specified disorders of bone density and structure, unspecified site | CPT/HCPCS: 80053; 80061; 84443 ==

== ENCOUNTER 2024-11-06 12:21 | Outpatient (CLI) | payer MEDICARE, BC, SELFPAY ==
--- NOTE | 2024-11-06 13:00 | CRLHL7_ITS ---
For Patients: As a result of the Century Cures Act, medical imaging exams and procedure reports are released immediately into your electronic medical record. You may view this report before your referring provider. If you have questions, please contact your health care provider. BILATERAL SCREENING MAMMOGRAM WITH COMPUTER-AIDED DETECTION AND TOMOSYNTHESIS TECHNIQUE: CC and MLO views were obtained. These mammographic images have been obtained using full-field digital technique. These mammographic images were interpreted with the benefit of computer-aided detection. Breast Tomosynthesis was used in this interpretation. COMPARISON FILM: 08/07/23, 08/04/22, 08/03/21. FINDINGS: There are scattered areas of fibroglandular density. IMPRESSION: There is no radiographic evidence for malignancy. ASSESSMENT: BI-RADS Category 1: Negative RECOMMENDATION: Routine screening mammogram in 1 year. A lay language report of this examination will be provided to the patient. Brandon Stallings M.D. Diagnostic Radiologist [email or web address] SP/Dictated by: Brandon Stallings MD @ 11/07/2024 12:26:00 PM (Electronically Signed)
--- NOTE | 2024-11-06 13:45 | CRLHL7_ITS ---
For Patients: As a result of the Century Cures Act, medical imaging exams and procedure reports are released immediately into your electronic medical record. You may view this report before your referring provider. If you have questions, please contact your health care provider. DXA BONE MINERAL DENSITY STUDY Current height (in): 64.0. Weight (lb): 150.0. Menopause age: 46. Ethnicity: White. Reason for exam: Osteopenia. 1. Have you had a previous hip or vertebral fracture? No. 2. Have you had any fractures during your adult life which did not result from significant trauma (e.g., auto accident)? No. 3. Did either of your parents have a hip fracture? No. 4. Do you smoke? No. 5. Have you ever taken Glucocorticoids? No. 6. Do you have rheumatoid arthritis? No. 7. Do you have secondary osteoporosis? No. 8. Do you drink 3 or more alcoholic drinks per day? Yes. 9. Are you being treated for osteoporosis? No. 10. Have you ever taken any of the following medications: Actonel, Evista, Fosamax, Miacalcin, Reclast, Boniva, Forteo, HRT (i.e. estrogen/hormone therapy), Protelos, Prolia, Vitamin D, Calcium, other ??? please specify. ANSWER: Yes, Fosamax, vitamin D, HRT, calcium. 11. Do you have any of the following medical conditions: Anorexia or bulimia, asthma or emphysema, end stage renal disease, hyperparathyroidism, any seizure disorders, cancer, inflammatory bowel diseases, hysterectomy, other ??? please specify. ANSWER: No. 12. What was your maximum height (inches)? 64.5. 13. Do you perform weight bearing exercise regularly? No. 14. Do you regularly consume dairy products? Yes. 15. Do you drink caffeinated beverages? Yes. 16. At what age did your period start? 14. 17. Are you premenopausal? No. 18. How many full-term pregnancies have you had? 2. 19. Have you ever missed your period for more than 6 months in a row (not including or menopause)? No. TECHNIQUE: Bone mineral density study was performed using the 10sec. FINDINGS: The results of the study expressed as bone mineral density (BMD) are as follows: Lumbar spine L1 to L4: BMD: 0.806g/cm2. T-score: -2.2. Z-score: 0.1 Neck Left: BMD: 0.635 g/cm2. T-score: -1.9. Z-score: 0.1 Right: BMD: 0.678 g/cm2. T-score: -1.5. Z-score: 0.4 Total Left: BMD: 0.792 g/cm2. T-score: -1.2. Z-score: 0.5 Right: BMD: 0.908 g/cm2. T-score: -0.3. Z-score: 1.4 IMPRESSION: Osteopenia. *Comparison exams done prior to 04/2020 were performed on different unit, [employer]. COMPARISON: Compared with scan of 08/18/2022, the bone mineral density has increased by 2.5 percent at the spine and increased by 0.1 percent at the hip. FRAX 10-year Fracture Risk Major Osteoporotic Fracture: 15 percent Hip Fracture: 4.3 percent Reported Risk Factors: [place] () Neck BMD = 0.635, BMI = 25.7 Brandon Stallings M.D. Diagnostic Radiologist [email or web address] Transcribed: 10:04 am DW/Dictated by: Brandon Stallings MD @ 11/07/2024 9:47:00 AM (Electronically Signed)
== END 2024-11-06 12:22 | disposition home or self-care (01) ==
LOC: MAMMO 12:22
PROVIDERS: PCP Physician Assistant Medical; Visit Provider Physician Assistant Medical
DX: Z12.31 Encounter for screening mammogram for malignant neoplasm of breast (principal); M81.0 Age-related osteoporosis without current pathological fracture; M85.88 Other specified disorders of bone density and structure, other site
CPT/HCPCS: 77063; 77067; 77080

== ENCOUNTER 2025-06-16 08:37 | Outpatient (CLI) | payer MEDICARE, BC, SELFPAY | END 2025-06-16 08:38 | disposition home or self-care (01) | LOC: NFLDREF 06-17 15:29 | PROVIDERS: PCP Physician Assistant Medical; Referring Provider Physician Assistant Medical; Visit Provider Physician Assistant Medical | DX: N30.00 Acute cystitis without hematuria (principal) | CPT/HCPCS: 87086 ==

== ENCOUNTER 2025-08-20 08:21 | Outpatient (CLI) | payer MEDICARE, BC, SELFPAY | END 2025-08-20 08:22 | disposition home or self-care (01) | LOC: NFLDREF 08-22 14:02 | PROVIDERS: PCP Physician Assistant Medical; Referring Provider Physician Assistant Medical; Visit Provider Physician Assistant Medical | DX: E03.8 Other specified hypothyroidism (principal) | CPT/HCPCS: 80053; 80061; 84439; 84443 ==

== ENCOUNTER 2025-11-07 07:45 | Outpatient (CLI) | payer MEDICARE, BC, SELFPAY ==
--- NOTE | 2025-11-07 08:15 | CRLHL7_ITS ---
For Patients: As a result of the Century Cures Act, medical imaging exams and procedure reports are released immediately into your electronic medical record. You may view this report before your referring provider. If you have questions, please contact your health care provider. INDICATION: BILATERAL SCREENING MAMMOGRAM, ASYMPTOMATIC 75 Y/O FEMALE COMPARISON: 11/06/2024, 08/07/2023, 08/04/2022 TECHNIQUE: Digital mammogram in CC and MLO projections including computer-aided detection (CAD) and tomosynthesis. BREAST COMPOSITION: There are scattered areas of fibroglandular density. FINDINGS: No suspicious findings. ASSESSMENT: BI-RADS 1 Negative RECOMMENDATION: Annual screening mammogram. A lay language report of this examination will be provided to the patient. Dictated by: Brandon Stallings MD @ 11/07/2025 09:14:17 (Electronically Signed)
== END 2025-11-07 07:46 | disposition home or self-care (01) ==
LOC: MAMMO 07:46
PROVIDERS: PCP Physician Assistant Medical; Visit Provider Physician Assistant Medical
DX: Z12.31 Encounter for screening mammogram for malignant neoplasm of breast (principal)
CPT/HCPCS: 77063; 77067

== ENCOUNTER 2025-11-11 08:14 | Outpatient (CLI) | payer MEDICARE, BC, SELFPAY | END 2025-11-11 08:15 | disposition home or self-care (01) | LOC: NFLDREF 11-17 04:55 | PROVIDERS: PCP Physician Assistant Medical; Referring Provider Physician Assistant Medical; Visit Provider Physician Assistant Medical | DX: E03.8 Other specified hypothyroidism (principal) | CPT/HCPCS: 84443 ==